=== PATIENT | female | born 1985 | race Caucasian/White ===

== ENCOUNTER 2023-06-15 09:55 | Outpatient (OUT) | payer OTHER, SELFPAY ==
[2023-06-15 10:20] LABS: Basophils Percent Auto 0.4 % (0.2-2.0); Eosinophils Absolute Auto 0.1 10^3/uL (0.0-0.7); Eosinophils Percent Auto 1.6 % (0.9-7.0); Hemoglobin 14.3 g/dL (12.0-16.0); Immature Granulocytes Abs Auto 0.01 10^3/uL (0.00-0.03); Immature Granulocytes Pct Auto 0.1 % (0.0-0.5); Lymphocytes Absolute Auto 1.9 10^3/uL (1.2-3.8); Lymphocytes Percent Auto 27.5 % (20.5-60.0); Mean Corpuscular HGB Conc 33.3 g/dL (29.9-35.2); Mean Corpuscular Hemoglobin 30.7 pg (26.7-34.0); Mean Corpuscular Volume 92.3 fL (81.0-99.0); Mean Platelet Volume 9.8 fL (9.5-13.5); Monocytes Absolute Auto 0.5 10^3/uL (0.3-0.8); Monocytes Percent Auto 7.1 % (1.7-12.0); Neutrophils Absolute Auto 4.2 10^3/uL (1.4-6.5); Neutrophils Percent Auto 63.3 % (43.0-75.0); Platelet Count 369 10^3/uL (150-450); Red Blood Count 4.66 10^6/uL (4.20-5.40); Red Cell Distribution Width 12.4 % (11.0-15.0); White Blood Count 6.7 10^3/uL (4.0-11.0)
[2023-06-15 10:32] LABS: Estimated Average Glucose 103 mg/dL; Glycohemoglobin A1C 5.2 % (4.5-6.2)
[2023-06-15 11:28] LABS: Alanine Aminotransferase 20 U/L (14-59); Albumin Level 3.7 g/dL (3.4-5.0); Alkaline Phosphatase 99 U/L (46-116); Anion Gap 14.5; Aspartate Amino Transferase 9 U/L (15-37); BUN Creatinine Ratio 9.4; Bilirubin Total 0.5 mg/dL (0.2-1.0); Calcium 9.1 mg/dL (8.5-10.1); Carbon Dioxide 26.6 mmol/L (21.0-32.0); Chloride 103 mmol/L (98-107); Chol HDL Ratio 3.1; Cholesterol 144 mg/dL (<=200); Estimated GFR (African America >60 (>=60); Estimated GFR (Non-African Ame >60 (>=60); Free T3 3.13 pg/mL (2.18-3.98); Globulin 3.6 g/dL; Glucose 102 mg/dL (74-106); HDL Cholesterol 47 mg/dL (40-60); LDL Cholesterol Calculated 80.6 mg/dL; Potassium 3.1 mmol/L (3.5-5.1); Sodium 141 mmol/L (136-145); Thyroid Stimulating Hormone 1.506 uIU/mL (0.358-3.740); Total Protein 7.3 g/dL (6.4-8.2); Triglycerides 82 mg/dL (<=150); VLDL CHOLESTEROL 16.4 mg/dL
[2023-06-17 12:07] LABS: Insulin 15.5 uIU/mL (2.6-24.9)
== END 2023-06-15 09:56 | disposition home or self-care (01) ==
PROVIDERS: PCP Family Medicine; Visit Provider Family Medicine
DX: Z00.00 Encounter for general adult medical examination without abnormal findings (principal); E78.5 Hyperlipidemia, unspecified; R73.09 Other abnormal glucose; D64.9 Anemia, unspecified
CPT/HCPCS: 36415; 80053; 80061; 83036; 83525; 83540; 84436; 84443; 84481; 85025

== ENCOUNTER 2023-09-03 12:31 | Outpatient (OUT) | payer OTHER, SELFPAY ==
--- OUTSIDE RECORDS SUMMARY | 2023-09-03 12:44 | XMS_ITS | CCD ---
Author Name Unknown Address [address] [facility] [address] [place] [id number] Organization [facility] Care Team Providers Care Goodwill Representative Name Role Phone MD Malu Fisher Primary Care Provider [phone] DO Alejandro Alvarez Attending Provider Kim, Alejandro Admitting Unavailable Visci, Alejandro Attending Unavailable Malu Fisher Primary Care Unavailable Viscelina, Alejandro Admitting Unavailable Viscelina, Alejandro Attending Unavailable Malu Fisher Primary Care Unavailable HOY ., DR TORIBIO Primary Care Unavailable HOY ., DR TORIBIO Admitting Unavailable HOY ., DR TORIBIO Attending Unavailable HOY ., DR TORIBIO Consulting Unavailable WEST, DR CHRISTINA Camara Consulting Unavailable HOY ., DR TORIBIO Primary Care Unavailable HOY ., DR TORIBIO Admitting Unavailable HOY ., DR TORIBIO Attending Unavailable HOY ., DR TORIBIO Consulting Unavailable HOY ., DR TORIBIO Primary Care Unavailable HOY ., DR TORIBIO Admitting Unavailable HOY ., DR TORIBIO Attending Unavailable HOY ., DR TORIBIO Consulting Unavailable HOY ., DR TORIBIO Primary Care Unavailable EMILY, DR LACEY Velazquez Attending Unavailteodoro DIAZ, DR LACEY Velazquez Consulting Unavailteodoro DIAZ, DR LACEY Velazquez Admitting Unavailteodoro e DISHA, DR CHRISTINA Camara Consulting Unavailable Malu Fisher Primary Care Physician [phone] Unavailable Unavailable Unavailable Allergies Allergy Classification Reported Allergen(s) Allergy Type Date of Onset Reaction(s) Facility (6 sources) Ciprofloxacin; Translations: [ciprofloxacin] Drug Allergy 12-03-2018 [facility] Repository (1 source) Ciprofloxacin Drug Allergy [facility] Repository Medications Current Medications Medication Drug Class(es) Dates Sig (Normalized) Sig (Original) acetaminophen 325 mg / HYDROcodone bitartrate 5 mg oral tablet (1 source) Opioid Agonist Start: 04-27-2022 take 1 tablet by mouth every six hours Hydrocodone-Aceta minophen Active 1 TAB PO Q6H 12 April 27, 2022 Bentyl (3 sources) Anticholinergic Start: 06-30-2017 Bentyl 20 mg, Refills(s) 0 Start Date: 06/30/17 Status: Ordered Start: 06-29-2017 End: 12-03-2018 take 20 mg by mouth four times daily Dicyclomine Discontinued 20 MG PO Four times daily June 29, 2017 1:59pm December 03, 2018 11:33am escitalopram 10 mg oral tablet (1 source) Serotonin Reuptake Inhibitor Start: 04-27-2022 take 1 tablet by mouth once daily Escitalopram Oxalate (Lexapro) 10 mg Tablet Active 10 MG PO Daily April 27, 2022 12:00am ibuprofen 600 mg oral tablet (4 sources) Nonsteroidal Anti-inflammatory Drug Start: 04-27-2022 Ibuprofen Active 600 MG PO Every 6 hours April 27, 2022 12:00am do not exceed 4 doses in a 24 hour period Start: 12-03-2018 End: 04-27-2022 Ibuprofen Discontinued 800 M G PO every 6 to 8 hours December 03, 2018 12:00am April 27, 2022 8:55am Zofran (3 sources) Serotonin-3 Receptor Antagonist Start: 06-30-2017 Zofran Refills(s) 0 Start Date: 06/30/17 Status: Ordered Start: 06-29-2017 End: 12-03-2018 take 1 tablet by mouth every eight hours Ondansetron (Zofran Odt) 4 mg tablet,disintegrating Discontinued 4 MG PO Q8H 9 3 June 29, 2017 1:00am December 03, 2018 11:33am pantoprazole 40 mg delayed release oral tablet (1 source) Proton Pump Inhibitor Start: 06-30-2017 take 1 tablet by mouth once daily Protonix 40 mg Tab-DR 40 mg = 1 tab(s), Oral, Daily, # 30 tab(s), Refills(s) 0 Start Date: 06/30/17 Status: Ordered Completed/Discontinued Medications Medication Drug Class(es) Dates Sig (Normalized) Sig (Original) acetaminophen 325 mg / oxyCODONE hydrochloride 5 mg oral tablet (5 sources) Opioid Agonist Start: 08-05-2019 End: 04-27-2022 take 1-2 tablets by mouth every six hours as needed for pain Oxycodone-Acetamino phen (Percocet) 5-325 mg tablet Discontinued 1 TAB PO Q6H 10 August 05, 2019 April 27, 2022 6:13am May take 1-2 tabs q 6 hours prn pain Start: 12-03-2018 End: 08-05-2019 take 1 tablet by mouth every eight hours Oxycodone-Acetaminophen (Percocet) 5-325 mg tablet Discontinued 1 TAB PO Q8H 7 3 December 03, 2018 August 05, 2019 7:17am loperamide hydrochloride 2 mg oral tablet (2 sources) Opioid Agonist Start: 06-29-2017 End: 12-03-2018 Loperamide (Imodium A-D) 2 mg capsule Discontinued 2 MG PO EVERY 1-2 HOURS June 29, 2017 1:00am December 03, 2018 11:33am after each loose stool until symptoms controlled; do not exceed 16 mg total dose in 24 hrs tamsulosin hydrochloride 0.4 mg oral capsule (3 sources) alpha-Adrenerg ic Thania Start: 12-03-2018 End: 08-05-2019 take 1 capsule by mouth once daily at bedtime Tamsulosin (Flomax) 0.4 mg capsule Discontinued 0.4 MG PO Daily at bedtime 7 7 December 03, 2018 12:00am August 05, 2019 7:17am Problems Active Problems Problem Classification Problem Date Documented Date Episodic/Chronic Abdominal pain (3 sources) Abdominal pain; Translations: [Unspecified abdominal pain] 06-29-2017 Episodic Calculus of urinary tract (3 sources) Kidney stone; Translations: [Calculus of kidney] 12-03-2018 Episodic Menstrual disorders (1 source) Excessive and frequent menstruation with regular cycle; Translations: [Excessive and frequent menstruation with regular cycle] Onset: 04-27-2022 Chronic Other nervous system disorders (1 source) Acute postoperative pain; Translations: [Other acute postprocedural pain] 04-27-2022 Episodic Other nervous system disorders (1 source) Other acute postprocedural pain; Translations: [Other acute postprocedural pain] Onset: 04-27-2022 Episodic Other screening for suspected conditions (not mental disorders or infectious disease) (4 sources) Encounter for screening mammogram for malignant neoplasm of breast; Translations: [ENC SCR MAMMO MALIG NEOPLASM BREAST] Onset: 08-04-2022 Episodic Residual codes; unclassified (1 source) Family history of malignant neoplasm of breast; Translations: [FAMILY HX MALIG NEOPLASM OF BREAST] Onset: 08-11-2022 Episodic Sprains and strains (2 sources) Unspecified sprain of right shoulder joint, initial encounter; Translations: [Sprain of ligament of right shoulder joint] Onset: 07-19-2023 Episodic Unclassified (1 source) Encounter for preprocedural laboratory examination; Translations: [Encounter for preprocedural laboratory examination] Onset: 04-25-2022 Unclassified (3 sources) COUGH, UNSPECIFIED; Translations: [COUGH, UNSPECIFIED] Onset: 07-17-2022 Unclassified (1 source) CONTACT W/AND (SUSP) EXPOS COVID-19; Translations: [CONTACT W/AND (SUSP) EXPOS COVID-19] Onset: 07-17-2022 Past or Other Problems Problem Classification Problem Date Documented Da te Episodic/Chronic Unclassified (1 source) COUGH, UNSPECIFIED; Translations: [COUGH, UNSPECIFIED] Onset: 07-13-2022 Results Test Name Value Interpretation Reference Range Facility CBC AUTO DIFFon 11-07-2022 BASO # 0.0 103/ul Normal 0.0-0.1 [facility] Comment on above: Performed By: #### C BC #### [facility] [address] [place] [address] Dr. Javy Jack Basophils/100 WBC (Bld) 0.4 % Normal 0.2-2.0 [facility] Comment on above: Performed By: #### C BC #### [facility] [address] [place] [address] Dr. Javy Jack EO # 0.2 103/ul Normal 0.0-0.[address] [facility] Comment on above: Performed By: #### C BC #### [facility] [address] [place] [address] Dr. Javy Jack Eosinophils/100 WBC (Bld) 2.0 % Normal 0.9-7.0 [facility] Comment on above: Performed By: #### C BC #### [facility] [address] [place] [address] Dr. Javy Jack Erythrocyte distribution width (RBC) [Ratio] 12.5 % Normal 11.0-15.0 [facility] Comment on above: Performed By: #### C BC #### [facility] [address] [place] [address] Dr. Javy Jack Hematocrit (Bld) [Volume fraction] 43.7 % Normal 36.0-48.0 [facility] Comment on above: Performed By: #### C BC #### [facility] [address] [place] [address] Dr. Javy Jack Hemoglobin (Bld) [Mass/Vol] 14.2 g/dL Normal 12.0-16.0 [facility] Comment on above: Performed By: #### C BC #### [facility] [address] [place] [address] Dr. Javy Jack IG # 0.01 10e3/ul Normal 0.00-0.03 [facility] Comment on above: Performed By: #### C BC #### [facility] [address] [place] [address] Dr. Javy Jack IG % 0.1 % Normal 0.0-0.5 [facility] Comment on above: Performed By: #### C BC #### [facility] [address] [place] [address] Dr. Javy Jack LYMPH # 2.5 103/ul Normal 1.2-3.8 [facility] Comment on above: Performed By: #### C BC #### [facility] [address] [place] [address] Dr. Javy Jack Lymphocytes/100 WBC (Bld) 33.8 % Normal 20.5-60.0 [facility] Comment on above: Performed By: #### C BC #### [facility] [address] [place] [address] Dr. Javy Jack MANUAL DIFF REQ NO Normal [facility] Comment on above: Performed By: #### C BC #### [facility] [address] [place] [address] Dr. Javy Jack MCH (RBC) [Entitic mass] 30.1 pg Normal 26.7-34.0 [facility] Comment on above: Performed By: #### C BC #### [facility] [address] [place] [address] Dr. Javy Jack MCHC (RBC) [Mass/Vol] 32.5 g/dL Normal 29.9-35.[address] [facility] Comment on above: Performed By: #### C BC #### [facility] [address] [place] [address] Dr. Javy Jack MCV (RBC) [Entitic vol] 92.8 fL Normal 81.0-99.0 [facility] Comment on above: Performed By: #### C BC #### [facility] [address] [place] [address] Dr. Javy Jack MONO # 0.7 103/ul Normal 0.3-0.8 [facility] Comment on above: Performed By: #### C BC #### [facility] [address] [place] [address] Dr. Javy Jack Monocytes/100 WBC (Bld) 9.3 % Normal 1.7-12.0 [facility] Comment on above: Performed By: #### C BC #### [facility] [address] [place] [address] Dr. Javy Jack NEUT # 4.1 103/ul Normal 1.4-6.[address] [facility] Comment on above: Performed By: #### C BC #### [facility] [address] [place] [address] Dr. Javy Jack Neutrophils/100 WBC (Bld) 54.4 % Normal 43.0-75.[address] [facility] Comment on above: Performed By: #### C BC #### [facility] [address] [place] [address] Dr. Javy Jack Platelet mean volume (Bld) [Entitic vol] 10.1 fL Normal 9.5-13.[address] [facility] Comment on above: Performed By: #### C BC #### [facility] [address] [place] [address] Dr. Javy Jack PLT 366 103/ul Normal 150-450 [facility] Comment on above: Performed By: #### C BC #### [facility] [address] [place], [place] [address] Dr. Javy Jack RBC 4.71 106/ul Normal 4.20-5.40 [facility] Comment on above: Performed By: #### C BC #### [facility] [address] [place], [place] [address] Dr. Javy Jack WBC 7.5 103/ul Normal 4.0-11.0 [facility] Comment on above: Performed By: #### C BC #### [facility] [address] [place], [place] [address] ABD/PELVIS WO CONon 11-07 CT ABD/PELVIS WO CON EXAMINATION: CT ABD/PELVIS WO CON, 11/07/2022 8:10 AM EDT HISTORY: CALCULUS OF KIDNEY COMPARISON: None. TECHNIQUE: CT scan of the abdomen and pelvis was performed without IV contrast. CT dose reduction technique was used, including Automated Exposure Control. FINDINGS: LUNG BASES: No visible pulmonary or pleural disease. LIVER: No enlargement, atrophy, abnormal density, or significant focal lesion. BILIARY: Surgical clips from cholecystectomy PANCREAS: No lesion, fluid collection, ductal dilatation, or atrophy. SPLEEN: No enlargement or focal lesion. ADRENALS: No mass or enlargement. KIDNEYS: Asymmetric enlargement of the right kidney. Mild right hydroureteronephrosi s extending to a 3 mm stone in the distal right ureter axial image 112, 1 cm proximal to the ureterovesical junction. Bilateral nonobstructing nephrolithiasis. No left obstructive uropathy. BOWEL/MESENTERY: No visible mass, obstruction, or bowel wall thickening. Normal appendix AORTA/VASCULAR: No aneurysm or dissection. RETROPERITONEUM: No mass or adenopathy. LYMPH NODES: No adenopathy. URINARY BLADDER: No visible focal wall thickening, lesion, or calculus. PELVIC ORGANS: Hysterectomy ABDOMINAL WALL: No mass or hernia. BONES: No bony lesion or fracture. Rotatory dextrocurvature centered at L2 OTHER: Negative. IMPRESSION: 3 mm distal right ureterolith with associated mild right obstructive uropathy Electronically authenticated by: CHRISTINA GAUTHIER Date: 2022-11-07 09:05 Normal [facility] ER URINE PROFILEon 3 Bilirubin Ql (U) Negative Normal NEGATIVE [facility] Comment on above: Performed By: #### Harika BUCK UMICRO #### [facility] [address] [place] [address] Dr. Javy Jack Clarity (U) CLEAR Normal CLEAR [facility] Comment on above: Performed By: #### E JOANR, UMICRO #### [facility] [address] [place] [address] Dr. Javy Jack Color (U) YELLOW Normal YELLOW [facility] Comment on above: Performed By: #### E HEBER UMICRO #### [facility] [address] [place] [address] Dr. Javy MENJIVAR A micrscopic examination will be performed if indicated. Normal [facility] Comment on above: Performed By: #### Harika BUCK UMICRO #### [facility] [address] [place] [address] Dr. Javy Jack Glucose Ql (U) Negative Normal NEGATIVE [facility] Comment on above: Performed By: #### Harika BUCK UMICRO #### [facility] [address] [place] [address] Dr. Javy Jack Hemoglobin Ql (U) MODERATE Abnormal NEGATIVE The [facility] Comment on above: Performed By: #### Harika BUCK UMICRO #### [facility] [address] [place] [address] Dr. Javy Jack Ketones Ql (U) TRACE Abnormal NEGATIVE [facility] [place] [facility] Comment on above: Performed By: #### Harika BUCK UMICRO #### [facility] [address] [place] [address] Dr. Javy Jack LEUKOCYTES Negative Normal NEGATIVE [facility] Comment on above: Performed By: #### Harika BUCK UMICRO #### [facility] [address] [place] [address] Dr. Javy Jack Nitrite Ql (U) Negative Normal NEGATIVE [facility] [place] [facility] Comment on above: Performed By: #### Harika BUCK UMICRO #### [facility] [address] [place] [address] Dr. Javy Jack pH (U) 5.5 [pH] Normal 5-[address] [facility] Comment on above: Performed By: #### SERA DARBY #### [facility] [address] [place] [address] Dr. Javy Jack SPEC GRAVITY >=1.030 Abnormal 1.005-<=1.025 [facility] Comment on above: Performed By: #### TERI DARBYRO #### [facility] [address] [place] [address] Dr. Javy Jack UA PROTEIN Negative Normal NEGATIVE/ TRACE [facility] Comment on above: Performed By: #### TERI DARBYRO #### [facility] [address] [place] [address] Dr. Javy Jack UR MICRO IND INDICATED Normal [facility] Comment on above: Performed By: #### SERA DARBY #### [facility] [address] [place] [address] Dr. Javy Jack Urobilinogen Qn (U) 0.2 {Felecia'U}/dL Normal 0.2 - 1. 0 [facility] Comment on above: Performed By: #### SERA DARBY #### [facility] [address] [place] [address] Dr. Javy Jack URINE MICROSCOPIC ONLYon BACTERIA TRACE Abnormal NONE SEEN [facility] Comment on above: Performed By: #### TERI DARBYRO #### [facility] [address] [place] [address] Dr. Javy Jack Bacteria identified Cx Nom (U) NOT INDICATED Normal [facility] Comment on above: Performed By: #### TERI DARBYRO #### [facility] [address] [place] [address] Dr. Javy Jack CAST NONE SEEN Normal NONE SEEN [facility] Comment on above: Performed By: #### SERA DARBY #### [facility] [address] [place] [address] Dr. Javy Jack Crystals LM Nom (Urine sed) NONE SEEN Normal NONE SEEN [facility] Comment on above: Performed By: #### E RUR, UMICRO #### [facility] [address] [place] [address] [address] Javy Jack Epithelial cells LM Ql (Urine sed) FEW Abnormal NONE SEEN /RARE [facility] Comment on above: Performed By: #### E RUR, UMICRO #### [facility] [address] [place] [address] [address] Javy Jack MUCOUS TRACE Abnormal NONE SEEN [facility] Comment on above: Performed By: #### E RUR, UMICRO #### [facility] [address] [place] [address] [address] Javy Jack RBC 5-10 Abnormal 0-[address] [facility] Comment on above: Performed By: #### E RUR, UMICRO #### [facility] [address] [place] [address] [address] Javy Jack WBC NONE SEEN Normal NONE SEEN [facility] Comment on above: Performed By: #### E RUR, UMICRO #### [facility] [address] [place] [address] Dr. Javy Jack MG MAMM SCREEN 3D YEISON CADon 08-04-2022 MG MAMM SCREEN 3D YEISON CAD Patient: MEERA ARENAS Exam Date: 08/04/2022 : 1985 Gender:F Ordering : DR MALU FISHER . Admission #: [id number] Family : Order #: [id number] CLICK HERE TO VIEW EXAM RADIOLOGY REPORT PROCEDURE: MAMMOGRAM SCREENING 3D BILATERAL CAD COMPARISON: None. INDICATIONS: Screening mammography Calculator Name NCI Breast Cancer Risk Assessment Tool 5 Year Breast Cancer Risk Not Reported. Lifetime Breast Cancer Risk Not Reported. Personal Breast Cancer No Personal Ovarian Cancer No Treatments None Family Cancers None LOCATION: [facility] BREAST COMPOSITION: Heterogeneously dense,which may obscure small masses. FINDINGS: DIAGNOSTIC CATEGORY 2--BENIGN FINDING: Scattered benign-appearing calcifications are present. Scattered benign-appearing lymph nodes are present. RIGHT BREAST: No significant suspicious finding. Reniform nodule upper outer quadrant, posterior breast likely intramammary lymph node LEFT BREAST: No significant suspicious finding. RECOMMENDATIONS: CLINICAL EVALUATION. PLEASE NOTE: A NORMAL MAMMOGRAM DOES NOT EXCLUDE THE POSSIBILITY OF BREAST CANCER. A CLINICALLY SUSPICIOUS PALPABLE LUMP SHOULD BE BIOPSIED. Dictated by: Christina Gauthier MD on 08/04/2022 at 13:42 Approved by: Christina Gauthier MD on 08/04/2022 at 13:44 Normal [address] [facility] INSULINon 07-19-2022 Insulin 23.9 uIU/mL Normal 2.6-24.[address] [facility] Comment on above: Performed By: #### I NSULIN ####[facility] [id number] [place] [address]Dr. Javy Jack CBC AUTO DIFFon 07-18-2022 BASO # 0.0 103/ul Normal 0.0-0.1 [facility] Comment on above: Performed By: #### C BC #### [facility] [address] [place] [address] [address] Javy Jack Basophils/100 WBC (Bld) 0.4 % Normal 0.2-2.0 [facility] Comment on above: Performed By: #### C BC #### [facility] [address] [place] [address] [address] Javy Jack EO # 0.1 103/ul Normal 0.0-0.7 [facility] Comment on above: Performed By: #### C BC #### [facility] [address] [place] [address] [address] Javy Jack Eosinophils/100 WBC (Bld) 1.9 % Normal 0.9-7.0 [facility] Comment on above: Performed By: #### C BC #### [facility] [address] [place] [address] [address] Javy Jack Erythrocyte distribution width (RBC) [Ratio] 12.4 % Normal 11.0-15.0 [facility] Comment on above: Performed By: #### C BC #### [facility] [address] [place] [address] [address] Javy Jack Hematocrit (Bld) [Volume fraction] 42.5 % Normal 36.0-48.0 [facility] Comment on above: Performed By: #### C BC #### [facility] [address] [place] [address] Dr. Javy Jack Hemoglobin (Bld) [Mass/Vol] 14.1 g/dL Normal 12.0-16.0 [facility] Comment on above: Performed By: #### C BC #### [facility] [address] [place] [address] Dr. Javy Jack IG # 0.02 10e3/ul Normal 0.00-0.03 [facility] Comment on above: Performed By: #### C BC #### [facility] [address] [place] [address] Dr. Javy Jack IG % 0.3 % Normal 0.0-0.5 [facility] Comment on above: Performed By: #### C BC #### [facility] [address] [place] [address] Dr. Javy Jack LYMPH # 1.9 103/ul Normal 1.2-3.[address] [facility] Comment on above: Performed By: #### C BC #### [facility] [address] [place] [address] Dr. Javy Jack Lymphocytes/100 WBC (Bld) 28.0 % Normal 20.5-60.0 [facility] Comment on above: Performed By: #### C BC #### [facility] [address] [place] [address] Dr. Javy Jack MANUAL DIFF REQ NO Normal [facility] Comment on above: Performed By: #### C BC #### [facility] [address] [place] [address] Dr. Javy Jack MCH (RBC) [Entitic mass] 29.6 pg Normal 26.7-34.0 [facility] Comment on above: Performed By: #### C BC #### [facility] [address] [place] [address] Dr. Javy Jack MCHC (RBC) [Mass/Vol] 33.2 g/dL Normal 29.9-35.2 [facility] Comment on above: Performed By: #### C BC #### [facility] [address] [address] [address] Javy Jack MCV (RBC) [Entitic vol] 89.1 fL Normal 81.0-99.[address] [facility] Comment on above: Performed By: #### C BC #### [facility] [address] [place] [address] Dr. Javy Jack MONO # 0.6 103/ul Normal 0.3-0.[address] [facility] Comment on above: Performed By: #### C BC #### [facility] [address] [place] [address] Dr. Javy Jack Monocytes/100 WBC (Bld) 8.6 % Normal 1.7-12.[address] [facility] Comment on above: Performed By: #### C BC #### [facility] [address] [place] [address] Dr. Javy Jack NEUT # 4.1 103/ul Normal 1.4-6.[address] [facility] Comment on above: Performed By: #### C BC #### [facility] [address] [place] [address] Dr. Javy Jack Neutrophils/100 WBC (Bld) 60.8 % Normal 43.0-75.[address] [facility] Comment on above: Performed By: #### C BC #### [facility] [address] [place] [address] Dr. Javy Jack Platelet mean volume (Bld) [Entitic vol] 9.6 fL Normal 9.5-13.[address] [facility] Comment on above: Performed By: #### C BC #### [facility] [address] [place] [address] Dr. Javy Jack PLT 359 103/ul Normal 150-[address] [facility] Comment on above: Performed By: #### C BC #### [facility] [address] [place] [address] Dr. Javy Jack RBC 4.77 106/ul Normal 4.20-5.[address] [facility] Comment on above: Performed By: #### C BC #### [facility] [address] [place] [address] Dr. Javy Jack WBC 6.8 103/ul Normal 4.0-11.0 [facility] Comment on above: Performed By: #### C BC #### [facility] [address] [place] [address] Dr. Javy Jack FREE THYROXINE INDEX T7on FTI 3.07 Normal 1.30-4.50 [facility] Comment on above: Performed By: #### T SH, T7, LIPID, CMP #### [facility] [address] [address] [address] Javy Jack T3U 33.0 % Normal 30.0-39.0 [facility] Comment on above: Performed By: #### T SH, T7, LIPID, CMP #### [facility] [address] [place] [address] Dr. Javy Jack T4 [Mass/Vol] 9.30 ug/dL Normal 4.80-13.90 [facility] Comment on above: Performed By: #### T SH, T7, LIPID, CMP #### [facility] [address] [place] [address] Dr. Javy Jack GLYCOHEMOGLOBIN A1Con 2022 ADA RECOMMENDATION SEE BELOW Normal [facility] Comment on above: Result Comment: ADA RECOMMENDED LIMIT 4.0 - 6.0 ADA THERAPEUTIC TARGET < 7.0 ACTION SUGGESTED > 7.0 Performed By: #### A 1C #### [facility] [address] [place] [address] Dr. Javy Jack Glucose [Mass/Vol] 108 mg/dL Normal [facility] Comment on above: Performed By: #### A 1C #### [facility] [address] [place] [address] Dr. Javy Jack HbA1c (Bld) [Mass fraction] 5.4 % Normal 4.5-6.2 [facility] Comment on above: Performed By: #### A 1C #### [facility] [address] [place] [address] Dr. Javy Jack IRONon 07-18-2022 Iron [Mass/Vol] 92.0 ug/dL Normal 50.0-170.0 [facility] Comment on above: Performed By: #### I MILAGROS #### [facility] [address] [address] [address] Javy Jack LIPID PROFILEon 07-18-2022 CHOL-HDL RATIO NORM SEE BELOW Normal [facility] Comment on above: Result Comment: 3.3 - 4.4 LOW RISK 4.4 - 7.1 AVERAGE RISK 7.1 - 11.0 MODERATE RISK >11.0 HIGH RISK Performed By: #### T SH, T7, LIPID, CMP #### [facility] [address] [address] [address] Javy Jack Cholesterol [Mass/Vol] 162 mg/dL Normal <=200 [facility] Comment on above: Performed By: #### T SH, T7, LIPID, CMP #### [facility] [address] [address] [address] Javy Jack Cholesterol in HDL [Mass/Vol] 51 mg/dL Normal 40-60 [facility] Comment on above: Performed By: #### T SH, T7, LIPID, CMP #### [facility] [address] [address] [address] Javy Jack Cholesterol in LDL [Mass/Vol] 89.6 mg/dL Normal [facility] Comment on above: Performed By: #### T SH, T7, LIPID, CMP #### [facility] [address] [address] [address] Javy Jack Cholesterol.total/Ch olesterol in HDL [Mass ratio] 3.2 {ratio} Normal [facility] Comment on above: Performed By: #### T SH, T7, LIPID, CMP #### [facility] [address] [address] [address] Javy Jack HDL NORMAL > or = 60 mg/dl - LOW CARDIOVASCULAR RISK <40 mg/dl - HIGH CARDIOVASCULAR RISK Normal [facility] Comment on above: Performed By: #### T SH, T7, LIPID, CMP #### [facility] [address] [address] [address] Javy Jack LDL CALC NORMAL SEE BELOW Normal [facility] Comment on above: Result Comment: <100 mg/dl OPTIMAL 100 - 129 mg/dl NEAR OR ABOVE OPTIMAL 130 - 159 mg/dl BORDERLINE HIGH 160 - 189 mg/dl HIGH >190 mg/dl VERY HIGH Performed By: #### T SH, T7, LIPID, CMP #### [facility] [address] [address] [address] Javy Jack Triglyceride [Mass/Vol] 107 mg/dL Normal <=150 [facility] Comment on above: Performed By: #### T SH, T7, LIPID, CMP #### [facility] [address] [address] [address] Javy Jack VLDL CALC 21.4 mg/dL Normal [facility] Comment on above: Performed By: #### T AIDE, T7, LIPID, CMP #### [facility] [address] [address] [address] Javy Jack PROF 14(COMP METB)on 023 Albumin [Mass/Vol] 3.7 g/dL Normal 3.4-5.0 [facility] Comment on above: Performed By: #### T SH, T7, LIPID, CMP ####[facility] [address] [address]DrDane Jack Albumin/Globulin [Mass ratio] 1.1 {ratio} Normal [facility] Comment on above: Performed By: #### T SH, T7, LIPID, CMP ####[facility] [address] [id number] Jack ALP [Catalytic activity/Vol] 109 U/L Normal 46-116 [facility] Comment on above: Performed By: #### T SH, T7, LIPID, CMP ####[facility] [address] [id number] Jack ALT [Catalytic activity/Vol] 33 U/L Normal 14-59 [facility] Comment on above: Performed By: #### T SH, T7, LIPID, CMP ####[facility] [address] [id number] Jack Anion gap [Moles/Vol] 12.6 mmol/L Normal [facility] Comment on above: Performed By: #### T SH, T7, LIPID, CMP ####[facility] [address] [address]Dr. Javy Jack AST [Catalytic activity/Vol] 15 U/L Normal 15-[address] [facility] Comment on above: Performed By: #### T SH, T7, LIPID, CMP ####[facility] [address] [place], [place] [address]Dr. Javy Jack Bilirubin [Mass/Vol] 0.3 mg/dL Normal 0.2-1.0 [facility] Comment on above: Performed By: #### T SH, T7, LIPID, CMP ####[facility] [address] [place], [place] [address]Dr. Javy Jack Calcium [Mass/Vol] 9.0 mg/dL Normal 8.5-10.1 [facility] Comment on above: Performed By: #### T SH, T7, LIPID, CMP ####[facility] [address] [place], [place] [address]Dr. Javy Jack Chloride [Moles/Vol] 102 mmol/L Normal 98-[address] [facility] Comment on above: Performed By: #### T SH, T7, LIPID, CMP ####[facility] [address] [place], [place] [address]Dr. Javy Jack CO2 [Moles/Vol] 27.1 mmol/L Normal 21.0-32.0 [facility] Comment on above: Performed By: #### T SH, T7, LIPID, CMP ####[facility] [address] [place], [place] [address]Dr. Javy Jack Creatinine [Mass/Vol] 0.61 mg/dL Normal 0.55-1.02 [facility] Comment on above: Performed By: #### T SH, T7, LIPID, CMP ####[facility] [address] [place], [place] [address]Dr. Javy Jack EGFR-AF TONGAN >60 Normal >=60 [facility] Comment on above: Performed By: #### T SH, T7, LIPID, CMP ####[facility] [address] [place], [place] [id number]. Javy Jack EGFR-NON AF TONGAN >60 Normal >=[address] [facility] Comment on above: Performed By: #### T SH, T7, LIPID, CMP ####[facility] [address] [address]Dr. Javy Jack Globulin (S) [Mass/Vol] 3.3 g/dL Normal [facility] Comment on above: Performed By: #### T SH, T7, LIPID, CMP ####[facility] [address] [address]Dr. Javy Jack Glucose [Mass/Vol] 122 mg/dL Critically high 74-106 [facility] Comment on above: Performed By: #### T SH, T7, LIPID, CMP ####[facility] [address] [address]Dr. Javy Jack Potassium [Moles/Vol] 3.7 mmol/L Normal 3.5-5.[address] [facility] Comment on above: Performed By: #### T SH, T7, LIPID, CMP ####[facility] [address] [address]Dr. Javy Jack Protein [Mass/Vol] 7.0 g/dL Normal 6.4-8.2 [facility] Comment on above: Performed By: #### T SH, T7, LIPID, CMP ####[facility] [address] [address]Dr. Javy Jack Sodium [Moles/Vol] 138 mmol/L Normal 136-145 [facility] Comment on above: Performed By: #### T SH, T7, LIPID, CMP ####[facility] [address] [address]Dr. Javy Jack Urea nitrogen [Mass/Vol] 9.0 mg/dL Normal 7.0-18.[address] [facility] Comment on above: Performed By: #### T SH, T7, LIPID, CMP ####[facility] [address] [address]Dr. Javy Jack Urea nitrogen/Creatinine [Mass ratio] 14.8 mg/mg Normal [facility] Comment on above: Performed By: #### T SH, T7, LIPID, CMP ####[facility] [address] [phone]. Javy Jack TSHon 07-18-2022 TSH 1.115 uIU/mL Normal 0.358-3.740 [facility] Comment on above: Performed By: #### T SH, T7, LIPID, CMP ####[facility] [address] [phone]. Javy Jack [facility]25 SARS-CoV-2 (COVID-19) RNA JESSICA+probe Ql (Unsp spec) Not detected Normal NOT DETECTED [facility] Comment on above: Result Comment: When diagnostic testing is negative, the possibility of a false negative should be considered in the context of a patient's recent exposures and the presence of clinical signs and symptoms consistent with SARS-CoV-2. This test is not yet approved or cleared by the [place] FDA. When there are no FDA-approved or cleared tests available, and other criteria are met, FDA can make tests available under an emergency access mechanism called an Emergency Use Authorization (EUA). The EUA for this test is supported by the [employer] of Health and Human Service's declaration that circumstances exist to justify the emergency use of in vitro diagnostics for the detection and/or diagnosis of the virus that causes COVID-19. This EUA will remain in effect for the duration of the COVID-19 declaration justifying emergency of IVDs, unless it is terminated or revoked by the FDA (after which the test may no longer be used). Performed By: #### C VDTBH ####[facility] [address] [address]Dr. Javy Jack INFLUENZA A AND B AGon 07-13 INFLUANEGH SEE BELOW Normal [facility] Comment on above: Result Comment: Nega tive for Flu A protein angiten. Infection due to Flu A cannot be ruled out. Flu A angiten in the sample may be below the detection limit of the test. Performed By: #### I NFLUAB ####[facility] [address] [place], [place] [address]Dr. Javy Jack INFLUBNEGH SEE BELOW Normal [facility] Comment on above: Result Comment: Nega tive for Flu B protein antigen. Infection due to Flu B cannot be ruled out. Flu B antigen in the sample may be below the detection limit of the test. Performed By: #### I NFLUAB ####[facility] [address] [phone]. Javy Jack INFLUENZA A AG Negative Normal NEGATIVE SEE COMMENT [facility] Comment on above: Performed By: #### I NFLUAB ####[facility] [address] [place], [place] [address]Zg. Javy Jack INFLUENZA B AG Negative Normal NEGATIVE SEE COMMENT The [facility] Comment on above: Performed By: #### I NFLUAB ####[facility] [address] [phone]. Javy Jack HCG ( test) IA.nagi d Ql (U)Ordered By: Christina Anderson on 04-27-2022 HCG ( test) Ql (U) Negative [facility] HCG,Urineon 04-27-2022 Beta HCG ( test) Ql (U) Negative Normal [facility] Comment on above: Result Comment: PERF ORMED BY: [place] [address] PATHOLOGIST HARDWARE TECHNICIAN TAYLOR AMARAL M.D. Performed By: #### U HCG #### [address] 04-27-2022 L Specimen: [id number] Received: 04/27/22 Status: SRIDEVI Grimm Num: [id number] Spec Type: Surgical Subm Dr: Alejandro Alvarez DO Tissues: A Uterus w/ or w/o tubes ovaries except neoplastic or prolap (UTERUS, CERVIX A Uterus w/ or w/o tubes ovaries-neoplastic Procedures: , Gross/Micro L5, Gross/Micro L2 Age/ Patient Sex Location Account Attending Physician Meera Rivera 36/F [place] [id number] Alejandro Alvarez DO SPEC NUM: [id number] RECD: 04/27/22 STATUS: SRIDEVI GRIMM NUM: [id number] DICK: 04/27/22 [facility] DR: Alejandro Alvarez DO ENTERED: 04/27/[address] [facility] [address]: JOHNNIE TYPE: Surgical DEPT: S ORDERED: , Gross/Micro L5, Gross/Micro L2 ORDERED: , Gross/Micro L5, Gross/Micro L2 Pathological Diagnosis Uterus with cervix and bilateral fallopian tubes, total hysterectomy and bilateral salpingectomy: - Cervix with dilated vessels. - Late secretory phase endometrium. - Myometrium and serosa with no significant histopathology. - Bilateral fallopian tubes with hydrosalpinx and inclusion cyst. - No evidence of dysplasia, hyperplasia or malignancy identified. Clinical Information Menorrhagia, pelvic pain, hydrosalpinx, gram [id number] Gross Description Received in formalin labeled with the patient's name, number and uterus, cervix, bilateral tubes is a 112 g, 8.7 x 6.2 x 4.5 cm uterus with attached bilateral fallopian tubes. The uterine serosa is thompson-pink. The exocervix is purple pink with a central 0.7 cm patent os. The endocervix is thompson, unremarkable. The lush, thompson-red endometrium averages 0.4 cm in thickness. The pink-thompson, trabecular myometrium measures up to 1.4 cm in thickness. No myometrial lesions are identified the right purple pink fallopian tube measures 7.0 x 1.0 cm and has been previously opened at the distal end of the tube. No discrete fallopian scratch that no discrete fimbriae are identified. The lumen is dilated to 0.8 cm. The left purple pittman fallopian tube measures 5.5 x 1.3 x 0.7 cm. The fallopian tube has a blunt distal and. No fimbriae are identified. The lumen is dilated to 0.4 cm. Counter Professional sections are Specimen: [id number] Received: 04/27/22 Status: SRIDEVI Francisclaude Num: [id number] Spec Type: Surgical Subm Dr: Alejandro Alvarez, Tissues: A Uterus w/ or w/o tubes ovaries except neoplastic or prolap (UTERUS, CERVIX A Uterus w/ or w/o tubes ovaries-neoplastic Procedures: HE/7, Gross/Micro L5, Gross/Micro L2 Patient: Meera Rivera [id number] (Continued) Specimen: [id number] Received: 04/27/22 (Continued) Gross Description (Continued) Signed (signature on file) Rajat Taylor MD 04/28/22 1102 Specimen: [id number] Received: 04/27/22 Status: SRIDEVI Grimm Num: [id number] Spec Type: Surgical Subm Dr: Alejandro Alvarez DO Tissues: A Uterus w/ or w/o tubes ovaries except neoplastic or prolap (UTERUS, CERVIX A Uterus w/ or w/o tubes ovaries-neoplastic Procedures: HE/7, Gross/Micro L5, Gross/Micro L2 Patient: Meera Rivera [id number] (Continued) Specimen: [id number] Received: 04/27/22 (Continued) Gross Description (Continued) submitted in 7 cassettes as follows: A1 - Anterior cervix A2 - Posterior cervix A3 - Anterior endomyometrium A4 - Posterior endomyometrium A5 - Serosa A6 - Right fallopian tube A7 - Left fallopian tube Microscopic Description Seven glass slides with H E stained material have been examined. The microscopic findings support the above pathologic diagnosis. CPT Codes 88137 Specimen: [id number] Received: 04/27/22 Status: SRIDEVI Grimm Num: [id number] Spec Type: Surgical Subm Dr: Alejandro Alvarez, Tissues: A Uterus w/ or w/o tubes ovaries except neoplastic or prolap (UTER (more content not included)... Normal [facility] COVID-19 FRon 04-25-2022 SARS-CoV-2 (COVID-19) RNA JESSICA+probe Ql (Unsp spec) Negative Normal Negative [facility] Comment on above: Order Comment: Healt hcare Worker?: N Result Comment: Testing for SARS-CoV-2 by RT-PCR This test was developed and its performance characteristics determined by [employer] and validated at the [facility]. This test has not been FDA cleared or approved. This test has been authorized by FDA under an Emergency Use Authorization (EUA). This test has been validated in accordance with the FDA's Guidance Document (Policy for Diagnostics Testing in Laboratories Certified to Perform High Complexity Testing under CLIA prior to Emergency Use Authorization for Coronavirus Disease-2019 during the Public Health Emergency) issued on September 25, 2019. This test is only authorized for the duration of time the declaration that circumstances exist justifying the authorization of the emergency use of in vitro diagnostic tests for detection of SARS-CoV-2 virus and/or diagnosis of COVID-19 infection under section 564(b)(1) of the Act, 21 U.S.C. 360bbb-3(b)(1), unless the authorization is terminated or revoked sooner. PERFORMED BY: [place] [address] PATHOLOGIST HARDWARE TECHNICIAN TAYLOR AMARAL M.D. Performed By: #### C OVID 19 [facility] #### [address] COVID-19 Positive/NegativeOr dered By: Alejandro Alvarez on 04-25-2022 SARS-CoV-2 (COVID-19) N gene JESSICA+probe Ql (Resp) Negative Negative [facility] Comment on above: Testing for SARS-CoV -2 by RT-PCRThis test was developed and its performance characteristics determined by [employer] and validated at the [facility]. This test has not been FDA cleared or approved. This test has been authorized by FDA under an Emergency Use Authorization (EUA). This test has been validated in accordance with the FDA's Guidance Document (Policy for Diagnostics Testing in Laboratories Certified to Perform High Complexity Testing under CLIA prior to Emergency Use Authorization for Coronavirus Disease-2019 during the Public Health Emergency) issued on September 25, 2019. This test is only authorized for the duration of time the declaration that circumstances exist justifying the authorization of the emergency use of in vitro diagnostic tests for detection of SARS-CoV-2 virus and/or diagnosis of COVID-19 infection under section 564(b)(1) of the Act, 21 U.S.C. 360bbb-3(b)(1), unless the authorization is terminated or revoked sooner. Provider Letteron 03-13-2022 Provider Letter March 13, 2022 MEERA ARENAS [address] [place] [address] MEERA ARENAS 1985 Dear Meera Arenas, We have been trying to reach you with no success. It is important that you return our call regarding your referral from Dr. Blayne Valencia upon receiving this letter. Thank you for your prompt attention to this matter. Sincerely, [facility] Normal [facility] CT Abdomen/Pelvis w/ Contras ton 03-10-2022 CT Abdomen/Pelvis w/ Contrast HISTORY: Bloating. Dysmenorrhea. COMPARISON: Pelvic ultrasound 02/17/2022 TECHNIQUE: Multiple axial images were obtained of the abdomen and pelvis with contrast. Multiplanar reformats were acquired at the CT console. Oral contrast was also given. Delayed images were obtained. All CT scans at this facility use dose modulation, iterative reconstruction, and/or weight based dosing when appropriate to reduce radiation dose to as low as reasonably achievable. FINDINGS: Lung bases are clear. Postsurgical changes of cholecystectomy. The liver, stomach, pancreas, spleen, and adrenal glands are within normal limits. The kidneys enhance uniformly. There are 3 nonobstructing right renal calculi measuring up to 3 mm. No right-sided hydronephrosis. No left-sided urinary tract calculi or hydronephrosis.No evidence of renal mass. Urinary bladder is well-distended. The uterus is present. There is a tubular structure filled with simple density fluid within the left adnexa. No adjacent inflammation. Multiple right ovarian cysts are identified, the largest measuring approximately 3.7 cm. No retroperitoneal or mesenteric lymphadenopathy. Abdominal aorta is non-aneurysmal. No small bowel obstruction. No overt colonic mass or pericolonic inflammation. The appendix is within normal limits. No free air or free fluid. The bones of the abdomen and pelvis are unremarkable. IMPRESSION: Nonspecific left-sided hydrosalpinx. Nonobstructing right renal calculi. Report reported and signed by Gregg Porter on 03/10/2022 1536 Normal [facility] Web [employer] Intern Physician Referralon 022 Physician Referral [phone] [id number] #[id number] Normal [facility] US RUQon 02-22-2022 US RUQ HISTORY: Abdominal bloating. Left-sided abdominal pain. Recent pelvic ultrasound with left hydrosalpinx. History of cholecystectomy and . TECHNIQUE: Sonography of the right upper quadrant and right lower quadrant was performed. Images were obtained and stored in a permanent archive. COMPARISON: None. RESULT: Pancreas: Normal sonographic appearance of the visualized portions. Liver: Normal echotexture, echogenicity, surface contour. No focal lesion. Gallbladder: Cholecystectomy. Gallbladder fossa unremarkable. Biliary Ducts: No intrahepatic or extrahepatic bile duct dilation. CBD measures 0.6 cm. Right Kidney: Imaged portions unremarkable. Ascites: None. Other: Limited evaluation of the right lower quadrant is unremarkable. The appendix is not visualized. No secondary findings of appendicitis. IMPRESSION: Unremarkable ultrasound of the right upper quadrant. Cholecystectomy. Appendix not visualized. Report reported and signed by Ole Benjamin on 02/22/2022 0935 Normal [facility] Vital Signs Date Time Vital Sign Value Performing Clinician Facility 07-19-2023 12:23-0500 Body temperature 98.24 [degF] [facility] 07-19-2023 12:23-0500 Diastolic blood pressure 83 mm[Hg] [facility] 07-19-2023 12:23-0500 Heart rate 90 /min [facility] 07-19-2023 12:23-0500 Respiratory rate 18 /min [facility] 07-19-2023 12:23-0500 SaO2% (BldA) [Mass fraction] 98 % [facility] 07-19-2023 12:23-0500 Systolic blood pressure 135 mm[Hg] [facility] 04-27-2022 14:07-0400 Diastolic blood pressure 68 mm[Hg] MD Malu Fisher Work Phone: [facility] 04-27-2022 14:07-0400 Heart rate 90 /min MD Malu Fisher Work Phone: [facility] 04-27-2022 14:07-0400 SaO2% (BldA) [Mass fraction] 96 % MD Malu Fisher Work Phone: [facility] 04-27-2022 14:07-0400 Systolic blood pressure 107 mm[Hg] MD Malu Fisher Work Phone: [facility] 04-27-2022 13:07-0400 Inhaled oxygen flow rate 2 L/min MD Malu Fisher Work Phone: [facility] 04-27-2022 12:49-0400 Body temperature 98.1 [degF] MD Malu Fisher Work Phone: [facility] 04-27-2022 10:35-0400 Respiratory rate 16 /min MD Malu Fisher Work Phone: [facility] 04-27-2022 07:08-0400 Body height 160.02 cm MD Malu Fisher Work Phone: [facility] 04-27-2022 07:08-0400 Body mass index (BMI) [Ratio] 26.5 kg/m2 MD Malu Fisher Work Phone: [facility] 04-27-2022 07:08-0400 Body weight 68.03 kg MD Malu Fisher Work Phone: [facility] Encounters Encounter Date Encounter Type Care Provider Facility Start: 07-19-2023 End: 07-19-2023 [facility] Start: 11-07-2022 End: 11-07-[address] MALU FISHER . Facility:[facility] Start: 08-04-2022 End: 08-05-[address] MALU FISHER . Facility:[facility] Start: 07-20-2022 Encounter for genera l adult medical examination without abnormal findings DR MALU FISHER . [facility] Start: 07-18-2022 End: 07-19-[address] MALU FISHER . Facility:[facility] Start: 07-18-2022 End: 07-19-2022 Encounter for general adult medical examination without abnormal findings DR MALU FISHER . Facility:[facility] Start: 07-13-2022 End: 07-13-[address] MALU FISHER . Facility:[facility] Start: 04-27-2022 End: 04-27-2022 ambulatory Alejandro Alvarez Facility:[facility] Start: 04-27-2022 End: 04-27-2022 Admission to same day surgery center MD Malu Fisher Work Phone: [facility] [place] Start: 04-27-2022 End: 04-27-2022 ambulatory MD Malu Fisher Work Phone: [facility] Work Phone: Start: 04-25-2022 End: 04-25-2022 ambulatory Alejandro Alvarez Facility:[facility] Start: 04-25-2022 End: 04-25-2022 ambulatory MD Malu Fisher Work Phone: [facility] Work Phone: Start: 04-25-2022 End: 04-25-2022 Patient encounter procedure MD Malu Fisher Work Phone: [facility] Start: 02-27-2022 ambulatory Facility: [email or web address] Procedures Date Procedure Procedure Detail Performing Clinician Start: 04-27-2022 Total hysterectomy v ia vaginal approach MD Malu Fisher Work Phone: [facility] Plan of Treatment Date Care Activity Detail Author Start: 04-27-2022 [facility] Start: 04-27-2022 Hospital admission [facility] Start: 04-25-2022 [facility] Patient referral [facility] Work Phone: SARS-CoV-2 (COVID-19 ) N gene [Presence] in Respiratory specimen by JESSICA with probe detection [facility] Work Phone: Payers Date Payer Category Payer Self-pay [id number] 1985 Unknown [id number] 1985 Unknown [id number] 2.16.84 [id number] 1986 Unknown [id number] 2.16.84 [id number] 1986 Unknown [id number] 2.16.84 [id number] 1986 Unknown [id number] 2.16.84 [id number] 1959 Unknown [id number] 1958 Unknown [id number] 1959 Unknown [id number] Unknown [facility] [id number] Unknown [id number] 2.16.8 [id number] Unknown [id number] 2.16.8 [id number] Social History Date Type Detail Facility Tobacco smoking stat [facility] Unknown if ever smoked [facility] Start: 1985 Sex Assigned At Female F [facility] Start: 08-05-2019 End: 04-27-2022 Tobacco smoking status NMIS Smoker (finding) [facility] Tobacco smoking status No Smokin g Status Entered [facility] Sex Assigned At Female [facility] Goals Date Patient Goal Desired Activity /State Functional Status Date Assessment Result Facility 07-19-2023 Functional Status N/A [facility] Discharge instructions 07-19-2023 Note Date & Type Note Facility 07-19-2023 Hospital Discharg e instructions Patient Education 07/19/2023 13:43:08 Wrist Splint or Brace, Adult Wrist Splint or Brace, Adult A wrist splint or brace is a device that prevents your wrist from moving. A splint supports your wrist like a cast, but is more flexible and can be adjusted more easily than a cast. A wrist brace provides support as well but is generally less rigid. A brace is given for edger hand use while a splint is given for short term use. Wrist splints and braces can be removed or loosened. A splint or brace is held in place with an elastic band or straps. The supporting part of a splint or brace does not always completely surround your wrist. You may need a wrist splint or brace if you have hurt your wrist or if you have a condition that causes swelling. The wrist splint or brace may be worn: To support your wrist. To protect your injury. To prevent further injury. To prevent movement. To reduce pain. To help with healing. It is important to follow instructions from your health care provider about when to wear the splint or brace to make sure your wrist heals correctly. What are the risks? The most dangerous risk of wearing a splint or brace is reduced blood flow to your wrist or hand. This can happen if there is a lot of swelling or if the splint or brace is too tight. Reduced blood supply results in a condition called compartment syndrome and can cause permanent damage. Symptoms include: Pain that is getting worse. Tingling and numbness. Changes in skin color, including paleness or a bluish color. Cold fingers. Other problems can include: Skin irritation that can cause itching, rash, skin sores, or skin infection. Wrist stiffness. This can occur if you have worn a splint for a long time. Wrist weakness. How to wear your wrist splint or brace Your wrist splint or brace should be tight enough to support your wrist without blocking your blood supply. How long you need to wear the splint or brace depends on the type of wrist problem you have. Your health care provider will instruct you about how to wear your wrist splint or brace and how long to wear it. Wear the splint or brace as told by your health care provider. Remove it only as told by your health care provider. Loosen the splint or brace if your fingers tingle, become numb, or turn cold and blue. Do not stick anything inside the splint or brace to scratch your skin. Doing that increases your risk of infection. Check the skin under the splint or brace for any redness or blisters every time you take off the splint. Tell your health care provider about any concerns. Keep the splint clean. If the splint or brace is not waterproof: ?Do not let it get wet. ?Cover it with a watertight covering when you take a bath or a shower. General recommendations Do not put pressure on any part of the splint until it is fully hardened. This may take several hours. Follow directions from your health care provider or the splint fire operations forester for cleaning and caring for your splint or brace. It is important to clean it regularly. Make sure it is completely dry before putting in on. Follow these instructions at home: Managing pain, stiffness, and swelling If directed, put ice on the injured area. ?If you a have a removable splint or brace, remove it as told by your health care provider. ?Put ice in a plastic bag. ?Place a towel between your skin and the bag. ?Leave the ice on for 20 minutes, 2 3 times a day. ?Remove the ice if your skin turns bright red. This is very important. If you cannot feel pain, heat, or cold, you have a greater risk of damage to the area. Move your fingers often to avoid stiffness and to lessen swelling. Raise the injured area above the level of your heart while you are sitting or lying down. Activity Do exercises as told by your health care provider. Ask your health care provider when it is safe to drive with a splint or brace on your wrist. Return to your normal activities as told by your health care provider. Ask your health care provider what activities are safe for you. General instructions Do not use the injured hand to do heavy work, such as lifting, pulling, or pushing. Do not use any products that contain nicotine or tobacco, such as cigarettes, e-cigarettes, and chewing tobacco. These can delay bone healing. If you need help quitting, ask your health care provider. Take ggxp-gli-zxzbfom and prescription medicines only as told by your health care provider. Keep all follow-up visits. This is important. Contact a health care provider if: You have wrist pain or swelling that does not go away. The skin around or under your splint becomes red, itchy, or moist. You have chills or a fever. Your splint or brace feels too tight or too loose. Your splint or brace gets damaged. Get help right away if: You have pain that is getting worse. You have tingling and numbness. You have changes in skin color, including paleness or a bluish color. Your fingers are cold. Summary A wrist splint or brace is a flexible device that supports your wrist and prevents it from moving. Follow instructions from your health care provider about when to wear the splint or brace to make sure your wrist heals correctly. Manage pain, stiffness, and swelling by using ice, moving your fingers often, and raising your wrist above the level of your heart. The main risk of wearing a splint or brace is reduced blood supply to your wrist or hand. If your fingers tingle, become numb, or turn cold and blue, loosen the splint or brace and get help right away. This information is not intended to replace advice given to you by your health care provider. Make sure you discuss any questions you have with your health care provider. Document Revised: 10/14/2020 Document Reviewed: 10/14/2020 [employer] Patient Education 2022 [employer]. 07/19/2023 13:43:08 Wrist Sprain, Adult Wrist Sprain, Adult A wrist sprain is a stretch or tear in the strong tissues that connect the wrist bones to each other. These strong tissues are called ligaments. There are three types of wrist sprains: Grade 1. The ligament is stretched more than normal. There may be a minor amount of wrist pain. Grade 2. The ligament is partially torn. You may be able to move your wrist, but not very much. There may be a moderate amount of wrist pain. Grade 3. The ligament or ligaments are completely torn. You may find it difficult to move your wrist even a little. There may be a significant amount of wrist pain. What are the causes? This condition may be caused by using the wrist too much during sports, exercise, or work. It can also happen due to a fall or during an accident. What increases the risk? You are more likely to develop this condition if: You had a previous wrist or arm injury. You have poor wrist strength and flexibility. You play contact sports, such as football or soccer. You participate in sports that may result in a fall, such as skateboarding, biking, skiing, or snowboarding. You do not exercise regularly. You use exercise equipment that does not fit well. What are the signs or symptoms? Symptoms of this condition include: Pain in the wrist, arm, or hand. Swelling or bruised skin near the wrist, hand, or arm. The skin may look yellow or blue. Stiffness or trouble moving the hand. Hearing a noise, like a pop or a snap, at the time of injury, or feeling a tear at the time of the injury. A warm feeling in the skin around the wrist. How is this diagnosed? This condition is diagnosed with a physical exam. Sometimes an X-ray is taken to make sure a bone did not break. You may also have an MRI of your wrist to check for torn ligaments. How is this treated? This condition is treated by resting and applying ice to your wrist. Additional treatment may include: Taking medicine for pain and inflammation. Wearing a splint, brace, or cast for a short period of time to keep your wrist from moving (immobilized). Doing exercises to strengthen and stretch your wrist. Having surgery. This may be done if the ligament is completely torn. Follow these instructions at home: If you have a splint or brace: Wear the splint or brace as told by your health care provider. Remove it only as told by your health care provider. Loosen it if your fingers tingle, become numb, or turn cold and blue. Keep it clean. If the splint or brace is not waterproof: ?Do not let it get wet. ?Cover it with a watertight covering when you take a bath or a shower. If you have a cast: Do not put pressure on any part of the cast until it is fully hardened. This may take several hours. Do not stick anything inside the cast to scratch your skin. Doing that increases your risk of infection. Check the skin around the cast every day. Tell your health care provider about any concerns. You may put lotion on dry skin around the edges of the cast. Do not put lotion on the skin underneath the cast. Keep it clean. If the cast is not waterproof: ?Do not let it get wet. ?Cover it with a watertight covering when you take a bath or shower. Managing pain, stiffness, and swelling If directed, put ice on the injured area. To do this: ?If you have a removable splint or brace, remove it as told by your health care provider. ?Put ice in a plastic bag. ?Place a towel between your skin and the bag or between the splint or cast and the bag. ?Leave the ice on for 20 minutes, 2 3 times a day. ?Remove the ice if your skin turns bright red. This is very important. If you cannot feel pain, heat, or cold, you have a greater risk of damage to the area. Move your fingers often to reduce stiffness and swelling. Raise (elevate) the injured area above the level of your heart while you are sitting or lying down. Activity Rest your wrist as told by your health care provider. Do not do things that cause pain. Ask your health care provider when it is safe to drive if you have a splint, brace, or cast on your wrist. Do exercises as told by your health care provider. Return to your normal activities as told by your health care provider. Ask your health care provider what activities are safe for you. General instructions Take ermd-afd-qbuyrvy and prescription medicines only as told by your health care provider. Do not use any products that contain nicotine or tobacco, such as cigarettes, e-cigarettes, and chewing tobacco. These can delay healing. If you need help quitting, ask your health care provider. Keep all follow-up visits. This is important. Contact a health care provider if: Your pain, bruising, or swelling gets worse. Your skin becomes red, gets a rash, or has open sores. Your pain does not get better or it gets worse. Get help right away if: You have a new or sudden sharp pain in the hand, arm, or wrist. You have tingling or numbness in your hand. Your fingers turn white, very red, or cold and blue. You cannot move your fingers. Summary A wrist sprain is damage to ligaments in your wrist. Wrist sprains can range from mild to severe. Return to your normal activities as told by your health care provider. Ask your health care provider what activities are safe for you. You may need to wear a splint, brace, or cast for a short period of time. This information is not intended to replace advice given to you by your health care provider. Make sure you discuss any questions you have with your health care provider. Document Revised: 10/18/2020 Document Reviewed: 10/18/2020 [employer] Patient Education 2022 [employer]. 07/19/2023 13:43:08 Shoulder Sprain Shoulder Sprain A shoulder sprain is a partial or complete tear in one of the tough, fiber-like tissues (ligaments) in the shoulder. The ligaments in the shoulder help to hold the shoulder in place. What are the causes? This condition may be caused by: A fall. A hit to the shoulder. A twist of the arm. What increases the risk? You are more likely to develop this condition if you: Play sports. Have problems with balance or coordination. What are the signs or symptoms? Symptoms of this condition include: Pain when moving the shoulder. Limited ability to move the shoulder. Swelling and tenderness on top of the shoulder. Warmth in the shoulder. A change in the shape of the shoulder. Redness or bruising on the shoulder. How is this diagnosed? This condition is diagnosed with: A physical exam. During the exam, you may be asked to do simple exercises with your shoulder. Imaging tests such as X-rays, MRI, or a CT scan. These tests can show how severe the sprain is. How is this treated? This condition may be treated with: Rest. Pain medicine. Ice. A sling or brace. This is used to keep the arm still while the shoulder is healing. Physical therapy or rehabilitation exercises. These help to improve the range of motion and strength of the shoulder. Surgery (rare). Surgery may be needed if the sprain caused a joint to become unstable. Surgery may also be needed to reduce pain. Some people may develop ongoing shoulder pain or lose some range of motion in the shoulder. However, most people do not develop long-term problems. Follow these instructions at home: If you have a sling or brace: Wear the sling or brace as told by your health care provider. Remove it only as told by your health care provider. Loosen the sling or brace if your fingers tingle, become numb, or turn cold and blue. Keep the sling or brace clean. If the sling or brace is not waterproof: ?Do not let it get wet. ?Cover it with a watertight covering when you take a bath or shower. Activity Rest your shoulder. Move your arm only as much as told by your health care provider, but move your hand and fingers often to prevent stiffness and swelling. Return to your normal activities as told by your health care provider. Ask your health care provider what activities are safe for you. Ask your health care provider when it is safe for you to drive if you have a sling or brace on your shoulder. If you were shown how to do any exercises, do them as told by your health care provider. General instructions If directed, put ice on the affected area. ?Put ice in a plastic bag. ?Place a towel between your skin and the bag. ?Leave the ice on for 20 minutes, 2 3 times a day. Take wrac-vov-gxrkufc and prescription medicines only as told by your health care provider. Do not use any products that contain nicotine or tobacco, such as cigarettes, e-cigarettes, and chewing tobacco. These can delay healing. If you need help quitting, ask your health care provider. Keep all follow-up visits as told by your health care provider. This is important. Contact a health care provider if: Your pain gets worse. Your pain is not relieved with medicines. You have increased redness or swelling. Get help right away if: You have a fever. You cannot move your arm or shoulder. You develop severe numbness or tingling in your arm, hand, or fingers. Your arm, hand, or fingers feel cold and turn blue, white, or pittman. Summary A shoulder sprain is a partial or complete tear in one of the tough, fiber-like tissues (ligaments) in the shoulder. This condition may be caused by a fall, a hit to the shoulder, or a twist of the arm. Treatment usually includes rest, ice, and pain medicine as needed. If you have a sling or brace, wear it as told by your health care provider. Remove it only as told by your health care provider. This information is not intended to replace advice given to you by your health care provider. Make sure you discuss any questions you have with your health care provider. Document Revised: 02/27/2022 Document Reviewed: 03/01/2022 [employer] Patient Education 2022 [employer]. Follow Up Care 07/19/2023 12:15:24 With:Hari Martell Address: [address] [place] [address]- Business (1) When:07/22/2023 13:36:53 Comments:If the pain does not get better in the next few days follow-up with Dr. Martell. If the pain gets worse or return to the emergency room. With:Malu Fisher Address: [address] [place] [id number] Business (1) When:Within 3 Day(s) [facility] Evaluation + Plan note 07-19-2023 Note Date & Type Note Facility 07-19-2023 Evaluation + Plan note Extrac shira from: Title:ED Note Author:Gaudencio Banuelos, Halley Gonzalez te:07/19/23 1. Right wrist sprain (S63.5 01A: Unspecified sprain of right wrist, initial encounter) 2. Sprain of right shoulder (S43.401A: Unspecified sprain of right shoulder joint, initial encounter) Orders: ibuprofen, 600 mg = 1 tab(s), Tab, Oral, Once, Stop date 07/19/23 13:27:00 EST, STAT, Start date 07/19/23 13:27:00 EST, 07/19/23 13:27:00 EST Splint Application Wrist XR Shoulder Complete Right XR Wrist 3+ Views Right [facility] Evaluation note Note Date & Type Note Facility Evaluation note No assessment information availa [facility] Work Phone: Hospital course Narrative Note Date & Type Note Facility Hospital course Narrative No data available for this section [facility] Hospital Discharge instructions Note Date & Type Note Facility Hospital Discharge instructions Additional Instructions DISCHARGE INSTRUCTIONS FOR HYSTERECTOMY (TV[facility], LAVH, TLH) -During your time at home until your first office appointment we recommend that you assume the same type of activities that you have been doing while in the hospital. You may ride in the car unless otherwise specifically told not to. Unless specifically otherwise stated, generally you may drive the car when you feel strong enough to make emergency manuevers as needed. -You may walk up and down stairs. At first take one step at a time -- one step - stop, one step - stop, one step - stop. -You may do light housework, such as dusting, dishes, and cooking. -From your first office visit until the six week postoperative examination we recommend that you do not do any heavy lifting or straining, that you do not do any vacuuming, mopping, or sweeping. -We advise that you do not lift any heavy grocery bags from the cart to the car or from the car home. -We recommend that you do not do any yard work such as shoveling of snow, raking of leaves, cutting grass or gardening. -We recommend that you do not make beds or lift mattresses to change fitted sheets. -Light bleeding is normal for the first 4 weeks (i.e. changing panty liner 3 - 4 times a day.) Call me or go to the Emergency Room for heavy bleeding (soaking a maxipad every hour for 4 hours.) -Call the office or go to the Emergency Room if unable to reach me for fever, chills, worsening pain, persistent nausea/vomiting. -Call the office or go to the Emergency Room for shortness of breath, pain in your calfs or unusual swelling in your legs. -Showers are allowed until the vaginal drainage stops, then tub baths are generally acceptable unless otherwise specifically denied. -You will be advised at your first office visit when you may resume intercourse. This will be dependent upon the type of surgery performed. -We recommend that you use home remedies such as aspirin, Tylenol, Motrin for pain, Milk of Magnesia for laxative. If these preparations do not take care of your problem we want to be called and notified of your distress. -Please get prescriptions filled upon leaving the hospital and follow directions as outlined. Please note the refill limitations on the prescription. -If you have any specific questions not covered by these instructions please feel free to contact myself or one of the nurses who will answer your questions with my recommendations. -These instructions are intended to be a guideline for your postoperative care and recovery and are by no means intended to be totally complete. FOLLOW UP -[Please call the office at ([phone]) to make follow appointment before leaving the hospital]. -[4 Weeks] [ ] [facility] Work Phone: Progress note Note Date & Type Note Facility Progress note No data available for this section [facility] Assessments No Assessments Information Available Summary Purpose Family History Relationship Condition Age at Onset Recorded Date/T zeeshan grandparent Myocardial infarction Unknown Relationship Condition Age at Onset Recorded Date/T zeeshan grandparent Myocardial infarction Unknown Not Specified Diabetes mellitus Unknown grandparent Chronic obstructive pulmonary disease Unk nown Malignant neoplasm of lung Unknown Pulmonary emphysema Unknown Advance Directives Advance Directive Response Recorded Date/ Time Advance Directives No June 29, 2017 10:48am Chief Complaint and Reason for Visit Chief Complaint Menorrhagia, Pelvic Pain, Hydrosalpinx Chief Complaint Menorrhagia, Pelvic Pain, Hydrosalpinx Menorrhagia, Pelvic Pain, Hydrosalpinx Additional Source Comments INFORMATION SOURCE (unrecogn ized section and content) DATE CREATED AUTHOR 03/25/2022 [facility] dical Specialist DATE CREATED AUTHOR AUTHOR'S ORGANIZ ATION 03/25/2022 [facility] DATE CREATED AUTHOR AUTHOR'S ORGANIZ ATION 05/02/2022 [facility] DATE CREATED AUTHOR AUTHOR'S ORGANIZ ATION 11/08/2022 [facility] Care Teams (unrecognized sec tion and content) Personnel Name: Malu Fisher MD Address: Address: [address] [place] [address] Team Status: Inactive Member Role Status Dates Malu Fisher MD Primary Care Provider Active Alejandro Alvarez DO Attending Provider Active Team Status: Active Member Role Status Dates Malu Fisher MD Primary Care Provider Active Goals (unrecognized section and content) Goals may be documented in a n alternate section No data available for this section FOR RECORDS PERTAINING TO PATIENTS WHO ARE OR HAVE BEEN ENROLLED IN A CHEMICAL DEPENDENCY/SUBSTANCEABUSE PROGRAM, SOME INFORMATION MAY BE OMITTED. This clinical summary was aggregated from multiple sources. Caution should be exercised in using it in the provision of clinical care. This summary normalizes information from multiple sources, and as a consequence, information in this document may materially change the coding, format and clinical context of patient data. In addition, data may be omitted in some cases. CLINICAL DECISIONS SHOULD BE BASED ON THE PRIMARY CLINICAL RECORDS. [employer] provides no warranty or guarantee of the accuracy or completeness of information in this document.
[2023-09-03 13:09] LABS: Basophils Percent Auto 0.5 % (0.2-2.0); Eosinophils Absolute Auto 0.1 10^3/uL (0.0-0.7); Eosinophils Percent Auto 1.1 % (0.9-7.0); Hematocrit 42.4 % (36.0-48.0); Hemoglobin 13.7 g/dL (12.0-16.0); Immature Granulocytes Abs Auto 0.01 10^3/uL (0.00-0.03); Immature Granulocytes Pct Auto 0.2 % (0.0-0.5); Lymphocytes Absolute Auto 1.5 10^3/uL (1.2-3.8); Lymphocytes Percent Auto 23.3 % (20.5-60.0); Mean Corpuscular HGB Conc 32.3 g/dL (29.9-35.2); Mean Corpuscular Hemoglobin 29.7 pg (26.7-34.0); Mean Platelet Volume 10.4 fL (9.5-13.5); Monocytes Absolute Auto 0.5 10^3/uL (0.3-0.8); Monocytes Percent Auto 7.5 % (1.7-12.0); Neutrophils Absolute Auto 4.4 10^3/uL (1.4-6.5); Neutrophils Percent Auto 67.4 % (43.0-75.0); Platelet Count 307 10^3/uL (150-450); Red Blood Count 4.61 10^6/uL (4.20-5.40); Red Cell Distribution Width 12.3 % (11.0-15.0); White Blood Count 6.4 10^3/uL (4.0-11.0)
[2023-09-03 13:17] LABS: Erythrocyte Sedimentation Rate 17 mm/hr (<=20)
[2023-09-03 13:31] LABS: Alanine Aminotransferase 21 U/L (14-59); Albumin Level 3.5 g/dL (3.4-5.0); Alkaline Phosphatase 94 U/L (46-116); Amylase 38 U/L (25-115); Anion Gap 12.4; Aspartate Amino Transferase 14 U/L (15-37); BUN Creatinine Ratio 8.5; Bilirubin Total 0.3 mg/dL (0.2-1.0); C Reactive Protein <0.50 mg/dL (<=0.50); Calcium 8.7 mg/dL (8.5-10.1); Carbon Dioxide 29.2 mmol/L (21.0-32.0); Chloride 102 mmol/L (98-107); Estimated GFR (African America >60 (>=60); Estimated GFR (Non-African Ame >60 (>=60); Globulin 3.5 g/dL; Glucose 110 mg/dL (74-106); Potassium 3.6 mmol/L (3.5-5.1); Sodium 140 mmol/L (136-145); Thyroid Stimulating Hormone 1.895 uIU/mL (0.358-3.740); Uric Acid 3.9 mg/dL (2.6-6.0)
[2023-09-04 04:07] LABS: Cancer Antigen (CA) 125 6.9 U/mL (0.0-38.1)
[2023-09-04 06:11] LABS: Antistreptolysin O Ab 28.1 IU/mL (0.0-200.0); Rheumatoid Factor (RF) <10.0 IU/mL (<14.0)
[2023-09-04 08:11] LABS: CEA 1.2 ng/mL (0.0-4.7)
[2023-09-04 13:08] LABS: Antinuclear Antibodies, IFA Negative (.)
[2023-09-09 09:09] LABS: Immunoglobulin A, Qn, Serum 155 mg/dL (87-352); Immunoglobulin E, Total 78 IU/mL (6-495); Immunoglobulin G, Qn, Serum 783 mg/dL (586-1602); Immunoglobulin M, Qn, Serum 104 mg/dL (26-217)
== END 2023-09-03 12:32 | disposition home or self-care (01) ==
LOC: LAB 12:32
PROVIDERS: PCP Family Medicine; Visit Provider Family Medicine
DX: R19.00 Intra-abdominal and pelvic swelling, mass and lump, unspecified site (principal)
CPT/HCPCS: 36415; 80053; 82150; 82378; 82784; 82785; 83690; 84436; 84443; 84481; 84550; 85025; 85652; 86038; 86060; 86140; 86304; 86431

== ENCOUNTER 2024-12-19 11:39 | Outpatient (OUT) | payer OTHER, SELFPAY ==
--- OUTSIDE RECORDS SUMMARY | 2024-02-05 11:01 | XMS_ITS ---
Author Organization [facility] in [place] Address [address] [place] [address] Care Team Providers Care User Experience Analyst Name Role Phone Luke Fisher Primary Care Provider [phone] pelvis Encounters Encounter Location Date Provider Diagnosis [facility] [address] [facility] [place] [address] 02/05/2024 Luke Fisher Abdominal mass R19. 00 Assessments Encounter Date Diagnosis (ICD Code) Assessment Notes Treatment Notes Treatment Clinical Notes Section Notes 02/05/2024 Abdominal mass (ICD-10 - R19.00) Plan Of Treatment Pending Test Test Name Order Date CT PELVIS W CON 02/05/2024 Progress Notes * BOO Talia ADOB: [birth year] (38 yo F)Acc No.[id number]:02/05/2024 Patient: Talia ECKERT :1985 A ge:38 Y S ex:Female Address:[address] [place] [address], [id number] Subjective: * Chief Complaints: * C t pelvis * Medical History: * Surgical History: * Hospitalization/Major Diagno stic Procedure: * Medications: Objective: * Vitals: * Physical Examination: Assessment: * Assessment: 1. A bdominal mass - R19.00 (Primary) Plan: * Treatment: * Procedure Codes: * true * Date: Generated for Printi ng/Faxing/eTransmitting on: 0 12/19/2024 11:47 AM EDT
--- OUTSIDE RECORDS SUMMARY | 2024-03-26 11:45 | XMS_ITS ---
Author Organization [facility] in [place] Address [address] [place] [address] Care Team Providers Care Belt Knife Feeder Name Role Phone Luke Fisher Primary Care Provider Allergies Allergen (clinical drug ingredient) Drug/Non Drug Allergy documented on EMR Reaction Allergy Type Onset Date Status Substance with sulfonamide structure and antibacterial mechanism of action (substance) Sulfa Antibiotics hives Drug Allergy Active ciprofloxacin Ciprofloxacin hives Drug Allergy Active REASON FOR VISIT Ear Pain, Stuffy Nose, Runny Nose, Congestion, Sore Throat, Coughing, Symptoms started Sunday night, Home Covid Test (-) Medications Medication SIG (Take, Route, Frequency, Duration) Notes Start Date End Date Status Diflucan 100 MG 1 tablet Orally arturo y for 10 days 03/26/2024 Active Escitalopram Oxalate 20 MG 1/2 tab daily for 90 days Active Protonix 40 MG 1 tablet Orally Ever y Evening for 30 day(s) 09/03/2023 Active Valtrex 500 MG 1 tablet Orally Once a day Active Amoxicillin-Pot Clavulanate 875-125 MG 1 tablet Orally every 12 hrs for 10 days 03/26/2024 Active Social History Tobacco Use: Social History Observation Description Date Details (start date - stop date) Never Smoker NA - NA Tobacco Use/Smoking Question Answer Notes Patient is a nonsmoker AUDIT-C (Standard) Question Answer Notes Did you have a drink containing alcohol in the p ast year? No Points 0 Interpretation Negative Vital Signs Weight 160 lbs 03/26/2024 Height 63 in 03/26/2024 Blood pressure systolic 120 mm Hg 10/02/20 24 Blood pressure diastolic 80 mm Hg 024 BMI 28.34 kg/m2 03/26/2024 Encounters Encounter Location Date Provider Diagnosis [facility] [address] [place] [address] 03/26/2024 Luke Fisher Acute non-recurrent sinusitis, unspecified location J01.90 and Nasal congestion R09.81 Assessments Encounter Date Diagnosis (ICD Code) Assessment Notes Treatment Notes Treatment Clinical Notes Section Notes 03/26/2024 Acute non-recurrent sinusitis, unspecified location (ICD-10 - J01.90) Rest and drink more liquids, especially water. You may use a humidifier or vaporizer to help keep the drainage moist. Ejgt-btq-mknhljg Nasal Saline may help the stuffy and runny nose. Use Ibuprofen and or Tylenol as needed for fever, chills, body aches or pain. Children 5 years old should not be given morc-bvh-iogbarw cough and cold medications such as guaifenesin and dextromethorphan. If you're over age 5, you may try abrb-srh-fsaatak cold medications such as guaifenesin and dextromethorphan, or multi-symptom cold reliever such as Dayquil to help reduce the symptoms. Antibiotics have been prescribed. You should take these until completed and follow the directions. Antibiotics can sometimes cause upset stomach, and in rare cases, serious allergic reactions or serious gastrointestinal problems. If you start having severe abdominal pain, severe vomiting, or bloody diarrhea, you should be reevaluated by your physician or urgent care immediately. Follow up with your Primary Care Provider or return to clinic if symptoms do not improve within 3-5 days 03/26/2024 Nasal congestion (ICD-10 - R09.81) Plan Of Treatment Medication Medication Name Sig Start Date Stop Date Notes Diflucan 100 MG 1 tablet Orally arturo y for 10 days 03/26/2024 Valtrex 500 MG 1 tablet Orally Once a day Amoxicillin-Pot Clavulanate 875-125 MG 1 tablet Orally every 12 hrs for 10 days 03/26/2024 Treatment Notes Assessment Notes Acute non-recurrent sinusiti s, unspecified location Rest and drink more liquids, especially water. You may use a humidifier or vaporizer to help keep the drainage moist. Ygbo-oxn-jpczqhv Nasal Saline may help the stuffy and runny nose. Use Ibuprofen and or Tylenol as needed for fever, chills, body aches or pain. Children 5 years old should not be given bawm-ccy-zuknulz cough and cold medications such as guaifenesin and dextromethorphan. If you're over age 5, you may try sjwr-ncv-betpwco cold medications such as guaifenesin and dextromethorphan, or multi-symptom cold reliever such as Dayquil to help reduce the symptoms. Antibiotics have been prescribed. You should take these until completed and follow the directions. Antibiotics can sometimes cause upset stomach, and in rare cases, serious allergic reactions or serious gastrointestinal problems. If you start having severe abdominal pain, severe vomiting, or bloody diarrhea, you should be reevaluated by your physician or urgent care immediately. Follow up with your Primary Care Provider or return to clinic if symptoms do not improve within 3-5 days Next Appt Details Follow Up: 3-5 days if not i mproving, Reason: Progress Notes * Jay RIVERAley ADOB: [birth year] (38 yo F)Acc No.[id number]:03/26/2024 Progress Note Patient: Talia ECKERT A Provider: Jose Fisher ([facility])MD :1985 A ge:38 Y S ex:Female Date:03/26/2024 Address:[address] [place], [place] [id number] Check In:03:40 PM ESTCheck O ut:04:47 PM EST Subjective: * Chief Complaints: * 1 . Ear Pain, Stuffy Nose, Runny Nose, Congestion, Sore Throat, Coughing. 2. Symptoms started Sunday night. 3. Home Covid Test (-). * HPI: S inusitis: The patient complains of symptoms of sinus infection. The symptoms have been present for 1-2 days. The symptoms are moderate. Symptomatic treatment has included OTC medication. Associated symptoms include headache, facial pain, runny nose, nasal congestion. * ROS: S kin: Rash d enies. E NT: Comments S HPI for details. C ardiovascular: Edema d enies. P alpitations d enies. ? R espiratory: Chest pain d enies. C ough d enies. W heezing?denies. G astrointestinal: Abdominal pain d enies. N ausea d enies. V omiting d enies. * Active Problem List Z00.00 Well adult Modified On:06/14/2023W/U Status:confirmed R19.00 Abdominal mass Modified On:09/03/2023W/U Status:confirmed * Medical History: O kirstie weight, Acute COVID-19, Chronic sinusitis. * Surgical History: h ysterectomy 04/2022, Gall Bladder , . * Hospitalization/Major Diagno stic Procedure: p aresthesias 2019, dehydration 2019, hypolexmia 2018. * Family History: F ather: unknown. M other: alive, diagnosed with Diabetes mellitus without mention of complication, type II or unspecified type, not stated as uncontrolled. B rother(s): unknown. S ister(s): unknown. * Social History: T obacco Use: T obacco Use/Smoking P atient is a n onsmoker D rug/Alcohol: A DIANA-C (Standard) D id you have a drink containing alcohol in the past year? N o P oints 0 I nterpretation N egative * Medications: T aking Escitalopram Oxalate 20 MG Tablet 1/2 tab daily , Taking Protonix(Pantoprazole Sodium) 40 MG Tablet Delayed Release 1 tablet Orally Every Evening , Taking Valtrex(valACYclovir HCl) 500 MG Tablet 1 tablet Orally Once a day , Medication List reviewed and reconciled with the patient * Allergies: S ulfa Antibiotics: hives - Allergy - Criticality High, Ciprofloxacin: hives - Allergy - Criticality High. Objective: * Vitals: W t:160lbs, Ht: 63 in, BP:120/80mm Hg, BMI:28.34Index, Ht-cm: 160.02 cm, Wt-k.57 kg. * Examination: G eneral Examination: GENERAL APPEARANCE: in no acute distress, well developed, well nourished. ENT: ear and nose external appearance normal, tympanic membranes clear bilaterally, facial tenderness to palpation over sinuses. EYES: pupils equal, round, reactive to light and accomodations. ORAL CAVITY: mucosa moist. NECK: n boo supple, full range of motion, no cervical lymphadenopathy. LUNGS: c lear to auscultation bilaterally. CARDIO: no murmurs, regular rate and rhythm, S1, S2 normal. ABDOMEN: soft, nontender , not distended, bowel sounds are active. SKIN: no suspicious lesions, warm and dry. EXTREMITIES: no clubbing, cyanosis, or edema. NEUROLOGIC: nonfocal, motor strength of upper/lower extremities intact , sensory exam intact. Assessment: * Assessment: 1. A cute non-recurrent sinusitis, unspecified location - J01.90 (Primary) 2 . N aleks congestion - R09.81 Plan: * Treatment: * Follow Up: 3 -5 days if not improving * * Sign off status: Completed Visit Status: C HK (Check Out) true * Provider: Jose Fisher ([facility])MD Date: Generated for Printi ng/Falaureng/eTransmitting on: 0 12/19/2024 11:46 AM EDT History and Physical Notes * Examination Category Sub-Category Detail Notes Category Not es General Examination GENERAL APPEARANCE: in no ac yanira distress, well developed, well nourished ENT: ear and nose externa l appearance normal, tympanic membranes clear bilaterally, facial tenderness to palpation over sinuses EYES: pupils equal, round, reactive to light and accomodations NECK: neck supple, full ra nge of motion, no cervical lymphadenopathy CARDIO: no murmurs, regular rate and rhythm, S1, S2 normal LUNGS: clear to auscultatio n bilaterally ABDOMEN: soft, nontender , no t distended, bowel sounds are active NEUROLOGIC: nonfocal, motor stre ngth of upper/lower extremities intact , sensory exam intact SKIN: no suspicious lesion s, warm and dry EXTREMITIES: no clubbing, cyanosi s, or edema ORAL CAVITY: mucosa moist
--- OUTSIDE RECORDS SUMMARY | 2024-12-19 06:45 | XMS_ITS ---
Author Organization [facility] in [place] Address [address] [place] [address] Care Team Providers Care Neuroscience Director Na Name Role Phone Luke Fisher Primary Care Provider [phone] Allergies Allergen (clinical drug ingredient) Drug/Non Drug Allergy documented on EMR Reaction Allergy Type Onset Date Status Substance with sulfonamide structure and antibacterial mechanism of action (substance) Sulfa Antibiotics hives Drug Allergy Active ciprofloxacin Ciprofloxacin hives Drug Allergy Active Results Component Value Reference Range Notes GLUCOSE - IN OFFICE (Not yet reviewed by provider) Interpretation: Performing Lab: Notes/Report: Glucose 88 74 - 106 MG/DL REASON FOR VISIT Presents to office alone for c/o unable to lose weight, hungry all the time, thirsty all the time, excessive urination, tired all the time., Having trouble focusing, Also itching and does have fine red bumps. Mostly on legs but does have on arms, tingling to hands and feet, Excessive body odor and nothing helps Medications Medication SIG (Take, Route, Frequency, Duration) Notes Start Date End Date Status Valtrex 500 MG 1 tablet Orally Once a day Active Escitalopram Oxalate 20 MG 1/2 tab daily for 90 days Active Social History Tobacco Use: Social History Observation Description Date Details (start date - stop date) Never Smoker NA - NA Tobacco Use/Smoking Question Answer Notes Patient is a nonsmoker AUDIT-C (Standard) Question Answer Notes Did you have a drink containing alcohol in the p ast year? No Points 0 Interpretation Negative Problems Problem Type SNOMED Code ICD Code Onset Dates Problem Status W/U Status Risk Notes Problem Excessive thirst (R63.1) Active confirmed Vital Signs Weight 158 lbs 12/19/2024 Height 63 in 12/19/2024 Blood pressure systolic 134 mm Hg 12/20/19 25 Blood pressure diastolic 82 mm Hg 025 BMI 27.99 kg/m2 12/19/2024 Encounters Encounter Location Date Provider Diagnosis [facility] [address] [place] [address] 12/19/2024 Luke Hoy Excessive thirst R63 .1 ; Well adult Z00.00 and Abdominal mass R19.00 Assessments Encounter Date Diagnosis (ICD Code) Assessment Notes Treatment Notes Treatment Clinical Notes Section Notes 12/19/2024 Excessive thirst (ICD-10 - R63.1) 12/19/2024 Well adult (ICD-10 - Z00.00) 12/19/2024 Abdominal mass (ICD-10 - R19.00) Plan Of Treatment Pending Test Test Name Order Date GLUCOSE - IN OFFICE 12/19/2024 HEMOGLOBIN A1C (GLYCO) 12/19/2024 IRON, TOTAL 12/19/2024 LIPID PANEL (CHOL/TRIG/HDL/LDL) 12/20/19 Insulin Level 12/19/2024 AMYLASE 12/19/2024 LIPASE 12/19/2024 CT ABD and PELV W CON 12/19/2024 XR ABD FLAT UP_PA CH 12/19/2024 THYROID PANEL (T4/TSH/FREE T3) CMP (COMP MET BARNES) w/eGFR CKD-EPI 2024 CBC WITH DIFF 12/19/2024 Progress Notes * Talia RIVERA ADOB: [birth year] (39 yo F)Acc No.[id number]:12/19/2024 UNLOCKED PROGRESS NOTE Progress Note Patient: Talia ECKERT Provider: Jose Fisher ([facility])MD :1985 A ge:39 Y S ex:Female Date:12/19/2024 Address:[address] [place], [place] [id number] Check In:10:38 AM ESTCheck O ut:11:34 AM EST Subjective: * Chief Complaints: * 1 . Presents to office alone for c/o unable to lose weight, hungry all the time, thirsty all the time, excessive urination, tired all the time.. 2. Having trouble focusing. 3. Also itching and does have fine red bumps. Mostly on legs but does have on arms. 4. Tingling to hands and feet. 5. Excessive body odor and nothing helps. * HPI: G eneral: Not sure abotu FH - thyroid or DM _but trobule focusing and fatigue unable to maintain a good weight - some gibbs - but assoc with eating - saw GI - had EGD a-- all good. * ROS: E ENT: hearing changes d enies. v isual changes d enies.?non-healing mouth sores d enies. s wollen glands or neck lumps d enies. h oarseness d enies. s ore throat d enies. d ifficulty swallowing d enies. n ose bleeds d enies. n aleks congestion d enies. e ar ache d enies. e ar discharge?denies. r inging in ears d enies. l ight sensitivity d enies. e ye pain d enies. b lurring d enies. e ye irritation d enies. d ouble vision d enies.?vision loss d enies. G eneral/Constitutional: Sweats: D enies. F atigue d enies. S leep problems d enies. A norexia d enies. M alaise d enies. W eight loss d enies.?Fatigue or Weakness d enies. F ever or Chills d enies. C ardiovascular: Shortness of Breath w/lying flat d enies. L ightheadedness/dizziness d enies. C hest tightness/ heavy pressure d enies. S welling of legs, ankles, or feet d enies. W aking up with shortness of breath d enies. C hest pain denies. P alpitations d enies. W eight gain d enies. R espiratory: Chronic or frequent cough d enies. C oughing up blood?denies. D ifficulty breathing d enies. P roductive cough d enies. S noring?denies. S hortness of breath that awakens from sleep (PND) d enies. C hest pain d enies. S putum production d enies. W heezing d enies. M usculoskeletal: Joint pain d enies. J oint Fluid d enies. B ack pain d enies. K nee pain d enies. N boo pain d enies. J oint Stiffness d enies. M uscle cramps d enies. W eakness of muscles d enies. A rthritis d enies. M uscle aches d enies. P ain in shoulder(s) d enies. S wollen joints d enies. * Medical History: O kirstie weight, Acute [...] MG Tablet 1/2 tab daily , Taking Valtrex(valACYclovir HCl) 500 MG Tablet 1 tablet Orally Once a day , Discontinued Amoxicillin-Pot Clavulanate 875-125 MG Tablet 1 tablet Orally every 12 hrs , Discontinued Diflucan(Fluconazole) 100 MG Tablet 1 tablet Orally daily , Discontinued Protonix(Pantoprazole Sodium) 40 MG Tablet Delayed Release 1 tablet Orally Every Evening , Medication List reviewed and reconciled with the patient * Allergies: S ulfa Antibiotics: hives - Allergy - Criticality High, Ciprofloxacin: hives - Allergy - Criticality High. Objective: * Vitals: W t:158lbs, Ht: 63 in, BP:134/82mm Hg, BMI:27.99Index, Ht-cm: 160.02 cm, Wt-k.67 kg. * Examination: P hysical Exam: GENERAL: w ell developed, well nourished, in no acute distress. HEAD: n ormocephalic/atraumatic. EYES: p upils equal, round and reactive to light, conjunctivae and sclerae normal. EARS: n o deformity or lesion of external ear, canals and TM appear normal bilaterally, TM's intact, not inflamed with normal light reflex, hearing grossly normal to conversational speech. NOSE: n o deformity, discharge, inflammation, or lesions.? MOUTH: m ucous membranes moist, normal oropharynx and posterior pharynx without lesions or exudates, tongue normal, dentition normal. NECK: n boo supple, no masses or palpable cervical nodes, trachea midline, thyroid without nodules, masses, tenderness, or enlargement. CHEST: n o chest wall deformity, no chest wall tenderness.? LUNGS: n ormal respiratory effort and clear to auscultation, no wheezes, rales, or rhonchi, good air exchange. CARDIO: r egular rate and rhythm, normal S1 and S2, nor murmur, rub, or gallop. PULSES: n ormal capillary refill. ABDOMEN: s ome abd disention - no masses neded - . ? MUSCULOSKELETAL: n o deformity or scoliosis noted, normal range of motion, joints normal, no erythema, edema, effusion, or ecchymosis. EXTREMITY: n o clubbing, cyanosis, edema, or deformity with normal ROM in both upper and lower bilateral extremities. NEUROLOGIC: g rossly normal. SKIN: n o rashes, ulcerations, or suspicious lesions. LYMPH NODES: n o cervical adenopathy, nodes normal. MENTAL STATUS: a lert and oriented x3, normal mood and affect. Assessment: * Assessment: 1. E xcessive thirst - R63.1 (Primary) 2 . W ell adult - Z00.00 ?3. A bdominal mass - R19.00 Plan: * Treatment: 2. W ell adult L AB: HEMOGLOBIN A1C (GLYCO) L AB: IRON, TOTAL L AB: LIPID PANEL (CHOL/TRIG/HDL/LDL) L AB: Insulin Level L AB: THYROID PANEL (T4/TSH/FREE T3) L AB: CMP (COMP MET BARNES) w/eGFR CKD-EPI L AB: CBC WITH DIFF 3. A bdominal mass I maging: CT ABD and PELV W CON I maging: XR ABD FLAT UP_PA CH * Labs: * L ab: GLUCOSE - IN OFFICE (Collection Date & Time - 12/19/2024) Value Reference Range G lucose 88 74 - 106 MG/DL * Karen Melgoza 10:51:26 AM EDT > fasting * Procedure Codes: 8 2948 GLUCOSE;BLOOD,REGNT.STRIP * Preventive Medicine: Screenings/Counseling: B [place] ACTION PLAN Above Normal BMI Follow-up D ietary management education, guidance, and counseling See treatment section of progress note for complete details of management plan. * * Electronic signature of Luke Fisher MD, [id number] on 12/19/2024 at 11:47 AM EDT Sign off status: Pending Visit Status: C HK (Check Out) * Provider: Jose Fisher ([facility])MD Date: 0 12/19/2024 Generated for Printi ng/Faxing/eTransmitting on: 0 12/19/2024 11:47 AM EDT History and Physical Notes * HPI (History of Present Illness) Category Sub-Category Detail Notes Category Not es General Not sure abotu FH - thyroid or DM _but trobule focusing and fatigue unable to maintain a good weight - some gibbs - but assoc with eating - saw GI - had EGD a-- all good Examination Category Sub-Category Detail Notes Category Not es Physical Exam GENERAL: well developed, well nourished, in no acute distress HEAD: normocephalic/atraum atic EYES: pupils equal, round and reactive to light, conjunctivae and sclerae normal EARS: no deformity or lesi on of external ear, canals and TM appear normal bilaterally, TM's intact, not inflamed with normal light reflex, hearing grossly normal to conversational speech NOSE: no deformity, discha rge, inflammation, or lesions MOUTH: mucous membranes billie st, normal oropharynx and posterior pharynx without lesions or exudates, tongue normal, dentition normal NECK: neck supple, no mass es or palpable cervical nodes, trachea midline, thyroid without nodules, masses, tenderness, or enlargement CHEST: no chest wall deform ity, no chest wall tenderness LUNGS: normal respiratory e ffort and clear to auscultation, no wheezes, rales, or rhonchi, good air exchange CARDIO: regular rate and rhy thm, normal S1 and S2, nor murmur, rub, or gallop PULSES: normal capillary ref ill ABDOMEN: some abd disention - no masses neded - RECTAL: MUSCULOSKELETAL: no deformity or scol iosis noted, normal range of motion, joints normal, no erythema, edema, effusion, or ecchymosis EXTREMITY: no clubbing, cyanosi s, edema, or deformity with normal ROM in both upper and lower bilateral extremities NEUROLOGIC: grossly normal SKIN: no rashes, ulceratio ns, or suspicious lesions LYMPH NODES: no cervical adenopat hy, nodes normal MENTAL STATUS: alert and oriented x 3, normal mood and affect
--- OUTSIDE RECORDS SUMMARY | 2024-12-19 11:46 | XMS_ITS | Encounter Summary ---
Author Organization [facility] Address [address] [facility] [place] [address] Care Team Providers Care Press Operator [employer] Name Role Phone Unallocated, Noms Provider Primary Care Provi alin Encounter Details Date Type Department Care Team (Late st Contact Info) Description 12/09/2024 Telephone [facility] [address] [facility] [address] [place] [phone] Areli Ferrer LPN [address] [place] [address] Social History Tobacco Use Types Packs/Day Years Used Date Smoking Tobacco: Never Smokeless Tobacco: Never Alcohol Use Standard Drinks/Week Comments Not Currently 0 (1 standard drink = 0.6 oz pur e alcohol) AUDIT-C Answer Date Recorded Q1: How often do you have a drink containing alcohol? Never 09/04/2023 Q2: How many drinks containi ng alcohol do you have on a typical day when you are drinking? Patient does not drink Q3: How often do you have si x or more drinks on one occasion? Never 09/04/2023 PHQ-2 Answer Date Recorded Patient Health Questionnaire-2 Score 0 09/27/2023 Comments No Sex and Gender Information Value Date Recorded Sex Assigned at Female 09/03/2023 7:04 PM EDT Legal Sex Female 6:43 PM EDT Gender Identity Female 09/03/2023 7:04 PM EDT Sexual Orientation Not on file documented as of this encounter Miscellaneous Notes * Telephone Encounter - Areli Ferrer LPN - 12/09/2024 10:32 AM EDT Pt requesting appt with RAFFY, she reports she is experiencing bloating for the past few months, and reports experiencing pain low in her pubic area and to the left side. X'2 weeks. She states the painis intermittent and can last for several mins to an hour, but has been happening daily. Pt was referred to GI for bloating issues, they did both a EGD and Colonoscopy that were both neg for any acuteprocess. Pt reports she only takes Lexapro. She had TLH in 2021, and did not have any issues until recently . Pt denies any Bleeding, N/V She reports she is so bloated I look like I'm 6 mo Reviewed pt chart, see this is ongoing issue, however pain in new. Scheduled pt for In house US and f/ up appt. With Raffy 12/29/24 Will forward to provider to review. documented in this encounter Plan of Treatment Upcoming Encounters Date Type Department Care Team (Late st Contact Info) Description 12/29/2024 9:30 AM EDT Ancillary Procedure [facility] [address] [place] [address] 12/29/2024 10:30 AM EDT Office Visit [facility] [address] [place] [address] Alejandro Alvarez, DO [address] [place] [address] documented as of this encounter Visit Diagnoses Not on filedocumented in this encounter Care Teams Press Operator [employer] Relationship Specialty Start Date End Date Unallocated, Noms Provider, [place] [address] PCP - General Family Medicine 09/04/23 documented as of this encounter
--- OUTSIDE RECORDS SUMMARY | 2024-12-19 11:46 | XMS_ITS | Clinical Summary ---
Author Organization [facility] Address [address] [address] [place] [address] Care Team Providers Care Contracting Support Specialist Name Role Phone Unallocated, Noms Provider Primary Care Provi alin Allergies Active Allergy Reactions Criticality Noted Date Comments Ciprofloxacin 07/02/2017 Other Reaction(s): Unknown Medications escitalopram (Lexapro) 20 MG tablet TAKE 1 TABLET BY MOUTH EVERY DAY FOR 90 DAYS Active valACYclovir (Valtrex) 500 MG tabletIndication s:HSV infection Take 1 tablet (500 mg) by mouth Daily 90 tablet 3 09/04/2023 Active Flibanserin (Addyi) 100 MG tabletIndication s:Low libido Take 1 tablet by mouth Daily 3 tablet 3 09/27/2023 Active Encounters Date Type Department Care Team Description 12/09/2024 Telephone [facility] [address] [facility] [address] [place] [phone] Areli Ferrer LPN from Last 3 Months Family History Medical History Relation Name Comments Heart failure Maternal Grandfather . Cancer Maternal Grandmother . Diabetes Mother . Ovarian cancer Mother's Sister 1 .no Breast cancer Mother's Sister 2 . Cancer Other family hx of ov tanesha cancer Relation Name Status Comments Father Alive Maternal Grandfather . Maternal Grandmother . Mother . Alive Mother's Sister 1 .no Mother's Sister 2 . Other Social History Tobacco Use Types Packs/Day Years Used Date Smoking Tobacco: Never Smokeless Tobacco: Never Tobacco Cessation:Counseling Given: Yes Alcohol Use Standard Drinks/Week Comments Not Currently [...] PM EDT Sexual Orientation Not on file Last Filed Vital Signs Vital Sign Reading Time Taken Comments Blood Pressure 120/74 09/04/2023 2:32 PM EDT Pulse - - Temperature - - Respiratory Rate - - Oxygen Saturation - - Inhaled Oxygen Concentration - - Weight 71.7 kg (158 lb) 09/27/2023 1:26 PM EDT Height 158.8 cm (5' 2.5 ) 05/25/2022 12:00 PM ES T Body Mass Index 28.44 05/25/2022 12:00 PM EST Plan of Treatment Upcoming Encounters Date Type Department Care Team (Late st Contact Info) Description 12/29/2024 9:30 AM EDT Ancillary Procedure [facility] [address] [facility] [address] [place] [address] 12/29/2024 10:30 AM EDT Office Visit [facility] [address] [facility] [address] [place] [phone] Alejandro Alvarez, [address] [facility] [address] [place] [address] Health Maintenance Due Date Last Done Comments Influenza Vaccine (Season Ended) 2025 Cervical Cancer Screening Discontinued HPV/Cotest Discontinued 09/04/2023, 12/23, 07/19/2021, Additional history exists Pap Smear Discontinued 09/04/2023 Procedures Procedure Name Priority Date/Time Associated Diagnosis Comments THINPREP TIS PAP AND HPV MRNA E6/E7 Routine 09/04/2023 3:41 PM EDT Screening for malignant neoplasm of cervix Encounter for gynecological examination without abnormal finding from Last 3 Months or Most Recently Relevant to Health Maintenance Results * THINPREP TIS PAP AND HPV MRNA E6/E7 (09/04/2023 3:41 PM EDT) CLINICAL INFORMATION [facility] Comment:None given LMP [facility] Comment:NONE GIVEN PREV. PAP [facility] Comment:NONE GIVEN PREV. BX [facility] Comment:NONE GIVEN SOURCE [facility] Comment:None given STATEMENT OF ADEQUACY [facility] Comment: Satisfactory for evaluation. Endocervical/transformation zone component absent. INTERPRETATION/RESU LT [facility] Comment: Cytology Results: Negative for intraepithelial lesion or malignancy. COMMENT [facility] Comment: This Pap test has been evaluated with computer assisted technology. 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 (ALWAYS MESSAGE) [facility] Comment: EXPLANATORY NOTE: The Pap is a screening test for cervical cancer. It is not a diagnostic test and is subject to false negative and false positive results. It is most reliable when a satisfactory sample, regularly obtained, is submitted with relevant clinical findings and history, and when the Pap result is evaluated along with historic and current clinical information. HPV MRNA E6/E7 Not Detected Not Detected [facility] Comment: Methodology: Patch Finisher-Mediated Amplification This assay detects E6/E7 viral messenger RNA (mRNA) from 14 high-risk HPV types (16,18,31,33,35,39,45,51,52,56,58,59,66,68). Cervical sources are required for HPV testing. If a vaginal source from a patient who has had a total hysterectomy with removal of cervix was submitted, please contact the testing laboratory for alternative testing options. For additional information, please refer to http://education.Net[employer]/faq/XSL255f3 (This link if provided for information/ educational purposes only.) Swab 09/04/2023 3:41 PM EDT 09/05/2023 3:00 AM EDT Narrative Resulting Agency Comment Performing Organization Information Site ID: [id number] Name: [facility] Address: [address] [place] [phone] Director: Niels Miller MD us Blayne Valencia MD LAB CYTOLOGY ORDERABLES Final Result [facility] from Last 3 Months or Most Recently Relevant to Health Maintenance Insurance [employer] Care Teams Contracting Support Specialist Relationship Specialty Start Date End Date Unallocated, Noms Provider, [address] [place], [place] [id number] PCP - General Family Medicine 09/04/23
--- OUTSIDE RECORDS SUMMARY | 2024-12-19 11:51 | XMS_ITS | CCD ---
Author Organization [facility] Care Team Providers Care Aluminum Siding Mechanic Name Role Phone MD Malu Fisher Primary Care Provider [phone] DO Alejandro Alvarez Attending Provider Alejandro Alvarez Admitting Unavailable Alejandro Alvarez Attending Unavailable Malu Fisher Primary Care Unavailable Alejandro Alvarez Admitting Unavailable Kim, Alejandro Attending Unavailable Malu Fisher Primary Care [...] Consulting Unavailteodoro DIAZ, DR LACEY Velazquez Admitting Unavailabl e DISHA, DR CHRISTINA Camara Consulting Unavailable Malu Fisher Primary Care Physician [phone] GAB SANCHEZ Attending Unavailable GAB SANCHEZ Referring Unavailable GAB SANCHEZ Referring Unavailable MoSandy willoughbyamad A. Attending Unavailable Mouchli, Mohamad A. Referring Unavailable Mouchgwen, Mohamad A. Admitting Unavailable Mofartun Mohamad A. Attending Unavailable Mofartun, Mohamad A. Admitting Unavailable Halley Ratliff H Attending Unavailable Mofartun, Mohamad A. Attending Unavailable Sandy Tarangoamad A. Attending Unavailable Sea Tarangod ADane Attending Unavailable Unavailable Unavailable Unavailable Allergies Allergy Classification Reported Allergen(s) Allergy Type Date of Onset Reaction(s) Facility Quinolones (antibiotic) (1 source) Ciprofloxacin; Translations: [ciprofloxacin] Drug Allergy [facility] (10 sources) Ciprofloxacin; Translations: [ciprofloxacin] Drug Allergy 12-03-2018 [facility] (1 source) Ciprofloxacin Drug Allergy [facility] Repository Medications Current Medications Medication Drug Class(es) Dates Sig (Normalized) Sig (Original) acetaminophen 325 mg / HYDROcodone bitartrate 5 mg oral tablet (1 source) Opioid Agonist Start: 04-27-2022 take 1 tablet by mouth every six hours Hydrocodone-Chase taminophen Active 1 TAB PO Q6H 12 April 27, 2022 cholestyramine resin 4000 mg powder for oral suspension (3 sources) Bile Acid Sequestrant Start: 10-08-2023 Questran 4 g/9 g oral powder = 1 packet(s), Oral, TID, # 90 EA, Refills(s) 0, [id number], 160, cm, 10/08/23 14:31:00 EDT, Height/Length Dosing, 73.6, kg, 10/08/23 14:31:00 EDT, Weight Dosing Start Date: 10/08/23 Status: Ordered colesevelam hydrochloride 625 mg oral tablet (2 sources) Bile Acid Sequestrant Start: 11-21-2023 take 3 tablets by mouth twice daily Welchol 625 mg Tab 1,875 mg = 3 tab(s), Oral, BID, # 540 tab(s), Refills(s) 0, Pharmacy: [facility]/pharmacy #[id number], 160, cm, 11/21/23 15:07:00 EDT, Height/Length Dosing, 73, kg, 11/21/23 15:07:00 EDT, Weight Dosing Start Date: 11/21/23 Status: Ordered Bentyl (3 sources) Anticholinergic Start: 06-30-2017 Bentyl 20 mg, Refills(s) 0 Start Date: 06/30/17 Status: Ordered Start: 06-29-2017 End: 12-03-2018 take 20 mg by mouth four times daily Dicyclomine Discontinued 20 MG PO Four times daily June 29, 2017 1:59pm December 03, 2018 11:33am escitalopram 20 mg oral tablet (6 sources) Serotonin Reuptake Inhibitor Start: 10-08-2023 take 20 mg by mouth once daily Lexapro 20 mg, Oral, Daily, Refills(s) 0, Depression Start Date: 10/08/23 Status: Ordered Start: 10-08-2023 Lexapro Oral, Daily, Refills(s) 0 Start Date: 10/08/23 Status: Ordered Start: 04-27-2022 take 1 tablet by alicia th once daily Escitalopram Oxalate (Lexapro) 10 mg [...] 03, 2018 12:00am April 27, 2022 8:55am loperamide hydrochloride 2 mg oral capsule (4 sources) Opioid Agonist Start: 11-21-2023 take 1 capsule by mouth every four hours Imodium 2 mg oral capsule 2 mg = 1 cap(s), Oral, q4hr, # 90 cap(s), Refills(s) 0, Pharmacy: [facility]/pharmacy #[id number], 160, cm, 11/21/23 15:07:00 EDT, Height/Length Dosing, 73, kg, 11/21/23 15:07:00 EDT, Weight Dosing Start Date: 11/21/23 Status: Ordered Start: 06-29-2017 End: 12-03-2018 Loperamide (Imodium A-D) 2 m g capsule Discontinued 2 MG PO EVERY 1-2 HOURS June 29, 2017 1:00am December 03, 2018 11:33am after each loose stool until symptoms controlled; do not exceed 16 mg total dose in 24 hrs Zofran (3 sources) Serotonin-3 Receptor Antagonist Start: 06-30-2017 Zofran Refills(s) 0 Start Date: 06/30/17 Status: Ordered Start: 06-29-2017 End: 12-03-2018 take 1 tablet by mouth every eight hours Ondansetron (Zofran Odt) 4 mg tablet,disintegrating Discontinued 4 MG PO Q8H 9 3 June 29, 2017 1:00am December 03, 2018 11:33am pantoprazole 40 mg delayed release oral tablet (6 sources) Proton Pump Inhibitor Start: 06-30-2017 take 1 [...] tablet Discontinued 1 TAB PO Q6H 10 2 August 05, 2019 April 27, 2022 6:13am May take 1-2 tabs q 6 hours prn pain Start: 12-03-2018 End: 08-05-2019 take 1 tablet by mouth every eight hours Oxycodone-Acetaminophen (Percocet) 5-325 mg tablet Discontinued 1 TAB PO Q8H 7 3 December 03, 2018 August 05, 2019 7:17am tamsulosin hydrochloride 0.4 mg oral capsule (3 sources) alpha-Adrenergic Thania Start: 12-03-2018 End: 08-05-2019 take 1 capsule by mouth once daily at bedtime Tamsulosin (Flomax) 0.4 mg capsule Discontinued 0.4 MG PO Daily at bedtime 7 7 December 03, 2018 12:00am August 05, 2019 7:17am Problems Active Problems Problem Classification Problem Date Documented Da te Episodic/Chronic Abdominal pain (5 sources) Abdominal pain; Translations: [Unspecified abdominal pain] Onset: 11-21-2023 06-29-2017 Episodic Calculus of urinary tract (3 sources) Kidney stone; Translations: [Calculus of kidney] 12-03-2018 Episodic Malaise and fatigue (6 sources) Fatigue; Translations: [Other fatigue] Onset: 10-05-2023 Episodic Menstrual disorders (1 source) Excessive and frequent menstruation with regular cycle; Translations: [Excessive and frequent menstruation with regular cycle] Onset: 11-03-2022 Chronic Noninfectious gastroenteritis (5 sources) Noninfectious enteritis; Translations: [Noninfective gastroenteritis and colitis, unspecified] Onset: 10-08-2023 Episodic Other female genital disorders (1 source) Dyspareunia; Translations: [Other specified dyspareunia] Onset: 10-08-2023 Chronic Other gastrointestinal disorders (4 sources) Swollen abdomen; Translations: [Abdominal distension (gaseous)] Onset: 10-05-2023 Episodic Other gastrointestinal disorders (7 sources) Abdominal bloating 10-05-2023 Episodic Other nervous system disorders (1 source) Acute [...] MALIG NEOPLASM OF BREAST] Onset: 08-11-2022 Episodic Residual codes; unclassified (1 source) Pelvic organ finding; Translations: [Acquired absence of both cervix and uterus] Onset: 10-08-2023 Episodic Residual codes; unclassified (1 source) Early satiety; Translations: [Early satiety] Onset: 10-08-2023 Episodic Residual codes; unclassified (1 source) Acquired absence of organ; Translations: [Acquired absence of other specified parts of digestive tract] Onset: 10-08-2023 Episodic Sprains and strains (2 sources) Unspecified [...] [CONTACT W/AND (SUSP) EXPOS COVID-19] Onset: 07-17-2022 Unclassified (2 sources) Finding of sensation of abdomen 11-21-2023 Past or Other Problems Problem Classification Problem Date Documented Da te Episodic/Chronic Unclassified (1 source) COUGH, UNSPECIFIED; Translations: [COUGH, UNSPECIFIED] Onset: 07-13-2022 Results Test Name Value Interpretation Reference Range Facility Ambulatory Visit Summaryon 0 11-21-2023 Ambulatory Visit Summary TALIA RIVERA :1985 Visit Date:11/21/2023 Ambulatory Visit Instructions Your Diagnosis Abdominal bloating, Bloating Chronic diarrhea Abdominal cramping Your Care Team Attending Physician - Elda Tarango MD Primary Care Physician - Malu Fisher MD This Is Your Medications List colesevelam (Welchol 625 mg Tab) loperamide (Imodium 2 mg oral capsule) Contact prescribing physician if questions or concerns escitalopram (Lexapro) pantoprazole (Protonix 40 mg Tab-DR) Procedures Performed Colonoscopy (11/05/2023), Esophagogastroduodenoscop y (11/05/2023), section, Gallbladder, Hysterectomy. Discharge Vitals Heart Rate (Peripheral) 91 Respiratory Rate 16 Blood Pressure 114/82 Height 160 cm Height 63 in Weight 73 kg Weight 160.6 lb BMI 28.52 What to do next Scheduled Follow-Up Appointments Sunday 1:45 PM EDT With: Emelina HARLEY, Elda Dewey Where: [facility] Gastroenterology Office/Clin ic Noteon 11-21-2023 Gastroenterology Office/Clinic Note Chief Complaint follow up egd/colon HPI Staff Patient is a 38 year old female here today to review results from EGD and colonoscopy. Colonoscopy Findings: 1. Small internal hemorrhoids seen on retroflexion 2. Normal colon, random biopsies were obtained to rule out microscopic colitis 3. Normal Terminal ileum Recommendations: Repeat colonoscopy:: In 10 years. EGD: Z-line was irregular at 38 cm Mild reflux esophagitis Small hiatal hernia Mild erythema in the prepyloric region consistent with gastropathy status post biopsies Mild erythema in the duodenal bulb consistent with duodenitis status post biopsies Pathology: A: STOMACH, BIOPSY: - Gastric antral and fundic gland mucosa with reactive gastropathy - Negative for intestinal metaplasia or dysplasia - Negative for H. pylori (immunohistochemical staining) Note: Appropriate positive control reviewed for H. pylori immunostaining. B: DUODENUM, BIOPSY: - Duodenal mucosa with focal gastric foveolar metaplasia C: COLON, RANDOM BIOPSY: - Colonic mucosa with benign lymphoid aggregates Dr Tarango Assessment/Plan: 10/08/2023 1. Abdominal bloating (R14.0: Abdominal distension (gaseous)) Ordered: cholestyramine, = 1 packet(s), Oral, TID, # 90 EA, Refills(s) 0, Pharmacy: [facility] #[id number], 160, cm, 10/08/23 14:31:00 EDT, Height/Length Dosing, 73.6, kg, 10/08/23 14:31:00 EDT, Weight Dosing Calprotectin, Fecal Celiac Disease Comprehensive Clostridium Difficile PCR Colonoscopy (Hospital Procedure) EGD Endoscopy (Hospital Procedure) Enteric Panel by PCR H. pylori Stool Ag O & P Exam, Routine Pancreatic Elastase, Fecal 2. Fatigue (R53.83: Other fatigue) 3. Chronic diarrhea (K52.9: Noninfective gastroenteritis and colitis, unspecified) 4. S/P cholecystectomy (Z90.49: Acquired absence of other specified parts of digestive tract) 5. S/P hysterectomy (Z90.710: Acquired absence of both cervix and uterus) 6. Dyspareunia due to medical condition in female patient (N94.19: Other specified dyspareunia) 7. Early satiety (R68.81: Early satiety) 8. Epigastric pain Obtain celiac panel, stool calprotectin, ova and parasites, C. difficile, stool culture, pancreatic elastase, and H. pylori stool antigen Start Questran twice daily and advised to space out from other medications by 4 hours Might benefit from EGD with stomach and small bowel biopsies and colonoscopy with random colon biopsies and TI evaluation if she does not improve with Questran and if the above workup is negative Might benefit from gastric emptying test in the future Celiac Panel: 10/15/2023 Antigliadin IgA: 3 (10/15/23) Antigliadin Ig (10/15/23) Endomysial Antibody IgA: Negative (10/15/23) IgA Quant: 151 (10/15/23) t-Transglutaminase IgA: <2 (10/15/23) t-Transglutaminase IgG: <2 (10/15/23) Stool Studies: 10/15/2023 Reference Laboratory Testing Antigliadin IgA * 3 unit(s) Antigliadin IgG * 3 unit(s) Calprotectin, Fecal * <5 mcg/gm Endomysial Antibody IgA Negative IgA Quant * 151 mg/dL Ova/Para Exam Rt * Final report Result 1 * Comment Pancreatic Elastase, Fecal * 267 t-Transglutaminase IgA * <2 unit/mL t-Transglutaminase IgG * <2 unit/mL H. pylori Stool Ag * Negative Molecular Diagnostics Campylobacter group * Not Detected Salmonella species * Not Detected Shigella species Not Detected Shiga Toxin 1 Not Detected Shiga Toxin 2 Not Detected Shiga Tox Interp Negative Vibrio Group Not Detected Rotavirus A Not Detected Norovirus GI/GII Not Detected Yersinia enterocolitica Not Detected Cdiff Specimen Acceptable Unacceptable Order Cancelled YES History of Present Illness I have reviewed HPI staff note, most recent labs and imaging, more than 30 minutes spent reviewing the chart, during encounter, placing orders and counseling the patient. pt still with diarrhea no gallbladder since 2018 watery diarrhea and more than 8 times a day worse in the last 1-1.5 years abd cramping with diarrhea did not try the powder for diarrhea Review of Systems All systems reviewed, negative except as mentioned above Physical Exam Vitals & Measurements HR: 91(Peripheral) RR: 16 BP: 114/82 HT: 63 in HT: 160 cm WT: 73 kg WT: 160.6 lb BMI: 28.52 General: alert, no acute distress HEENT: atraumatic normocephalic Cardiovascular: regular rate and rhythm, normal peripheral perfusion Respiratory: Lungs CTA, respirations non labored Extremities: no deformity, no trauma Abdomen: Benign, soft, tender nondistended Assessment/Plan 1. Abdominal bloating, (R14.0: Abdominal distension (gaseous))Bloating Ordered: cholestyramine, = 1 packet(s), Oral, TID, # 90 EA, Refills(s) 0, Pharmacy: [facility] #[id number], 160, cm, 10/08/23 14:31:00 EDT, Height/Length Dosing, 73.6, kg, 10/08/23 14:31:00 EDT, Weight Dosing colesevelam, 1,875 mg = 3 tab(s), Oral, BID, # 540 tab(s), Refills(s) 0, Pharmacy: [facility]/pharmacy #[id number], 160, cm, 11/21/23 15:07:00 EDT, Height/Length Dosing, (more content not included)... [facility] Comment on above: Result Comment: Elec tronically Signed By: Emelina HARLEY, Elda Dewey\.br\Date and Time Signed: 11/21/23 15:36 EDT Progress Note-Physicianon Progress Note-Physician Patient: TALIA RIVERA Age: 38 years Sex: Female : 1985 Associated Diagnoses: None Author: Romero So Jr., DO Preoperative Information Anesthesia history: Patient history: No prior anesthetic problems. Informed consent: Signed by patient. Re-evaluation prior to induction: Initial evaluation reviewed: No significant change. Review of Systems Respiratory: Negative except as documented in history of present illness. Cardiovascular: Negative except as documented in history of present illness. Health Status Allergies: Allergic Reactions (Selected) Severity Not Documented Ciprofloxacin- Hives., Allergies (1) Active Severity Reaction ciprofloxacin Hives Current medications: (Selected) Prescriptions Prescribed Protonix 40 mg Tab-DR: 40 mg = 1 tab(s), Oral, Daily, # 30 tab(s), Refills(s) 0 Questran 4 g/9 g oral powder: = 1 packet(s), Oral, TID, # 90 EA, Refills(s) 0, Pharmacy: [facility] #[id number], 160, cm, 10/08/23 14:31:00 EDT, Height/Length Dosing, 73.6, kg, 10/08/23 14:31:00 EDT, Weight Dosing Documented Medications Documented Lexapro: 20 mg, Oral, Daily, Refills(s) 0, Depression, Home Medications (3) Active Lexapro 20 mg, Oral, Daily Protonix 40 mg Tab-DR 40 mg = 1 tab(s), Oral, Daily Questran 4 g/9 g oral powder 1 packet(s), Oral, TID , No qualifying data available Problem list: All Problems Abdominal bloating / SNOMED CT 803136297 / Confirmed Fatigue / SNOMED CT 518938269 / Confirmed Histories Past Medical History: No active or resolved past medical history items have been selected or recorded. Procedure history: Colonoscopy (632882283) on 11/05/2023 at 38 Years. Esophagogastroduodenoscop y (755283647) on 11/05/2023 at 38 Years. section (19364530). Hysterectomy (244614778). Gallbladder (14724720). Social History Social & Psychosocial Habits Alcohol 10/08/2023 Risk Assessment: Denies Alcohol Use Substance Abuse 10/08/2023 Risk Assessment: Denies Substance Abuse Tobacco 10/08/2023 Risk Assessment: High Risk 10/08/2023 Tobacco Use: Never (less than 100 in l . Physical Examination VS/Measurements Airway: Mallampati classification: II (soft palate, fauces, uvula visible). Respiratory: Lungs are clear to auscultation, Respirations are non-labored. Cardiovascular: Regular rhythm. Plan [place] [employer]esthesiologists (ASA) physical status classification: Class II. Anesthetic Preoperative Plan: Anesthesia General, and -TIVA. [facility] Comment on above: Result Comment: Elec tronically Signed By: Romero So Jr., DO\.br\Date and Time Signed: 11/09/23 07:13 EDT Progress Note-Physician Patient: TALIA RIVERA Age: 38 years Sex: Female : 1985 Associated Diagnoses: None Author: Romero So Jr., DO Preoperative Information Anesthesia history: Patient history: No prior anesthetic problems. Informed consent: Signed by patient. Re-evaluation prior to induction: Initial evaluation reviewed: No significant change. Review of Systems Respiratory: Negative except as documented in history of present illness. Cardiovascular: Negative except as documented in history of present illness. Health Status Allergies: Allergic Reactions (Selected) Severity Not Documented Ciprofloxacin- Hives., Allergies (1) Active Severity Reaction ciprofloxacin Hives Current medications: (Selected) Prescriptions Prescribed Protonix 40 mg Tab-DR: 40 mg = 1 tab(s), Oral, Daily, # 30 tab(s), Refills(s) 0 Questran 4 g/9 g oral powder: = 1 packet(s), Oral, TID, # 90 EA, Refills(s) 0, Pharmacy: [facility] #[id number], 160, cm, 10/08/23 14:31:00 EDT, Height/Length Dosing, 73.6, kg, 10/08/23 14:31:00 EDT, Weight Dosing Documented Medications Documented Lexapro: 20 mg, Oral, Daily, Refills(s) 0, Depression, Home Medications (3) Active Lexapro 20 mg, Oral, Daily Protonix 40 mg Tab-DR 40 mg = 1 tab(s), Oral, Daily Questran 4 g/9 g oral powder 1 packet(s), Oral, TID , No qualifying data available Problem list: All Problems Abdominal bloating / SNOMED CT 170453935 / Confirmed Fatigue / SNOMED CT 196160079 / Confirmed Histories Past Medical History: No active or resolved past medical history items have been selected or recorded. Procedure history: Colonoscopy (501664078) on 11/05/2023 at 38 Years. Esophagogastroduodenoscop y (820322819) on 11/05/2023 at 38 Years. section (72316659). Hysterectomy (802871620). Gallbladder (27375005). Social History Social & Psychosocial Habits Alcohol 10/08/2023 Risk Assessment: Denies Alcohol Use Substance Abuse 10/08/2023 Risk Assessment: Denies Substance Abuse Tobacco 10/08/2023 Risk Assessment: High Risk 10/08/2023 Tobacco Use: Never (less than 100 in l . Physical Examination VS/Measurements Airway: Mallampati classification: II (soft palate, fauces, uvula visible). Respiratory: Lungs are clear to auscultation, Respirations are non-labored. Cardiovascular: Regular rhythm. Plan [place] [employer]esthesiologists (ASA) physical status classification: Class II. Anesthetic Preoperative Plan: Anesthesia General, and -TIVA. [facility] Comment on above: Result Comment: Elec tronically Signed By: Romero So Jr., DO.claude\Date and Time Signed: 11/09/23 07:12 EDT IntraOperative Documentson 0 11-08-2023 IntraOperative Documents [id number] [facility] Consenton 11-06-2023 Consent [id number] [facility] Discharge Instructionson Discharge Instructions [id number] [facility] Main OR Intraoperative Recor don 11-06-2023 Main OR Intraoperative Record IntraOp Document Type FT Summary Primary Physician: Elda Tarango MD Finalized Date/Time: 11/06/23 08:17:43 Pt. Name: TALIA RIVERA Bobby Valdez/Sex: 1985 Female Med Rec #: [id number] Physician: Elda Tarango MD Financial #: [id number] Pt. Type: O Room/Bed: / Admit/Disch: 11/05/23 07:45:43 - 11/05/23 23:59:59 Institution: Case Times FT Entry 1 Patient Times In Room 11/05/23 09:35:00 Out Room 11/05/23 09:58:00 Procedure Times Start 11/05/23 09:39:00 Stop 11/05/23 09:55:00 Anesthesia Times Start 11/05/23 09:35:00 Stop 11/05/23 09:58:00 Time at [facility] 11/05/23 09:48:00 Last Modified By: Saji ROCHA, Alem Morillo 11/05/23 09:58:15 General Comments: 0944 EGD completed/ALLIERN 0945 Colonoscopy began/ALLIERN 11/06/23 Chart opened for charge review per Raffy Umana RN. [place] Case Attendance FT Entry 1 Entry 2 Entry 3 Case Attendee Deppen LEATHER PATCHER, Orin Lennon RN, Luda Brown Role Performed LEATHER PATCHER Poultry Killer - Primary Staff - Other Time In 11/05/23 09:35:00 11/05/23 09:35:00 11/05/23 09:39:00 Time Out 11/05/23 09:58:00 11/05/23 09:58:00 11/05/23 09:58:00 Procedure EGD AND COLONOSCOPY(.) EGD AND COLONOSCOPY(.) EGD AND COLONOSCOPY(.) Comments Dr. So supervising Help in room. procedure. Last Modified By: Alem Lennon RN, RN, Alem Hays RN 11/05/23 09:58:19 11/05/23 09:58:19 11/05/23 09:58:19 Entry 4 Entry 5 Case Attendee Mirella MCKEON, Virginia Tarango MD, Elda Paz Role Performed Scrub - Primary Surgeon - Primary Time In 11/05/23 09:35:00 11/05/23 09:35:00 Time Out 11/05/23 09:58:00 11/05/23 09:58:00 Procedure EGD AND COLONOSCOPY(.) EGD AND COLONOSCOPY(.) Comments Last Modified By: Saji ROCHA, Alem Lennon RN, Alem Morillo 11/05/23 09:58:19 11/05/23 09:58:19 Perioperative Protocols FT Pre-Care Text: Implements protective measures prior to operative or invasive procedure, confirms identity before the operative or invasive procedure, verifies operative procedure, surgical site, and laterality Entry 1 Procedure(s) EGD AND COLONOSCOPY(.) Patient Identity Birthday, ID Band Verified (select at Check, Patient least 2): Participation Consents / H and P Anesthesia Consent, Operative Site N/A Verified HandP, Surgery/Procedure Marking Verified Consent Surgical Site No Laterality Verified n/a Verified Procedure Verified Yes Correct Patient Yes Position Verified Availability Equipment, Medication Prep Dry n/a Verified (If Applicable) PreOp Antibiotic No Time Out Deppen Orin DIEGO, Given Participants Alem Lennon RN, Schafer CST, Alexandria M, Mouchli MD, Elda Dewey Time Out Complete 11/05/23 09:36:00 Outcomes Met? Yes Last Modified By: Alem Lennon RN 11/05/23 09:37:19 Post-Care Text: The patient is free from signs and symptoms of injury caused by extraneous objects Allergy Information FT Pre-Care Text: Verifies allergies Entry 1 Allergies Reviewed? Yes Allergies Reviewed Self/Patient With Outcomes Met? Yes Last Modified By: Alem Lennon RN 11/05/23 09:37:26 Post-Care Text: The patient received appropriate medication(s) safely administered during the perioperative period Surgical Procedures FT Entry 1 Procedure Description Procedure EGD AND COLONOSCOPY Modifiers . Surgeon Description EGD with gastric biopsy and duodenal biopsy. Colonoscopy with random colon biopsy. Primary Procedure Yes Primary Surgeon Elda Tarango MD Start 11/05/23 09:39:00 Stop 11/05/23 09:55:00 Anesthesia Type General Surgical Service Gastroenterology Wound Class 2 - Clean-Contaminated Last Modified By: Alem Lennon RN 11/05/23 09:55:54 General Case Data FT Pre-Care Text: Classifies surgical wound, implements aseptic technique, initiates traffic control Entry 1 Case Information OR ENDO 1 FT Case Level Level 2 Wound Class 2 - Clean-Contaminated Specialty Gastroenterology ASA Class 2 Preop Diagnosis BLOATING, CHRONIC Postop Same As Preop No DIARRHEA Postop Diagnosis EGD- mild esophagitis, Outcomes Met? Yes mild gastropathy, mild duodenitis and small hiatal hernia. Colonoscopy- internal hemorrhoids. Last Modified By: Lyndsay ROCHA, BSN, Alyson 11/06/23 08:17:18 Post-Care Text: The patient is free from signs and symptoms of infection Skin Assessment (Pre Procedure) FT Pre-Care Text: Implements protective measures to prevent skin/ tissue injury due to thermal or mechanical sources Evaluates for signs and symptoms of physical injury to skin and tissue Entry 1 Skin Integrity Intact, [place], Warm, and Skin Abnormality No Dry Outcomes Met? Yes Last Modified By: Alem Lennon RN 11/05/23 09:38:02 Post-Care Text: The patient is free from signs and symptoms of injury caused by extraneous objects Patient Positioning FT Pre-Care Text: Identifies physical alterations that require additional precautions for procedure-s (more content not included)... [facility] Postoperative Documentson Postoperative Documents [id number] [facility] Colonoscopy Procedure Report on 11-05-2023 Colonoscopy Procedure Report Patient: TALIA RIVERA Age: 38 years Sex: Female : 1985 Associated Diagnoses: None Author: Edla Tarango MD Pre-Procedure Procedure Date 11/05/2023 09:59:00 . Procedure Type: Colonoscopy with biopsy. Procedure provider Performed by Elda Tarango MD. Current history and physical Documented on chart. section (). Hysterectomy ([id number]). Gallbladder ([id number]).. Past Medical History No active or resolved past medical history items have been selected or recorded.. Family History Entire family history is negative.. Procedure History section (). Hysterectomy ([id number]). Gallbladder ([id number]).. Colorectal neoplasm risk assessment Average risk. Informed Consent After discussing the rationale, risks and benefits, and alternatives to this procedure, the patient provided signed consent for the procedure. Pre-procedure diagnosis: Diarrhea, clinically significant. Medications (Selected) Inpatient Medications Ordered Sodium Chloride 0.9% IV Samantha 1000 mL 1,000 mL: 1,000 mL, IV, 20 mL/hr, Routine, Start date 11/05/23 6:39:00 EDT, 50 hour(s), Total volume (mL): 1,000, 73.6 kg, 1.81, m2 Prescriptions Prescribed Protonix 40 mg Tab-DR: 40 mg = 1 tab(s), Oral, Daily, # 30 tab(s), Refills(s) 0 Questran 4 g/9 g oral powder: = 1 packet(s), Oral, TID, # 90 EA, Refills(s) 0, Pharmacy: [facility] #[id number], 160, cm, 10/08/23 14:31:00 EDT, Height/Length Dosing, 73.6, kg, 10/08/23 14:31:00 EDT, Weight Dosing Documented Medications Documented Lexapro: 20 mg, Oral, Daily, Refills(s) 0, Depression ASA Classification: Class II. . Monitoring: See anesthesia record. . Procedure The procedure was performed in the hospital. See anesthesia record for sedation given during procedure. The patient was positioned starting in the left lateral decubitus position. Endoscope type used was a pediatric-size. The endoscope was lubricated then introduced through the anus. The scope was advanced to the terminal ileum. No difficulties encountered during the procedure. The bowel preparation quality was good and was adequate (see polyps greater than or equal to 6 millimeters). The patient tolerated the procedure well. Last colonoscopy: none Time to cecum: 3 min Time of withdrawal: 7 min Findings 1. Small internal hemorrhoids seen on retroflexion 2. Normal colon, random biopsies were obtained to rule out microscopic colitis 3. Normal Terminal ileum Images Procedure images: Rec_hd_video_2023__T __[id number].jpg Rec_hd_video_T [id number].jpg Rec1_hd_video_2023__T __171.jpg Rec1_hd_video_2023__T __707.jpg Rec1_hd_video_2023__T _848.jpg . Post-Procedure Complications: none. Estimated blood loss: Minimal. Specimens: sent to pathology. Devices/ implants: none left in place. Impression and Plan small internal hemorrhoids Recommendations: Repeat colonoscopy:: In 10 years. Follow-up:: in clinic for 1-2 weeks when pathology is available. Diet:: Previous. Medication resumption:: Continue current medications, Avoid NSAIDs. Return to activities:: After 24 hours. Education and Follow-up: Counseled: Patient, Family. [facility] Comment on above: Other Comment: Elvira lau Attachment - attachment storage system not supported [id number] Can be viewed in source systemMissing Attachment - attachment storage system not supported [id number] Can be viewed in source systemMissing Attachment - attachment storage system not supported [id number] Can be viewed in source systemMissing Attachment - attachment storage system not supported [id number] Can be viewed in source systemMissing Attachment - attachment storage system not supported [id number] Can be viewed in source system Consent for Treatmenton 10-23 Consent for Treatment [id number] [facility] Discharge Instructionson Discharge Instructions TALIA RIVERA :1985 Visit Date:11/05/2023 Inpatient Discharge Instructions Your Care Team Admitting Physician - Elda Tarango MD Referring Physician - Elda Tarango MD Reason for Your Visit BLOATING, CHRONIC DIARRHEA Your Diagnosis Esophagitis Gastropathy Hemorrhoids, internal Tests Performed Pathology Tissue Exam -- Results Pending -- Please visit your patient portal for your results or contact your primary care physician. This Is Your Medications List cholestyramine (Questran 4 g/9 g oral powder) escitalopram (Lexapro) pantoprazole (Protonix 40 mg Tab-DR) Procedure History Colonoscopy (11/05/2023), Esophagogastroduodenoscop y (11/05/2023), section, Gallbladder, Hysterectomy. What to do next Instructions From Your Doctor No qualifying data available. New Follow Up Appointments after Discharge Follow Up with Elda Tarango MD, [facility], [facility] When: Comments: -Office to call for pathology results. Call for any problems. [phone] Where: [address] [place] [address], [address] [place] [address]- [phone] Business (1) Medications What How Much When Why Instructions Next Dose Unchanged cholestyramine (Questran 4 g/ 9 g oral powder) 1 Packets By Mouth 3 times a day Abdominal bloating Fatigue Chronic diarrhea S/P cholecystectomy S/P hysterectomy Dyspareunia due to medical condition in female patient Unchanged escitalopram (Lexapro) 20 Milligram By Mouth Every day Unchanged pantoprazole (Protonix 40 mg Tab-DR) 1 Tablets By Mouth Every day Test Results No qualifying data available. Allergies ciprofloxacin (Hives) Problems Ongoing - Any problem that you are currently receiving treatment for. Abdominal bloating Fatigue Education Materials Colonoscopy Care After Surgery Please read the instructions outlined below and refer to this sheet in the next few weeks. These discharge instructions provide you with general information on caring for yourself after you leave the hospital. Your doctor may also give you specific instructions. While your treatment has been planned according to the most current medical practices available, unavoidable complications occasionally occur. If you have any problems or questions after discharge, please call your doctor. ACTIVITY You may resume your regular activity, but move at a slower pace for the next 24 hours. Take frequent rest periods for the next 24 hours. Walking will help get rid of the air and reduce the bloated feeling in your abdomen (belly). No driving for 24 hours (because of the anesthesia (medicine) used during the test). You may shower. Do not sign any important legal documents or operate any machinery for 24 hours (because of the anesthesia used during the test). NUTRITION Drink plenty of fluids. You may resume your normal diet as instructed by your doctor. Begin with a light meal and progress to your normal diet. Heavy or fried foods are harder to digest and may make you feel nauseated (sick to your stomach). Avoid alcoholic beverages for 24 hours or as instructed. MEDICATIONS You may resume your normal medications unless your doctor tells you otherwise. WHAT YOU CAN EXPECT TODAY Some feelings of bloating in the abdomen. Passage of more gas than usual. Spotting of blood in your stool or on the toilet paper. FOLLOW-UP Your doctor will discuss the results of your test with you. SEEK IMMEDIATE MEDICAL ATTENTION IF: There is more than a spotting of blood in your stool. There is abdominal distention (your abdomen is swollen). There is vomiting. You have a temperature over 101.5 F. There is abdominal pain or discomfort that is severe or gets worse throughout the day. Endoscopy Care After Procedure Please read the instructions outlined below and refer to this sheet in the next few weeks. These discharge instructions provide you with general information on caring for yourself after you leave the hospital. Your doctor may also give you specific instructions. While your treatment has been planned according to the most current medical practices available, unavoidable complications occasionally occur. If you have any problems or questions after discharge, please call your doctor. ACTIVITY ? You may resume your regular activity but move at a slower pace for the next 24 hours. ? Take frequent rest periods for the next 24 hours. ? Walking will help expel (get rid of) the air and reduce the bloated feeling in your abdomen. ? No driving for 24 hours (because of the anesthesia (medicine) used during the test). ? You may shower. ? Do not sign any important legal documents or operate any machinery for 24 hours (because of the anesthesia used during the test). NUTRITION ? Drink plenty of fluids. ? You may resume your normal diet. ? Begin with a light meal and progress to your normal diet. ? Avoid alcoholic bever (more content not included)... Normal [facility] Comment on above: Result Comment: Elec tronically Signed By: Tremayne ROCHA, Hiwot Osuna\.br\Date and Time Signed: 11/05/23 10:05 EDT EGDon 11-05-2023 Esophagogastroduodenosco py Patient: TALIA RIVERA Age: 38 years Sex: Female : 1985 Associated Diagnoses: None Author: Elda Tarango MD Pre-Procedure Procedure Date 11/05/2023 09:57:00 . Procedure Type: Esophagogastroduodenoscop y with biopsy. Procedure provider Performed by Elda Tarango MD. Current history and physical Documented on chart. Informed Consent After discussing the rationale, risks and benefits, and alternatives to this procedure, the patient provided signed consent for the procedure. Pre-procedure diagnosis: Bloating and diarrhea. Medications (Selected) Inpatient Medications Ordered Sodium Chloride 0.9% IV Samantha 1000 mL 1,000 mL: 1,000 mL, IV, 20 mL/hr, Routine, Start date 11/05/23 6:39:00 EDT, 50 hour(s), Total volume (mL): 1,000, 73.6 kg, 1.81, m2 Prescriptions Prescribed Protonix 40 mg Tab-DR: 40 mg = 1 tab(s), Oral, Daily, # 30 tab(s), Refills(s) 0 Questran 4 g/9 g oral powder: = 1 packet(s), Oral, TID, # 90 EA, Refills(s) 0, Pharmacy: [facility] #[id number], 160, cm, 10/08/23 14:31:00 EDT, Height/Length Dosing, 73.6, kg, 10/08/23 14:31:00 EDT, Weight Dosing Documented Medications Documented Lexapro: 20 mg, Oral, Daily, Refills(s) 0, Depression Anticoagulant/antiplatele t None. ASA Classification: Class II. . Monitoring: See anesthesia record. . Procedure The procedure was performed in the hospital. See anesthesia record for sedation given during procedure. The patient was positioned starting in the left lateral decubitus position and with safety measures. Endoscope type used was a pediatric-size, introduced orally, advanced to the 2nd portion of the duodenum. No difficulty was encountered during the procedure. Views were excellent. The patient tolerated the procedure well. Findings Z-line was irregular at 38 cm Mild reflux esophagitis Small hiatal hernia Mild erythema in the prepyloric region consistent with gastropathy status post biopsies Mild erythema in the duodenal bulb consistent with duodenitis status post biopsies Images Procedure images: Rec1_hd_video_2023__T [id number].jpg Rec1_hd_video_2023__T 08_[id number].jpg Rec1_hd_video_2023__13T 08_[id number].jpg Rec1_hd_video_2023__T 08_49_[id number].jpg Rec1_hd_video_2023__T 08_49_[id number].jpg Rec1_hd_video_2023__T 08_[id number].jpg Rec1_hd_video_2023__T 08_[id number].jpg . Post-Procedure Complications: none. Estimated blood loss: minimal. Specimens: sent to pathology. Devices/ implants: none left in place. Impression and Plan Small hiatal hernia Mild esophagitis Mild gastropathy Mild duodenitis Recommendations: -Resume previous diet -Resume home medications -Await pathology results, follow in GI clinic in 1-2 after discharge [facility] Comment on above: Other Comment: Elvira lau Attachment - attachment storage system not supported [id number] Can be viewed in source systemMissing Attachment - attachment storage system not supported [id number] Can be viewed in source systemMissing Attachment - attachment storage system not supported [id number] Can be viewed in source systemMissing Attachment - attachment storage system not supported [id number] Can be viewed in source systemMissing Attachment - attachment storage system not supported [id number] Can be viewed in source systemMissing Attachment - attachment storage system not supported [id number] Can be viewed in source systemMissing Attachment - attachment storage system not supported [id number] Can be viewed in source system Main OR PACU I Recordon 10-23 Main OR PACU I Record PACU Phase I Docum ent Type FT Summary Primary Physician: Elda Tarango MD Finalized Date/Time: 11/05/23 10:31:58 Pt. Name: TALIA RIVERA/Sex: 1985 Female Med Rec #: [id number] Physician: Elda Tarango MD Financial #: [id number] Pt. Type: O Room/Bed: / Admit/Disch: 11/05/23 07:45:43 - Institution: Case Times PACU I FT Pre-Care Text: Identifies barriers to communication and implements measures to provide psychological support Develops individualized plan of care, and ensures continuity of care Maintains patient's dignity and privacy, and maintains patient confidentiality Identifies and reports philosophical, cultural, and spiritual beliefs and values Identifies individual values and wishes concerning care Implements aseptic technique, and administers prescribed antibiotic therapy and immunizing agents as ordered Evaluates postoperative tissue perfusion Implements thermoregulation measures, and monitors body temperature Evaluates postoperative respiratory status Evaluates postoperative cardiac status Evaluates postoperative neurological status Assesses pain control, collaborated in initiating patient-controlled analgesia and implements alternative methods of pain control Verifies allergies, administers prescribed medications and solutions, evaluates response to medications Entry 1 In PACU I 11/05/23 09:58:00 Discharge from PACU 11/05/23 10:28:00 I Outcomes Met? Yes Last Modified By: Tremayne ROCHA, Hiwot Osuna 11/05/23 10:31:35 Post-Care Text: The patient demonstrates knowledge of the expected response to the operative or invasive procedure The patient's care is consistent with the individualized perioperative plan of care The patient's right to privacy is maintained The patient's value system, lifestyle, ethnicity, and culture are considered, respected, and incorporated into the perioperative plan of care The patient participates in decisions affecting his or her perioperative plan of care The patient is free from signs and symptoms of infection The patient has wound/tissue perfusion consistent with or improved from baseline levels established preoperatively The patient is at or returning to normothermia at the conclusion of the immediate postoperative period The patient's respiratory function is consistent with or improved from baseline levels established preoperatively The patient's cardiovascular status is consistent with or improved from baseline levels established preoperatively The patient's cardiovascular status is consistent with or improved from baseline levels established preoperatively The patient demonstrates and/or reports adequate pain control throughout the perioperative period The patient received appropriate medication(s), safely administered during the perioperative period Acuity Level PACU I FT Entry 1 Start Time 11/05/23 09:58:00 Stop Time 11/05/23 10:28:00 Acuity Level Acuity Level I Last Modified By: Hiwot Casper RN 11/05/23 10:31:46 Finalized By: Hiwot Casper RN Document Signatures Signed By: Hiwot Casper RN 11/05/23 10:31 Hiwot Casper RN 11/05/23 10:31 [facility] Main OR Preoperative Recordo n 11-05-2023 Main OR Preoperative Record Holding Area Document Type FT Summary Primary Physician: Elda Tarango MD Finalized Date/Time: 11/05/23 08:10:02 Pt. Name: TALIA RIVERA/Sex: 1985 Female Med Rec #: [id number] Physician: Elda Tarango MD Financial #: [id number] Pt. Type: O Room/Bed: / Admit/Disch: 11/05/23 07:45:43 - Institution: Case Times Holding FT Pre-Care Text: Verifies consent for planned procedure, identifies individual values and wishes concerning care, includes family members in perioperative teaching Secures patient's records' belongings, and valuables, maintains patient's dignity and privacy, and maintains patient confidentiality Entry 1 In Holding 11/05/23 08:05:00 Outcomes Met? Yes Last Modified By: Obie Ruvalcaba RN 11/05/23 08:08:49 Post-Care Text: The patient participates in decisions affecting his or her perioperative plan of care The patient's right to privacy is maintained Surgery Checklist FT Entry 1 Patient Birthday, ID Band Procedure History and Physical, Identification: Check, Patient Verification: Surgical Consent, With Participation Patient NPO after Midnight: No Date/Time: 11/05/23 04:00:00 Results Reviewed clear- yellow liquid Personal Items: Jewelry Comments: bowel results Personal Items clothing, shoes, nose Limitations: none Comment: ring Complaints of Pain: No Pain Comment: denies Operative Site n/a Marked By: n/a Marking: Location: n/a Availability Equipment Verified: Does Patient Smoke Yes If Yes to Smoking. vapes Cigars or Cigarettes. How much per day? Patient states Yes Comment - Adult Mother in law- Jolanta postop adult Supervision supervision available Case Cancelled in No Holding Area see comments below for reason Last Modified By: Obie Ruvalcaba RN 11/05/23 08:10:00 General Comments: pt finished bowel prep at 0400, per patient nothing to eat or drink since MSRN Finalized By: Obie Ruvalcaba RN Document Signatures Signed By: Obie Ruvalcaba RN 11/05/23 08:10 Normal [facility] Monitor Recordon 11-05-2023 Monitor Record [id number] Normal [facility] Monitor Record [id number] Normal [facility] Patient Education - Texton 0 11-05-2023 Patient Education - Text Colonoscopy Care After Surgery Please read the instructions outlined below and refer to this sheet in the next few weeks. These discharge instructions provide you with general information on caring for yourself after you leave the hospital. Your doctor may also give you specific instructions. While your treatment has been planned according to the most current medical practices available, unavoidable complications occasionally occur. If you have any problems or questions after discharge, please call your doctor. ACTIVITY You may resume your regular activity, but move at a slower pace for the next 24 hours. Take frequent rest periods for the next 24 hours. Walking will help get rid of the air and reduce the bloated feeling in your abdomen (belly). No driving for 24 hours (because of the anesthesia (medicine) used during the test). You may shower. Do not sign any important legal documents or operate any machinery for 24 hours (because of the anesthesia used during the test). NUTRITION Drink plenty of fluids. You may resume your normal diet as instructed by your doctor. Begin with a light meal and progress to your normal diet. Heavy or fried foods are harder to digest and may make you feel nauseated (sick to your stomach). Avoid alcoholic beverages for 24 hours or as instructed. MEDICATIONS You may resume your normal medications unless your doctor tells you otherwise. WHAT YOU CAN EXPECT TODAY Some feelings of bloating in the abdomen. Passage of more gas than usual. Spotting of blood in your stool or on the toilet paper. FOLLOW-UP Your doctor will discuss the results of your test with you. SEEK IMMEDIATE MEDICAL ATTENTION IF: There is more than a spotting of blood in your stool. There is abdominal distention (your abdomen is swollen). There is vomiting. You have a temperature over 101.5 F. There is abdominal pain or discomfort that is severe or gets worse throughout the day. Endoscopy Care After Procedure Please read the instructions outlined below and refer to this sheet in the next few weeks. These discharge instructions provide you with general information on caring for yourself after you leave the hospital. Your doctor may also give you specific instructions. While your treatment has been planned according to the most current medical practices available, unavoidable complications occasionally occur. If you have any problems or questions after discharge, please call your doctor. ACTIVITY ? You may resume your regular activity but move at a slower pace for the next 24 hours. ? Take frequent rest periods for the next 24 hours. ? Walking will help expel (get rid of) the air and reduce the bloated feeling in your abdomen. ? No driving for 24 hours (because of the anesthesia (medicine) used during the test). ? You may shower. ? Do not sign any important legal documents or operate any machinery for 24 hours (because of the anesthesia used during the test). NUTRITION ? Drink plenty of fluids. ? You may resume your normal diet. ? Begin with a light meal and progress to your normal diet. ? Avoid alcoholic beverages for 24 hours or as instructed by your caregiver. MEDICATIONS ? You may resume your normal medications unless your caregiver tells you otherwise. WHAT YOU CAN EXPECT TODAY ? You may experience abdominal discomfort such as a feeling of fullness or ?gas? pains. FOLLOW-UP ? Your doctor will discuss the results of your test with you. seek immediate medical attention if any of the following occur: ? Excessive nausea (feeling sick to your stomach) and/or vomiting. ? Severe abdominal pain and distention (swelling). ? Trouble swallowing. ? Temperature over 100 F (37.8? C). ? Rectal bleeding or vomiting of blood. Document Released: 01/23/2005 Document Re-Released: 12/03/2006 ExitCare? Patient Information ?2009 [employer] Gastroenterology Hiatal Hernia A hiatal hernia occurs when part of the stomach slides above the muscle that separates the abdomen from the chest (diaphragm). A person can be born with a hiatal hernia (congenital), or it may develop over time. In almost all cases of hiatal hernia, only the top part of the stomach pushes through the diaphragm. Many people have a hiatal hernia with no symptoms. The larger the hernia, the more likely it is that you will have symptoms. In some cases, a hiatal hernia allows stomach acid to flow back into the tube that carries food from your mouth to your stomach (esophagus). This may cause heartburn symptoms. The development of heartburn symptoms may mean that you have a condition called gastroesophageal reflux disease (GERD). What are the causes? This condition is caused by a weakness in the opening (hiatus) where the esophagus passes through the diaphragm to attach to the upper part of the stomach. A person may be born with a weakness in the hiatus, or a weakness can develop over time. What increases th (more content not included)... Normal [facility] Progress Note-Physicianon Progress Note-Physician Patient: TALIA RIVERA Age: 38 years Sex: Female : 1985 Associated Diagnoses: None Author: Romero So Jr., DO Postoperative Information Postoperative disposition: Postoperative disposition: Home. Optimetrix number: Optimetrix number [id number]. Anesthetic utilized: General. Physical Examination Vital Signs 11/05/2023 10:22 EDT Heart Rate Monitored 80 bpm Respiratory Rate Monitored 13 br/min Systolic Blood Pressure 99 mmHg Diastolic Blood Pressure 68 mmHg SpO2 97 % 11/05/2023 10:10 EDT Heart Rate Monitored 89 bpm Respiratory Rate Monitored 16 br/min Systolic Blood Pressure 112 mmHg Diastolic Blood Pressure 89 mmHg SpO2 100 % 11/05/2023 10:05 EDT Heart Rate Monitored 75 bpm Respiratory Rate Monitored 18 br/min Systolic Blood Pressure 98 mmHg Diastolic Blood Pressure 65 mmHg SpO2 98 % 11/05/2023 10:00 EDT Heart Rate Monitored 82 bpm Respiratory Rate Monitored 17 br/min Systolic Blood Pressure 102 mmHg Diastolic Blood Pressure 70 mmHg SpO2 96 % 11/05/2023 9:58 EDT Heart Rate Monitored 84 bpm Respiratory Rate Monitored 18 br/min Systolic Blood Pressure 105 mmHg Diastolic Blood Pressure 67 mmHg SpO2 95 % 11/05/2023 9:55 EDT Heart Rate Monitored 86 bpm bpm Respiratory Rate 19 br/min br/min Respiratory Rate Monitored 18 br/min br/min SpO2 95 % % Pain Assessment: Controlled. General: Awake, Alert, Appropriate. Respiratory: Adequate air exchange, Non-labored. Cardiovascular: Stable, Normal peripheral perfusion. Neurological: Neurologic exam at baseline. No changes.. Assessment Anesthetic outcome No anesthetic complications noted. No nausea/vomiting. Review / Management Condition: Stable. Plan Transfer/Discharge: Transfer/Discharge Discharge when meets criteria ( From PACU to Ambulatory Surgery Unit, and To home ). Normal [facility] Comment on above: Result Comment: Elec tronically Signed By: Romero So Jr., DO\.br\Date and Time Signed: 11/05/23 11:36 EDT Insurance Correspondenceon 0 10-25-2023 Insurance Correspondence [id number] Normal [facility] Calprotectin, Fecalon 2023 Calprotectin (Stl) [Mass/Mass] <5 Invalid Interpretation Code 0-120 [facility] Comment on above: Result Comment: Conc entration Interpretation Follow-Up < 5 - 50 ug/g Normal None >50 -120 ug/g Borderline Re-evaluate in 4-6 weeks >120 ug/g Abnormal Repeat as clinically indicated Performed at: [facility] [address] [id number] MD Fuad Leonard Performed By: #### 3 [id number], [id number], [id number], [id number], [id number], [id number], [id number] #### [facility] [address] [place] [address] H. pylori Stool Agon 024 H. pylori Ag IA Ql (Stl) Negative Invalid Interpretation Code Negative [facility] Comment on above: Result Comment: Perf ormed at: [address] [id number] PhD Iglesia Baltazar Performed By: #### 3 [id number], [id number], [id number], [id number], [id number], [id number], [id number] #### [facility] [address] [place] [address] O & P EXAM, ROUTINE, REFLEXo n 10-22-2023 Ova and parasites identified Concentration Nom (Stl) Comment Invalid Interpretation Code [facility] Comment on above: Result Comment: No o va, cysts, or parasites seen. One negative specimen does not rule out the possibility of a parasitic infection. Performed at: [address] [id number] PhD Iglesia Baltazar Performed By: #### 3 [id number], [id number], [id number], [id number], [id number], [id number], [id number] #### [facility] [address] [place] [address] O & P Exam, Routineon 2023 Ova and parasites identified LM Nom (Unsp spec) Final report Invalid Interpretation Code [facility] Comment on above: Result Comment: Thes e results were obtained using wet preparation(s) and trichrome stained smear. This test does not include testing for Cryptosporidium parvum, Cyclospora, or Microsporidia. Performed at: [address] [id number] PhD Iglesia Baltazar Performed By: #### 3 [id number], [id number], [id number], [id number], [id number], [id number], [id number] #### [facility] [address] [place] [address] Pancreatic Elastase, Fecalon 10-22-2023 Elastase.pancreatic (Stl) [Mass/Mass] 267 Invalid Interpretation Code >200 [facility] Comment on above: Result Comment: Noa re Pancreatic Insufficiency: <100 Moderate Pancreatic Insufficiency: 100 - 200 Normal: >200 Performed at: [facility] [address] [place], [place] [id number] MD Fuad Leonard Performed By: #### 3 [id number], [id number], [id number], [id number], [id number], [id number], [id number] #### [facility] [address] [place] [address] Celiac Disease Comprehensive on 10-16-2023 Endomysium IgA Ql (S) Negative Invalid Interpretation Code Negative [facility] Comment on above: Performed By: #### 3 [id number], [id number], [id number], [id number], [id number], [id number], [id number] #### [facility] [address] [place] [address] Gliadin peptide IgA Qn (S) 3 unit(s) Invalid Interpretation Code 0-19 [facility] Comment on above: Result Comment: Nega tive 0 - 19 Weak Positive 20 - 30 Moderate to Strong Positive >30 Performed By: #### 3 [id number], [id number], 3120485951, 1374496542, 0130703876, 1615214551, [id number] #### [facility] [address] [place] [address] Gliadin peptide IgG Qn (S) 3 unit(s) Invalid Interpretation Code 0-19 [facility] Comment on above: Result Comment: Nega tive 0 - 19 Weak Positive 20 - 30 Moderate to Strong Positive >30 Performed By: #### 3 [id number], 35462973, 6388880481, 7726635622, 3989298468, 9950183040, [id number] #### [facility] [address] [place] [address] IgA [Mass/Vol] 151 mg/dL Invalid Interpretation Code 87-352 [facility] Comment on above: Result Comment: Perf ormed at: [facility] [address] [id number] PhD Iglesia Baltazar Performed By: #### 3 [id number], [id number], 6411384704, 1180723235, [id number], [id number], [id number] #### [facility] [address] [place] [address] tTG IgA Qn (S) <2 Invalid Interpretation Code 0-3 [facility] Comment on above: Result Comment: Nega tive 0 - 3 Weak Positive 4 - 10 Positive >10 Tissue Transglutaminase (tTG) has been identified as the endomysial antigen. Studies have demonstr- ated that endomysial IgA antibodies have over 99% specificity for gluten sensitive enteropathy. Performed By: #### 3 [id number], 45716055, 6943768429, 5479679383, 2333959642, 1160045078, 67470158 #### [facility] [address] [place] [address] tTG IgG Qn (S) <2 Invalid Interpretation Code 0-5 [facility] Comment on above: Result Comment: Nega tive 0 - 5 Weak Positive 6 - 9 Positive >9 Performed By: #### 3 [id number], 55014151, 1308146771, 9163979368, 6205922220, 9800238235, 44506301 #### [facility] [address] [place] [address] Enteric Panel by PCRon 10-15 C. coli+jejuni+upsaliensis DNA JESSICA+non-probe Ql (Stl) Not detected Normal [facility] Comment on above: Result Comment: Test ing was performed utilizing reverse licensed embalmer (RT), polymerase chain reaction (PCR), and array hybridization to detect specific gastrointestinal microbial nucleic acid gene sequences associated with the following pathogenic bacteria and viruses:Campylobacter Group (composed of C. coli, C. jejuni, and C. meenu), Salmonella species, Shigella species (including S. dysenteriae, S. boydii, S. sonnei and S. flexneri), Vibrio Group (composed of V. cholera and V. parahaemolyticus), Yersinia enterocolitica, Norovirus GI/GII, and Rotavirus A. In addition, EPdetects Shiga toxin 1 gene and Shiga toxin 2 gene virulence markers. Shiga toxin producing E. coli (STEC) typically harbor one or both genes that encode for Shiga toxins 1 and 2. Campylobacter group, Salmonella species, Shigella species, Vibrio group, Rotavirus A, Shiga Toxin 1, Shiga Toxin 2, Norovirus GI/GII, and Yersinia enterocolitica were tested by Verigene nulcleic acid test. Performed By: #### 3 [id number], [id number], 9957833496, 7711503069, [id number], 6712092722, [id number] #### [facility] [address] [place] [address] E. coli stx1+stx2 genes JESSICA+non-probe Ql (Stl) Negative Normal [facility] Comment on above: Performed By: #### 3 [id number], 27773052, 1530543624, 9931933066, 8829157397, [id number], [id number] #### [facility] [address] [place] [address] Enteric Panel by PCR Negative Normal [facility] Enteric Panel Intrl QC Pass Normal [facility] Comment on above: Result Comment: Test ing was performed utilizing reverse licensed embalmer (RT), polymerase chain reaction (PCR), and array hybridization to detect specific gastrointestinal microbial nucleic acid gene sequences associated with the following pathogenic bacteria and viruses:Campylobacter Group (composed of C. coli, C. jejuni, and C. meenu), Salmonella species, Shigella species (including S. dysenteriae, S. boydii, S. sonnei and S. flexneri), Vibrio Group (composed of V. cholera and V. parahaemolyticus), Yersinia enterocolitica, Norovirus GI/GII, and Rotavirus A. In addition, EPdetects Shiga toxin 1 gene and Shiga toxin 2 gene virulence markers. Shiga toxin producing E. coli (STEC) typically harbor one or both genes that encode for Shiga toxins 1 and 2. Performed By: #### 3 [id number], 92010577, 4438401366, 1960743842, 3543513975, 9477710264, 15083406 #### [facility] [address] [place] [address] Norovirus genogroup I+II RNA JESSICA+non-probe Ql (Stl) Not detected Normal [facility] Comment on above: Performed By: #### 3 [id number], 45380788, 6519674059, 7528168867, 5979804651, 6873998562, 51303459 #### [facility] [address] [place] [address] Rotavirus A RNA JESSICA+non-probe Ql (Stl) Not detected Normal [facility] Comment on above: Performed By: #### 3 [id number], 83282830, 0899605159, 6983352548, 3884608679, 2855864519, 72956452 #### [facility] [address] [place] [address] S. enterica+bongori DNA JESSICA+non-probe Ql (Stl) Not detected Normal [facility] Comment on above: Result Comment: This test result should be correlated with clinical presentations and medical history by a healthcare provider to determine its clinical significance. Performed By: #### 3 [id number], 95096351, 7636671914, 0429896839, 4441643035, 7283887050, 84334749 #### [facility] [address] [place] [address] Shigella species+EIEC invasion plasmid antigen H ipaH gene JESSICA+non-probe Ql (Stl) Not detected Normal [facility] Comment on above: Performed By: #### 3 [id number], 97290641, 7856185019, 0532131179, 6788438899, 8661943927, 65082729 #### [facility] [address] [place] [address] V. cholerae+parahaemolyticu s+vulnificus DNA JESSICA+non-probe Ql (Stl) Not detected Normal [facility] Comment on above: Performed By: #### 3 [id number], 14183840, 6339583887, 7860126733, 8005582271, 3117870993, 35850661 #### [facility] [address] [place] [address] Y. enterocolitica DNA JESSICA+non-probe Ql (Stl) Not detected [facility] Comment on above: Performed By: #### 3 [id number], 49986690, 2967389676, 9565964345, 6493724516, 4102265876, 40415155 #### [facility] [address] [place] [address] CDiff PCRon 10-15-2023 C. difficile toxin A+B Ql (Stl) YES Normal [facility] Comment on above: Performed By: #### 3 [id number], 01428444, 0131964839, 9957596928, 6540254199, 3512452474, 24361133 #### [facility] [address] [place] [address] CDiff PCR Unable to perform te st due to consistency of stool. C. Difficile testing will only be performed on diarrheal (unformed) stool unless ileus due to C. difficile is expected. Reference: Clinical Practice Guidelines for Clostridium difficile Infection in Adults, Infection and Hospital Epidemiology October 2009, Vol 31, No 5. [facility] Consent for Treatmenton 09-24 Consent for Treatment [id number] [facility] Ambulatory Visit Summaryon 0 10-08-2023 Ambulatory Visit Summary TALIA RIVERA :1985 Visit Date:10/08/2023 Ambulatory Visit Instructions Your Diagnosis Abdominal bloating Fatigue Chronic diarrhea S/P cholecystectomy S/P hysterectomy Dyspareunia due to medical condition in female patient Early satiety Your Care Team Attending Physician - Emelina HARLEY, Elda Dewey Primary Care Physician - Malu Fisher MD This Is Your Medications List cholestyramine (Questran 4 g/9 g oral powder) Contact prescribing physician if questions or concerns escitalopram (Lexapro) pantoprazole (Protonix 40 mg Tab-DR) Procedures Performed section, Gallbladder, Hysterectomy. Discharge Vitals Heart Rate (Peripheral) 89 Respiratory Rate 16 Blood Pressure 124/83 Height 160 cm Height 63 in Weight 73.6 kg Weight 161.92 lb BMI 28.75 What to do next You Need to Complete the Following Calprotectin, Fecal, Stool, Routine collect, 10/08/23, Order for future visit, Nurse collect, Abdominal bloating Invalid Interpretation Code Chronic diarrhea [facility] Gastroenterology Office/Clin ic Noteon 10-08-2023 Gastroenterology Office/Clinic Note Chief Complaint ref by srikanth bloating, diarrhea, fatigue HPI Staff Patient is a 38 year old female who was referred by Srikanth for bloating and fatigue, nausea watery, oily diarrhea - some days its 8-9 times daily of diarrhea constant gas painful bowel movements. can not eat meals, takes about 3-5 bites. Hx of cholecystectomy 2017. Hx of hysterectomy 2021. Denies previous EGD/Colonoscopy. No fam. hx colon cancer. PCP ordered a CT and US of the abdomen - not completed yet. PCP note/referral states she is c/o fatigue and bloating. Cannot eat like she normally does . Having pain with intercourse but no other GI complaints. Previous work up: No previous stool or celiac testing. US RUQ 09/10/23 @ [facility]: Impression: Unremarkable sonographic appearance of the liver. Cholecystectomy. History of Present Illness I have reviewed HPI staff note, most recent labs and imaging, more than 30 minutes spent reviewing the chart, during encounter, placing orders and counseling the patient. PT with constant diarrhea no normal BM for a long time s/p efrain in 2018 PT with pain during bowel movements +++ bloating fatigue all the times pt could get gagging and nausea eating gluten and greasy food upsets her stomach Lots of issues with olive oil Pt used to drink etod when she was young Early satiety Review of Systems PHQ Score Initial Depression Screen Score: 0 SCORE All systems reviewed, negative except as mentioned above Physical Exam Vitals & Measurements HR: 89(Peripheral) RR: 16 BP: 124/83 HT: 63 in HT: 160 cm WT: 73.6 kg WT: 161.92 lb BMI: 28.75 General: alert, no acute distress HEENT: atraumatic normocephalic Cardiovascular: regular rate and rhythm, normal peripheral perfusion Respiratory: Lungs CTA, respirations non labored Extremities: no deformity, no trauma Abdomen: Benign, soft, tender nondistended Assessment/Plan 1. Abdominal bloating (R14.0: Abdominal distension (gaseous)) Ordered: cholestyramine, = 1 packet(s), Oral, TID, # 90 EA, Refills(s) 0, Pharmacy: [facility] #[id number], 160, cm, 10/08/23 14:31:00 EDT, Height/Length Dosing, 73.6, kg, 10/08/23 14:31:00 EDT, Weight Dosing Calprotectin, Fecal Celiac Disease Comprehensive Clostridium Difficile PCR Colonoscopy (Hospital Procedure) EGD Endoscopy (Hospital Procedure) Enteric Panel by PCR H. pylori Stool Ag O & P Exam, Routine Pancreatic Elastase, Fecal 2. Fatigue (R53.83: Other fatigue) Ordered: cholestyramine, = 1 packet(s), Oral, TID, # 90 EA, Refills(s) 0, Pharmacy: [facility] #[id number], 160, cm, 10/08/23 14:31:00 EDT, Height/Length Dosing, 73.6, kg, 10/08/23 14:31:00 EDT, Weight Dosing Calprotectin, Fecal Celiac Disease Comprehensive Clostridium Difficile PCR Colonoscopy (Hospital Procedure) EGD Endoscopy (Hospital Procedure) Enteric Panel by PCR H. pylori Stool Ag O & P Exam, Routine Pancreatic Elastase, Fecal 3. Chronic diarrhea (K52.9: Noninfective gastroenteritis and colitis, unspecified) Ordered: cholestyramine, = 1 packet(s), Oral, TID, # 90 EA, Refills(s) 0, Pharmacy: [facility] #[id number], 160, cm, 10/08/23 14:31:00 EDT, Height/Length Dosing, 73.6, kg, 10/08/23 14:31:00 EDT, Weight Dosing Calprotectin, Fecal Celiac Disease Comprehensive Clostridium Difficile PCR Colonoscopy (Hospital Procedure) EGD Endoscopy (Hospital Procedure) Enteric Panel by PCR H. pylori Stool Ag O & P Exam, Routine Pancreatic Elastase, Fecal 4. S/P cholecystectomy (Z90.49: Acquired absence of other specified parts of digestive tract) Ordered: cholestyramine, = 1 packet(s), Oral, TID, # 90 EA, Refills(s) 0, Pharmacy: [facility] #[id number], 160, cm, 10/08/23 14:31:00 EDT, Height/Length Dosing, 73.6, kg, 10/08/23 14:31:00 EDT, Weight Dosing Calprotectin, Fecal Celiac Disease Comprehensive Clostridium Difficile PCR Colonoscopy (Hospital Procedure) EGD Endoscopy (Hospital Procedure) Enteric Panel by PCR H. pylori Stool Ag O & P Exam, Routine Pancreatic Elastase, Fecal 5. S/P hysterectomy (Z90.710: Acquired absence of both cervix and uterus) Ordered: cholestyramine, = 1 packet(s), Oral, TID, # 90 EA, Refills(s) 0, Pharmacy: [facility] #[id number], 160, cm, 10/08/23 14:31:00 EDT, Height/Length Dosing, 73.6, kg, 10/08/23 14:31:00 EDT, Weight Dosing Calprotectin, Fecal Celiac Disease Comprehensive Clostridium Difficile PCR Colonoscopy (Hospital Procedure) EGD Endoscopy (Hospital Procedure) Enteric Panel by PCR H. pylori Stool Ag O & P Exam, Routine Pancreatic Elastase, Fecal 6. Dyspareunia due to medical condition in female patient (N94.19: Other specified dyspareunia) Ordered: cholestyramine, = 1 packet(s), Oral, TID, # 90 EA, Refills(s) 0, Pharmacy: [facility] #[id number], 160, cm, 10/08/23 14:31:00 EDT, Height/Length Dosing, 73.6, kg, 10/08/23 14:31:00 EDT, Weight Dosing Calprotectin, Fecal Celiac Disease Comprehensive Clostridium Difficile PCR Colonoscopy (Hospital Procedure) EGD Endoscopy ( (more content not included)... Normal [facility] Comment on above: Result Comment: Elec tronically Signed By: Emelina HARLEY, Elda Farrell.br\Date and Time Signed: 10/08/23 14:41 EDT US RENAL COMPLETEon 09-10-19 US RENAL COMPLETE US RUQ History: Bloating for 4 months. History of cholecystectomy. Technique: Sonography of the right upper quadrant was performed. Comparison: CT 03/10/2022 Result: Pancreas: Normal sonographic appearance of the visualized portions. Liver: Normal echogenicity, echotexture, surface contour. No focal lesion. Gallbladder: Cholecystectomy Biliary Ducts: No intrahepatic or extrahepatic bile duct dilation. CBD measures 0.7 cm. Right Kidney: See below. Ascites: None. IMPRESSION: Impression: Unremarkable sonographic appearance of the liver. Cholecystectomy. US RENAL COMPLETE History: Kidney stones Technique: Sonography of the kidneys and bladder was performed. Comparison: CT 03/10/2022. Result: Right Kidney: -Renal length: 8.7 cm. -Parenchyma: Normal echogenicity and normal thickness. -Collecting System: No hydronephrosis. -Calculus: Small calculi with the largest measuring 3 to 4 mm, similar to prior CT. -Lesion: None. Left Kidney: -Renal length: 9.5 cm. -Parenchyma: Normal echogenicity and normal thickness. -Collecting System: No hydronephrosis. -Calculus: No echogenic, shadowing calculus. -Lesion: None. Bladder: -Prevoid volume of 450 ml. -Postvoid volume of 0 ml, for postvoid residual of 0%. -Bilateral ureteral jets visualized. -No bladder wall thickening. Impression: Small nonobstructing right renal calculi, unchanged from prior CT. ELECTRONICALLY SIGNED BY: Ole Benjamin MD Normal Not Available US RUQon 09-10-2023 US RUQ US RUQ History: Bloating for 4 months. History of cholecystectomy. Technique: Sonography of the right upper quadrant was performed. Comparison: CT 03/10/2022 Result: Pancreas: Normal sonographic appearance of the visualized portions. Liver: Normal echogenicity, echotexture, surface contour. No focal lesion. Gallbladder: Cholecystectomy Biliary Ducts: No intrahepatic or extrahepatic bile duct dilation. CBD measures 0.7 cm. Right Kidney: See below. Ascites: None. IMPRESSION: Impression: Unremarkable sonographic appearance of the liver. Cholecystectomy. US RENAL COMPLETE History: Kidney stones Technique: Sonography of the kidneys and bladder was performed. Comparison: CT 03/10/2022. Result: Right Kidney: -Renal length: 8.7 cm. -Parenchyma: Normal echogenicity and normal thickness. -Collecting System: No hydronephrosis. -Calculus: Small calculi with the largest measuring 3 to 4 mm, similar to prior CT. -Lesion: None. Left Kidney: -Renal length: 9.5 cm. -Parenchyma: Normal echogenicity and normal thickness. -Collecting System: No hydronephrosis. -Calculus: No echogenic, shadowing calculus. -Lesion: None. Bladder: -Prevoid volume of 450 ml. -Postvoid volume of 0 ml, for postvoid residual of 0%. -Bilateral ureteral jets visualized. -No bladder wall thickening. Impression: Small nonobstructing right renal calculi, unchanged from prior CT. ELECTRONICALLY SIGNED BY: Ole Benjamin MD Normal Not Available Consent for Treatmenton 06-26 Consent for Treatment [id number]#[id number] Normal [facility] Discharge Instructionson Discharge Instructions [id number]#[id number] Normal [facility] ED Clinical Summaryon 2023 ED Clinical Summary (Inserted Image. Ursula ble to display) [place] [id number] ED Clinical Summary Person Information Name: TALIA RIVERA [facility] Age: 37 Years : 1985 Sex: Female Language: Azeri PCP: Malu Fisher MD Marital Status: Visit Id: Visit Reason: Wrist pain-swelling; Shoulder pain-swelling; RIGHT WRIST PAIN - FALL Speciality: Acuity: 4 Enc Type: Emergency Med Service: Emergency Arrival: 07/19/2023 12:12:38 Discharge: 07/19/2023 13:42:54 LOS: 000 01:30 Checkin: 07/19/2023 12:12:38 Checkout: 07/19/2023 13:42:54 Dispo Type: Home (Routine DC) EVENTS: Event Name Event Status Request Date/Time Start Date/Time Complete Date/Time Arrive Complete 07/19/2023 12:12:38 07/19/2023 12:12:38 07/19/2023 12:12:38 Document Home Meds Request 07/19/2023 12:12:38 Triage Complete 07/19/2023 12:12:38 07/19/2023 12:26:50 07/19/2023 12:26:50 X-Ray Complete 07/19/2023 12:30:17 07/19/2023 12:34:29 07/19/2023 12:55:39 Wet Read Request 07/19/2023 12:55:39 Dr Exam Complete 07/19/2023 13:14:43 07/19/2023 13:14:43 07/19/2023 13:14:43 Registration Complete 07/19/2023 13:14:43 07/19/2023 13:17:02 07/19/2023 13:33:58 Bed Assign Complete 07/19/2023 13:17:02 07/19/2023 13:17:02 07/19/2023 13:17:02 RN Exam Complete 07/19/2023 13:17:02 07/19/2023 13:32:12 07/19/2023 13:32:12 Meds Admin Complete 07/19/2023 13:27:20 07/19/2023 13:33:28 Reg Complete Request 07/19/2023 13:33:58 Reg Bed Request Complete 07/19/2023 13:33:58 07/19/2023 13:33:58 07/19/2023 13:33:58 Discharge Complete 07/19/2023 13:37:18 07/19/2023 13:43:08 07/19/2023 13:43:08 Transfer Complete 07/19/2023 13:43:08 07/19/2023 13:43:08 07/19/2023 13:43:08 ADDRESS: [address] [place] [phone] PHYS DOC NOTES: MEDICAL INFORMATION: Prescriptions Given: Medications to Continue with No Changes Other Medications dicyclomine (Bentyl) 20 Milligram. ondansetron (Zofran) pantoprazole (Protonix 40 mg Tab-DR) 1 Tablets By Mouth every day. Refills: 0. PATIENT EDUCATION INFORMATION: Instructions: Wrist Splint or Brace, Adult; Wrist Sprain, Adult; Shoulder Sprain Follow up: With: Address: When: [place] [address] Business (1) In 3 days 07/22/2023 Comments: If the pain does not get better in the next few days follow-up with Dr. Martell. If the pain gets worse or return to the emergency room. With: Address: When: Malu Fisher [address] [facility] [facility] [facility], [place] [address] Business (1) In 3 days DIAGNOSIS: 1:Right wrist sprain; 2:Sprain of right shoulder Normal [facility] ED Note-Physicianon 07-19-19 ED Note-Physician Basic Information Time Seen: Gaudencio Banuelos, Halley Rivera 07/19/2023 13:14 Chief Complaint Pt states that she tripped over a baby gate at like 10 this morning. Pt fell and landed on his right side. History of Present Illness The patient is a 37-year-old female who presented to the emergency room with right wrist pain and right shoulder pain. The patient states earlier this morning she tripped over a baby gate that she had for dog protection and she fell. The patient denies hitting her head. She is complaining of pain on the right wrist and mild pain on right shoulder. The patient denies any neck pain, denies any back pain. She denies taking any pain medication. She denies any other associated symptoms or any other complaints. Review of Systems Additional ROS info: Except as noted in the above Review of Systems and in the History of Present Illness all other systems have been reviewed and are negative or noncontributory. Physical Exam Vitals & Measurements T: 36.8 ?C(Oral) HR: 90(Peripheral) RR: 18 BP: 135/83 SpO2: 98% HT: 160.02 cm WT: 68.2 kg BMI: 26.63 General: alert, no acute distress Skin: warm, dry Head: no trauma, normocephalic Neck: Trachea midline, no tenderness Eye: normal conjunctiva, sclera clear Cardiovascular: regular rate and rhythm Respiratory: Lungs CTA, respirations non labored, breath sounds equal, Extremities: no deformity, there is mild swelling on the dorsal aspect of the right wrist. There is tenderness on the dorsal aspect of the right wrist. No tenderness in the snuffbox. Limited range of motion of the right wrist due to the pain. There is mild tenderness anterior to the shoulder. Full range of motion of the shoulder. Neurological: Alert and oriented, speech normal, no focal neuro deficits Psychiatric: cooperative, affect appropriate for age, Procedure Velcro thumb spica splint on the right wrist applied. Neurovascular was reexamined post-splint application was intact. Medical Decision Making MEDICAL DECISION MAKING Number and Complexity of Problems Differential Diagnosis: [] [facility] Data External documents reviewed: [] My EKG interpretation: [] My CT interpretation: [] My X-ray interpretation: [] My Ultrasound interpretation: [] Decision rules/scores evaluated: [] Discussed with: [] Treatment and Disposition ED Course: The patient presented with right wrist and right shoulder injury. More likely she sprained the wrist and shoulder. The x-ray shows no fracture no dislocation. The patient was given ibuprofen in the emergency room. She was placed on Velcro wrist splint. Will discharge patient home. She will take ibuprofen for pain [id number]. Will have her follow-up with with primary doctor and Ortho if her pain does not get any better. She is instructed to return to the emergency room if her pain gets worse or any new symptoms. Shared decision making: [] Code status: [] Assessment/Plan 1. Right wrist sprain (S63.501A: Unspecified sprain of right wrist, initial encounter) 2. Sprain of right shoulder (S43.401A: Unspecified sprain of right shoulder joint, initial encounter) Orders: ibuprofen, 600 mg = 1 tab(s), Tab, Oral, Once, Stop date 07/19/23 13:27:00 EST, STAT, Start date 07/19/23 13:27:00 EST, 07/19/23 13:27:00 EST Splint Application Wrist XR Shoulder Complete Right XR Wrist 3+ Views Right Medications Administered Given ibuprofen 600 mg Tab, 600 mg, Oral Disposition Plan Patient Discharge Condition Stable Discharge Disposition Discharge home Discharge Prescription List Prescriptions No active prescription medications Follow-up With When Contact Information Hari Martell In 3 days 07/22/2023 EST [address] [place] [address]- Business (1) Additional Instructions: If the pain does not get better in the next few days follow-up with Dr. Martell. If the pain gets worse or return to the emergency room. Malu Fisher In 3 days [address] [facility] [address] [place] [phone]- Business (1) Additional Instructions: Patient Education Wrist Splint or Brace, Adult Wrist Sprain, Adult Shoulder Sprain Problem List/Past Medical History Ongoing No qualifying data Historical No qualifying data Procedure/Surgical History section. Medications Inpatient No active inpatient medications Home Bentyl, 20 mg Protonix 40 mg Tab-DR, 40 mg= 1 tab(s), Oral, Daily Zofran Allergies ciprofloxacin (Hives) Social History Alcohol - Denies Alcohol Use, 07/19/2023 Substance Abuse - Denies Substance Abuse, 07/19/2023 Tobacco - High Risk, 07/19/2023 Lab Results No qualifying data available. Diagnostic Results XR Shoulder Complete Right * Preliminary * 07/19/23 13:14:52 : No fracture, dislocation or other acute abnormality Read By: Halley Ratliff M.D. XR Wrist 3+ Views Right * Preliminary (more content not included)... Normal [facility] Comment on above: Result Comment: Elec tronically Signed By: Halley Ratliff M.D.\.br\Date and Time Signed: 07/19/23 13:39 EST ED Patient Education Noteon 07-19-2023 ED Patient Education Note Orthopedics Wrist Splint or Brace, Adult A wrist splint or brace is a device that prevents your wrist from moving. A splint supports your wrist like a cast, but is more flexible and can be adjusted more easily than a cast. A wrist brace provides support as well but is generally less rigid. A brace is given for termination clerk use while a splint is given for [...] wrist splint or brace may be worn: ? To support your wrist. ? To protect your injury. ? To prevent further injury. ? To prevent movement. ? To reduce pain. ? To help with healing. It is important [...] and can cause permanent damage. Symptoms include: ? Pain that is getting worse. ? Tingling and numbness. ? Changes in skin color, including paleness or a bluish color. ? Cold fingers. Other problems can include: ? Skin irritation that can cause itching, rash, skin sores, or skin infection. ? Wrist stiffness. This can occur if you have worn a splint for a long time. ? Wrist weakness. How to wear your wrist [...] brace and how long to wear it. ? Wear the splint or brace as told by your health care provider. Remove it only as told by your health care provider. ? Loosen the splint or brace if your fingers tingle, become numb, or turn cold and blue. ? Do not stick anything inside the splint or brace to scratch your skin. Doing that increases your risk of infection. ? Check the skin under the splint or brace for any redness or blisters every time you take off the splint. Tell your health care provider about any concerns. ? Keep the splint clean. ? If the splint or brace is not waterproof: ? Do not let it get wet. ? Cover it with a watertight covering when you take a bath or a shower. General recommendations ? Do not put pressure on any part of the splint until it is fully hardened. This may take several hours. ? Follow directions from your health care provider or the splint medical translator for cleaning and caring for your splint or brace. It is important to clean it regularly. Make sure it is completely dry before putting in on. Follow these instructions at home: Managing pain, stiffness, and swelling ? If directed, put ice on the injured area. ? If you a have a removable splint or brace, remove it as told by your health care provider. ? Put ice in a plastic bag. ? Place a towel between your skin and the bag. ? Leave the ice on for 20 minutes, 2?3 times a day. ? Remove the ice if your skin turns bright red. This is very important. If you cannot feel pain, heat, or cold, you have a greater risk of damage to the area. ? Move your fingers often to avoid stiffness and to lessen swelling. ? Raise the injured area above the level of your heart while you are sitting or lying down. Activity ? Do exercises as told by your health care provider. ? Ask your health care provider when it is safe to drive with a splint or brace on your wrist. ? Return to your normal activities as told by your health care provider. Ask your health care provider what activities are safe for you. General instructions ? Do not use the injured hand to do heavy work, such as lifting, pulling, or pushing. ? Do not use any products that contain nicotine or tobacco, such as cigarettes, e-cigarettes, and chewing tobacco. These can delay bone healing. If you need help quitting, ask your health care provider. ? Take uxpw-gup-edfreun and prescription medicines only as told by your health care provider. ? Keep all follow-up visits. This is important. Contact a health care provider if: ? You have wrist pain or swelling that does not go away. ? The skin around or under your splint becomes red, itchy, or moist. ? You have chills or a fever. ? Your splint or brace feels too tight or too loose. ? Your splint or brace gets damaged. Get help right away if: ? You have pain that is getting worse. ? You have (more content not included)... Normal [facility] ED Patient Summaryon 024 ED Patient Summary (Inserted Image. Ursula ble to display) [place] [id number] Patient Discharge Instructions Person Information Name: TALIA RIVERA Age: 37 Years Arrival Date: 07/19/2023 12:12:38 Discharge Diagnosis: 1:Right wrist sprain; 2:Sprain of right shoulder Primary Care Physician: Malu Fisher MD Provider Information Primary Provider: Halley Ratliff M.D. Advanced Digital Solutions Architect:None The exam and treatment you received in the Emergency Department were for an urgent problem and are not intended as complete care. It is important that you follow up with a doctor, nurse practitioner, or physician?s records management assistant for ongoing care. If your symptoms become worse or you do not improve as expected and you are unable to reach your usual health care provider, you should return to the Emergency Department. We are available 24 hours a day. TALIA RIVERA has been given the following list of patient education materials, prescriptions and follow-up instructions: Follow-up Instructions: With: Address: When: Hari Martell [address] [place], [place] [id number] Business (1) In 3 days 07/22/2023 Comments: If the pain does not get better in the next few days follow-up with Dr. Martell. If the pain gets worse or return to the emergency room. With: Address: When: Malu Fisher [address] [place] [address] [place] [phone] Business (1) In 3 days In the event that this physician does not participate in your insurance network, please consult with your insurance company to find a nearby participating provider. Patient Education Materials: Wrist Splint or Brace, Adult; Wrist Sprain, Adult; Shoulder Sprain A MESSAGE TO ALL PATIENTS REGARDING OPIOIDS PRESCRIPTION OPIOIDS: WHAT YOU NEED TO KNOW Prescription opioids can be used to help relieve lwiulwto-cx-pjsruy pain and are often prescribed following a surgery or injury, or for certain health conditions. These medications can be an important part of the treatment but also come with serious risks. It is important to work with your healthcare provider to make sure you are getting the safest, most effective care. WHAT ARE THE RISKS AND SIDE EFFECTS OF OPIOID USE? Prescription opioids carry serious risks of addiction and overdose, especially with prolonged use. An opioid overdose, often marked by slowed breathing, can cause sudden . The use of prescription opioids can have a number of side effects as well, even when taken as directed: ? Tolerance?meaning you might need to take more of the medication for the same pain relief ? Physical dependence?meaning you have symptoms of withdrawal when a medication is stopped ? Increased sensitivity to pain ? Constipation ? Nausea, vomiting, and dry mouth ? Sleepiness and dizziness ? Confusion ? Depression ? Low levels of testosterone that can result in lower sex drive, energy, and strength ? Itching and sweating RISKS ARE GREATER WITH: ? History of drug misuse, substance use disorder, or overdose ? Mental health conditions (such as depression or anxiety) ? Sleep apnea ? Older age (65 years and older) ? Avoid alcohol while taking prescription opioids. Also, unless specifically advised by your health care provider, medications to avoid include: ? Benzodiazepines (such as Xanax or Valium) ? Muscle relaxants (such as Soma or Flexeril) ? Hypnotics (such as Ambien or Lunesta) ? Other prescription opioids KNOW YOUR OPTIONS Talk to your health care provider about ways to manage your pain that don?t involve prescription opioids. Some of these options may actually work better and have fewer risks and side effects. Options may include: ? Pain relievers such as acetaminophen, ibuprofen, and naproxen ? Some medication that are also used for depression or seizures ? Physical therapy and exercise ? Cognitive behavioral therapy, a psychological, goal-directed approach, in which patients learn how to modify physical, behavioral, and emotional triggers of pain and stress. IF YOU ARE PRESCRIBED OPIOIDS FOR PAIN: ? Never take opioids in greater amounts or more often than prescribed. ? Follow up with your primary health care provider. o Work together to create a plan on how to manage your pain. o Talk about ways to help manage your pain that don?t involve prescription opioids. o Talk about any and all concerns and side effects. ? Help prevent misuse and abuse o Never sell or share prescription opioids. o Never use another person?s prescription opioids. ? Store prescription opioids in a secure place and out of reach of others (this may include visitors, children, friends, and family). ? Safely dispose of unused prescription opioids: Find your community drug take-back program or your pharmacy mail-back program, or flush them down the toilet, following guidance from the Food and Drug Ad (more content not included)... Normal [facility] XR Shoulder Complete Righton 07-19-2023 XR Shoulder Complete Right Exam Date/Time: 07/19/2023 12:55 EST Reason for Exam: Pain, Traumatic Report IMPRESSION: No acute findings. EXAMINATION/TECHNIQUE: XR Shoulder Complete Right HISTORY: Right shoulder pain. Fall. COMPARISON: None RESULT: No evidence for acute fracture. No dislocation. Glenohumeral and acromioclavicular joint spaces appear maintained. Visualized thorax unremarkable. Soft tissues unremarkable. No other significant abnormality. Ordering Provider: Halley Ratliff FINAL REPORT Dictated: 07/19/2023 1:38 pm Ole Benjamin MD. Signed (Electronic Signature): 07/19/2023 1:38 pm Signed by: Ole Benjamin MD Transcribed by: FANNY Technologist: KEVIN Technical Comments Radiation Dose: Ka,r in mGy = na DAP = na Normal [facility] XR Wrist 3+ Views Righton XR Wrist 3+ Views Right Exam Date/Time: 07/19/2023 12:55 EST Reason for Exam: Pain, Traumatic Report IMPRESSION: Punctate density adjacent to the ulnar styloid as discussed. EXAMINATION/TECHNIQUE: XR Wrist 3+ Views Right HISTORY: Fall with right wrist pain. COMPARISON: None RESULT: Punctate density near the ulnar styloid, with differential including tiny avulsed fracture fragment versus accessory ossicle. Correlate with point tenderness. Otherwise no evidence for fracture. No dislocation. Soft tissues unremarkable. No other significant abnormality. Ordering Provider: Halley Ratliff FINAL REPORT Dictated: 07/19/2023 1:39 pm Ole Benjamin MD Signed (Electronic Signature): 07/19/2023 1:39 pm Signed by: Ole Benjamin MD Transcribed by: FANNY Technologist: KEVIN Technical Comments Radiation Dose: Ka,r in mGy = na DAP = na Normal [facility] CBC AUTO DIFFon 11-07-2022 BASO # 0.0 103/ul Normal 0.0-0.1 [facility] Comment on above: Performed By: #### C BC #### [facility] [address] [place] [address] Dr. Javy Jack Basophils/100 WBC (Bld) 0.4 % Normal 0.2-2.0 [facility] Comment on above: Performed By: #### C BC #### [facility] [address] [place] [address] Dr. Javy Jack EO # 0.2 103/ul Normal 0.0-0.7 [facility] Comment on above: Performed By: #### C BC #### [facility] [address] [place] [address] Dr. Javy Jack Eosinophils/100 WBC (Bld) 2.0 % Normal 0.9-7.0 [facility] Comment on above: Performed By: #### C BC #### [facility] [address] [place] [address] Dr. Javy Jack Erythrocyte distribution width (RBC) [Ratio] 12.5 % Normal 11.0-15.0 [facility] Comment on above: Performed By: #### C BC #### [facility] [address] [place] [address] Dr. Javy Jack Hematocrit (Bld) [Volume fraction] 43.7 % Normal 36.0-48.0 [facility] Comment on above: Performed By: #### C BC #### [facility] [address] [place] [address] Dr. Javy Jack Hemoglobin (Bld) [Mass/Vol] 14.2 g/dL Normal 12.0-16.0 [facility] Comment on above: Performed By: #### C BC #### [facility] [address] [place] [address] Dr. Javy Jack IG # 0.01 10e3/ul Normal 0.00-0.03 [facility] Comment on above: Performed By: #### C BC #### [facility] [address] [place] [address] Dr. Javy Jack IG % 0.1 % Normal 0.0-0.5 [facility] Comment on above: Performed By: #### C BC #### [facility] [address] [place] [address] Dr. Javy Jack LYMPH # 2.5 103/ul Normal 1.2-3.8 [facility] Comment on above: Performed By: #### C BC #### [facility] [address] [place] [address] Dr. Javy Jack Lymphocytes/100 WBC (Bld) 33.8 % Normal 20.5-60.0 [facility] Comment on above: Performed By: #### C BC #### [facility] [address] [place] [address] Dr. Javy Jack MANUAL DIFF REQ NO Normal [facility] Comment on above: Performed By: #### C BC #### [facility] [address] [place] [address] Dr. Javy Jack MCH (RBC) [Entitic mass] 30.1 pg Normal 26.7-34.0 [facility] Comment on above: Performed By: #### C BC #### [facility] [address] [place] [address] Dr. Javy Jack MCHC (RBC) [Mass/Vol] 32.5 g/dL Normal 29.9-35.2 [facility] Comment on above: Performed By: #### C BC #### [facility] [address] [place] [address] Dr. Javy Jack MCV (RBC) [Entitic vol] 92.8 fL Normal 81.0-99.0 [facility] Comment on above: Performed By: #### C BC #### [facility] [address] [place] [address] Dr. Javy Jack MONO # 0.7 103/ul Normal 0.3-0.8 [facility] Comment on above: Performed By: #### C BC #### [facility] [address] [place] [address] Dr. Javy Jack Monocytes/100 WBC (Bld) 9.3 % Normal 1.7-12.0 [facility] Comment on above: Performed By: #### C BC #### [facility] [address] [place] [address] [address] Javy Jack NEUT # 4.1 103/ul Normal 1.4-6.5 [facility] Comment on above: Performed By: #### C BC #### [facility] [address] [place] [address] Dr. Javy Jack Neutrophils/100 WBC (Bld) 54.4 % Normal 43.0-75.0 [facility] Comment on above: Performed By: #### C BC #### [facility] [address] [place] [address] Dr. Javy Jack Platelet mean volume (Bld) [Entitic vol] 10.1 fL Normal 9.5-13.5 [facility] Comment on above: Performed By: #### C BC #### [facility] [address] [place] [address] Dr. Javy Jack PLT 366 103/ul Normal 150-450 [facility] Comment on above: Performed By: #### C BC #### [facility] [address] [place] [address] Dr. Javy Jack RBC 4.71 106/ul Normal 4.20-5.40 [facility] Comment on above: Performed By: #### C BC #### [facility] [address] [place] [address] Dr. Javy Jack WBC 7.5 103/ul Normal 4.0-11.0 [facility] Comment on above: Performed By: #### C BC #### [facility] [address] [place] [address] ABD/PELVIS WO CONon [...] enlargement of the right kidney. Mild right hydroureteronephrosis extending to a 3 mm stone in [...] CHRISTINA GAUTHIER Date: 2022-11-07 09:05 Normal [facility] ER URINE PROFILEon 3 Bilirubin Ql (U) Negative Normal NEGATIVE [facility] Comment on above: Performed By: #### SERA DARBY #### [facility] [address] [place] [address] Dr. Javy Jack Clarity (U) CLEAR Normal CLEAR [facility] Comment on above: Performed By: #### SERA DARBY #### [facility] [address] [place] [address] Dr. Javy Jack Color (U) YELLOW Normal YELLOW [facility] Comment on above: Performed By: #### SERA DARBY #### [facility] [address] [place] [address] Dr. Javy Jack ERUKEI A micrscopic examina tion will be performed if indicated. Normal [facility] Comment on above: Performed By: #### SERA DARBY #### [facility] [address] [place] [address] Dr. Javy Jack Glucose Ql (U) Negative Normal NEGATIVE [facility] Comment on above: Performed By: #### SERA DARBY #### [facility] [address] [place] [address] Dr. Javy Jack Hemoglobin Ql (U) MODERATE Abnormal NEGATIVE [facility] Comment on above: Performed By: #### E RUR, UMICRO #### [facility] [address] [place] [address] Dr. Javy Jack Ketones Ql (U) TRACE Abnormal NEGATIVE [facility] Comment on above: Performed By: #### E RUR, UMICRO #### [facility] [address] [place] [address] Dr. Javy Jack LEUKOCYTES Negative Normal NEGATIVE [facility] Comment on above: Performed By: #### E RUR, UMICRO #### [facility] [address] [place] [address] Dr. Javy Jack Nitrite Ql (U) Negative Normal NEGATIVE [facility] Comment on above: Performed By: #### E HEBER, UMICRO #### [facility] [address] [place] [address] Dr. Javy Jack pH (U) 5.5 [pH] Normal 5-9 [facility] Comment on above: Performed By: #### E HEBER, UMICRO #### [facility] [address] [place] [address] Dr. Javy Jack SPEC GRAVITY >=1.030 Abnormal 1.005-<=1. 025 [facility] Comment on above: Performed By: #### Harika BUCK, UMICRO #### [facility] [address] [place] [address] Dr. Javy Jack UA PROTEIN Negative Normal NEGATIVE/ TRACE [facility] Comment on above: Performed By: #### E RUR, UMICRO #### [facility] [address] [place] [address] Dr. Javy Jack UR MICRO IND INDICATED Normal [facility] Comment on above: Performed By: #### E RUR, UMICRO #### [facility] [address] [place] [address] Dr. Javy Jack Urobilinogen Qn (U) 0.2 {Felecia'U}/dL Normal 0.2 - 1. 0 [facility] Comment on above: Performed By: #### E RUR, UMICRO #### [facility] [address] [place] [address] Dr. Javy Jack URINE MICROSCOPIC ONLYon BACTERIA TRACE Abnormal NONE SEEN [facility] Comment on above: Performed By: #### Harika BUCK, UMICRO #### [facility] [address] [place] [address] Dr. Javy Jack Bacteria identified Cx Nom (U) NOT INDICATED Normal [facility] Comment on above: Performed By: #### Harika BUCK, UMICRO #### [facility] [address] [place] [address] Dr. Javy Jack CAST NONE SEEN Normal NONE SEEN [facility] Comment on above: Performed By: #### Harika BUCK UMICRO #### [facility] [address] [place] [address] Dr. Javy Jack Crystals LM Nom (Urine sed) NONE SEEN Normal NONE SEEN [facility] Comment on above: Performed By: #### Harika BUCK UMICRO #### [facility] [address] [place] [address] Dr. Javy Jack Epithelial cells LM Ql (Urine sed) FEW Abnormal NONE SEEN /RARE [facility] [facility] Comment on above: Performed By: #### Harika BUCK UMICRO #### [facility] [address] [place] [address] Dr. Javy Jack MUCOUS TRACE Abnormal NONE SEEN [facility] Comment on above: Performed By: #### Harika BUCK UMICRO #### [facility] [address] [place] [address] Dr. Javy Jack RBC 5-10 Abnormal 0-2 [facility] Comment on above: Performed By: #### Harika BUCK UMICRO #### [facility] [address] [place] [address] Dr. Javy Jack WBC NONE SEEN Normal NONE SEEN [facility] Comment on above: Performed By: #### Harika BUCK UMICRO #### [facility] [address] [place] [address] Dr. Javy Jack MG MAMM SCREEN 3D YEISON CADon 08-04-2022 MG MAMM SCREEN 3D YEISON CAD Patient: TALIA ARENAS Exam Date: 08/04/2022 : 1985 Gender:F Ordering : DR MALU FISHER . Admission #: [id number] Family : Order #: [id number] CLICK HERE TO VIEW EXAM RADIOLOGY REPORT PROCEDURE: MAMMOGRAM SCREENING 3D BILATERAL CAD COMPARISON: None. INDICATIONS: Screening mammography Calculator Name NCI Breast Cancer Risk Assessment Tool 5 Year Breast Cancer Risk Not Reported. Lifetime Breast Cancer Risk Not Reported. Personal Breast Cancer No Personal Ovarian Cancer No Treatments None Family Cancers None LOCATION: [facility] BREAST COMPOSITION: Heterogeneously dense,which may obscure small [...] MD on 08/04/2022 at 13:44 Normal [facility] INSULINon 07-19-2022 Insulin 23.9 uIU/mL Normal 2.6-24.9 [facility] Comment on above: Performed By: #### I NSULIN ####[facility] [address] [place], [place] [address]MpDr. Javy Jack CBC AUTO DIFFon 07-18-2022 BASO # 0.0 103/ul Normal 0.0-0.1 [facility] Comment on above: Performed By: #### C BC #### [facility] [address] [address] [address] Javy Jack Basophils/100 WBC (Bld) 0.4 % Normal 0.2-2.0 [facility] Comment on above: Performed By: #### C BC #### [facility] [address] [place], [place] [address] Dr. Javy Jack EO # 0.1 103/ul Normal 0.0-0.7 [facility] Comment on above: Performed By: #### C BC #### [facility] [address] [place] [address] Dr. Javy Jack Eosinophils/100 WBC (Bld) 1.9 % Normal 0.9-7.0 [facility] Comment on above: Performed By: #### C BC #### [facility] [address] [place] [address] Dr. Javy Jack Erythrocyte distribution width (RBC) [Ratio] 12.4 % Normal 11.0-15.0 [facility] Comment on above: Performed By: #### C BC #### [facility] [address] [place] [address] Dr. Javy Jack Hematocrit (Bld) [Volume fraction] 42.5 % Normal 36.0-48.0 [facility] Comment on above: Performed By: #### C BC #### [facility] [address] [place] [address] Dr. Javy Jack Hemoglobin (Bld) [Mass/Vol] 14.1 g/dL Normal 12.0-16.0 [facility] Comment on above: Performed By: #### C BC #### [facility] [address] [place] [address] Dr. Javy Jack IG # 0.02 10e3/ul Normal 0.00-0.03 [facility] Comment on above: Performed By: #### C BC #### [facility] [address] [place] [address] Dr. Javy Jack IG % 0.3 % Normal 0.0-0.5 [facility] Comment on above: Performed By: #### C BC #### [facility] [address] [place] [address] Dr. Javy Jack LYMPH # 1.9 103/ul Normal 1.2-3.8 [facility] Comment on above: Performed By: #### C BC #### [facility] [address] [place] [address] Dr. Javy Jack Lymphocytes/100 WBC (Bld) 28.0 % Normal 20.5-60.0 [facility] Comment on above: Performed By: #### C BC #### [facility] [address] [place] [address] Dr. Javy Jack MANUAL DIFF REQ NO Normal [facility] Comment on above: Performed By: #### C BC #### [facility] [address] [place] [address] Dr. Jayv Jack MCH (RBC) [Entitic mass] 29.6 pg Normal 26.7-34.0 [facility] Comment on above: Performed By: #### C BC #### [facility] [address] [place] [address] Dr. Javy Jack MCHC (RBC) [Mass/Vol] 33.2 g/dL Normal 29.9-35.2 [facility] Comment on above: Performed By: #### C BC #### [facility] [address] [place] [address] Dr. Javy Jack MCV (RBC) [Entitic vol] 89.1 fL Normal 81.0-99.0 [facility] Comment on above: Performed By: #### C BC #### [facility] [address] [place] [address] Dr. Javy Jack MONO # 0.6 103/ul Normal 0.3-0.8 [facility] Comment on above: Performed By: #### C BC #### [facility] [address] [place] [address] Dr. Javy Jack Monocytes/100 WBC (Bld) 8.6 % Normal 1.7-12.0 [facility] Comment on above: Performed By: #### C BC #### [facility] [address] [place] [address] Dr. Javy Jack NEUT # 4.1 103/ul Normal 1.4-6.5 [facility] Comment on above: Performed By: #### C BC #### [facility] [address] [place] [address] Dr. Javy Jack Neutrophils/100 WBC (Bld) 60.8 % Normal 43.0-75.0 [facility] Comment on above: Performed By: #### C BC #### [facility] [address] [place] [address] Dr. Javy Jack Platelet mean volume (Bld) [Entitic vol] 9.6 fL Normal 9.5-13.5 [facility] Comment on above: Performed By: #### C BC #### [facility] [address] [place] [address] Dr. Javy Jack PLT 359 103/ul Normal 150-450 [facility] Comment on above: Performed By: #### C BC #### [facility] [address] [address] [address] Javy Jack RBC 4.77 106/ul Normal 4.20-5.40 [facility] Comment on above: Performed By: #### C BC #### [facility] [address] [place] [address] Dr. Javy Jack WBC 6.8 103/ul Normal 4.0-11.0 [facility] Comment on above: Performed By: #### C BC #### [facility] [address] [place] [address] Dr. Javy Jack FREE THYROXINE INDEX T7on FTI 3.07 Normal 1.30-4.50 [facility] Comment on above: Performed By: #### T SH, T7, LIPID, CMP #### [facility] [address] [place] [address] Dr. Javy Jack T3U 33.0 % Normal 30.0-39.0 [facility] Comment on above: Performed By: #### T SH, T7, LIPID, CMP #### [facility] [address] [place] [address] Dr. Javy Jack T4 [Mass/Vol] 9.30 ug/dL Normal 4.80-13.90 [facility] Comment on above: Performed By: #### T SH, T7, LIPID, CMP #### [facility] [address] [place] [address] Dr. Javy Jack GLYCOHEMOGLOBIN A1Con 2022 ADA RECOMMENDATION SEE BELOW Normal [facility] Comment on above: Result Comment: ADA RECOMMENDED LIMIT 4.0 - 6.0 ADA THERAPEUTIC TARGET < 7.0 ACTION SUGGESTED > 7.0 Performed By: #### A 1C #### [facility] [address] [place] [address] Dr. Javy Jack Glucose [Mass/Vol] 108 mg/dL Normal [facility] Comment on above: Performed By: #### A 1C #### [facility] [address] [place] [address] Dr. Javy Jack HbA1c (Bld) [Mass fraction] 5.4 % Normal 4.5-6.2 [facility] Comment on above: Performed By: #### A 1C #### [facility] [address] [place] [address] Dr. Javy Jack IRONon 07-18-2022 Iron [Mass/Vol] 92.0 ug/dL Normal 50.0-170.0 [facility] Comment on above: Performed By: #### I MILAGROS #### [facility] [address] [place] [address] Dr. Javy Jack LIPID PROFILEon 07-18-2022 CHOL-HDL RATIO NORM SEE BELOW Normal [facility] Comment on above: Result Comment: 3.3 - 4.4 LOW RISK 4.4 - 7.1 AVERAGE RISK 7.1 - 11.0 MODERATE RISK >11.0 HIGH RISK Performed By: #### T SH, T7, LIPID, CMP #### [facility] [address] [place] [address] Dr. Javy Jack Cholesterol [Mass/Vol] 162 mg/dL Normal <=200 Th [facility] Comment on above: Performed By: #### T SH, T7, LIPID, CMP #### [facility] [address] [place] [address] Dr. Javy Jack Cholesterol in HDL [Mass/Vol] 51 mg/dL Normal 40-60 [facility] Comment on above: Performed By: #### T SH, T7, LIPID, CMP #### [facility] [address] [place] [address] Dr. Javy Jack Cholesterol in LDL [Mass/Vol] 89.6 mg/dL Normal [facility] Comment on above: Performed By: #### T SH, T7, LIPID, CMP #### [facility] [address] [address] [address] Javy Jack Cholesterol.total/Choles terol in HDL [Mass ratio] 3.2 {ratio} Normal [facility] Comment on above: Performed By: #### T SH, T7, LIPID, CMP #### [facility] [address] [address] [address] Javy Jack HDL NORMAL > or = 60 mg/dl - LO W CARDIOVASCULAR RISK <40 mg/dl - HIGH CARDIOVASCULAR RISK Normal [facility] Comment on above: Performed By: #### T SH, T7, LIPID, CMP #### [facility] [address] [address] [address] Javy Jack LDL CALC NORMAL SEE BELOW Normal [facility] Comment on above: Result Comment: <100 mg/dl OPTIMAL 100 - 129 mg/dl NEAR OR ABOVE OPTIMAL 130 - 159 mg/dl BORDERLINE HIGH 160 - 189 mg/dl HIGH >190 mg/dl VERY HIGH Performed By: #### T SH, T7, LIPID, CMP #### [facility] [address] [address] [address] Javy Jack Triglyceride [Mass/Vol] 107 mg/dL Normal <=150 T [facility] Comment on above: Performed By: #### T SH, T7, LIPID, CMP #### [facility] [address] [address] [address] Javy Jack VLDL CALC 21.4 mg/dL Normal [facility] Comment on above: Performed By: #### T SH, T7, LIPID, CMP #### [facility] [address] [address] [address] Javy Jack PROF 14(COMP METB)on 023 Albumin [Mass/Vol] 3.7 g/dL Normal 3.4-5.0 [facility] Comment on above: Performed By: #### T SH, T7, LIPID, CMP ####[facility] [address] [address]Dr. Javy Jack Albumin/Globulin [Mass ratio] 1.1 {ratio} Normal [facility] Comment on above: Performed By: #### T SH, T7, LIPID, CMP ####[facility] [address] [address]Dr. Javy Jack ALP [Catalytic activity/Vol] 109 U/L Normal 46-116 [facility] Comment on above: Performed By: #### T SH, T7, LIPID, CMP ####[facility] [address] [address]Dr. Javy Jack ALT [Catalytic activity/Vol] 33 U/L Normal 14-59 [facility] Comment on above: Performed By: #### T SH, T7, LIPID, CMP ####[facility] [address] [address]Dr. Javy Jack Anion gap [Moles/Vol] 12.6 mmol/L Normal Th [facility] Comment on above: Performed By: #### T SH, T7, LIPID, CMP ####[facility] [address] [place], [place] [address]Dr. Javy Jack AST [Catalytic activity/Vol] 15 U/L Normal 15-37 [facility] Comment on above: Performed By: #### T SH, T7, LIPID, CMP ####[facility] [address] [place], [place] [address]Dr. Javy Jack Bilirubin [Mass/Vol] 0.3 mg/dL Normal 0.2-1.0 [facility] Comment on above: Performed By: #### T SH, T7, LIPID, CMP ####[facility] [address] [place], [place] [address]Dr. Javy Jack Calcium [Mass/Vol] 9.0 mg/dL Normal 8.5-10.1 [facility] Comment on above: Performed By: #### T SH, T7, LIPID, CMP ####[facility] [address] [place], [place] [address]Dr. Javy Jack Chloride [Moles/Vol] 102 mmol/L Normal 98-107 [facility] Comment on above: Performed By: #### T SH, T7, LIPID, CMP ####[facility] [address] [place], [place] [address]Dr. Javy Jack CO2 [Moles/Vol] 27.1 mmol/L Normal 21.0-32.0 [facility] Comment on above: Performed By: #### T SH, T7, LIPID, CMP ####[facility] [address] [place], [place] [address]Dr. Javy Jack Creatinine [Mass/Vol] 0.61 mg/dL Normal 0.55-1.02 [facility] Comment on above: Performed By: #### T SH, T7, LIPID, CMP ####[facility] [address] [place], [place] [address]Dr. Javy Jack EGFR-AF NIGERIAN >60 Normal >=60 [facility] Comment on above: Performed By: #### T SH, T7, LIPID, CMP ####[facility] [address] [place], [place] [address]Dr. Javy Jack EGFR-NON AF NIGERIAN >60 Normal >=60 [facility] Comment on above: Performed By: #### T SH, T7, LIPID, CMP ####[facility] [address] [place], [place] [address]Dr. Javy Jack Globulin (S) [Mass/Vol] 3.3 g/dL Normal [facility] Comment on above: Performed By: #### T SH, T7, LIPID, CMP ####[facility] [address] [place], [place] [address]Dr. Javy Jack Glucose [Mass/Vol] 122 mg/dL Critically high 74-106 [facility] Comment on above: Performed By: #### T SH, T7, LIPID, CMP ####[facility] [address] [place], [place] [address]Dr. Javy Jack Potassium [Moles/Vol] 3.7 mmol/L Normal 3.5-5.1 [facility] Comment on above: Performed By: #### T SH, T7, LIPID, CMP ####[facility] [address] [place], [place] [address]Dr. Javy Jack Protein [Mass/Vol] 7.0 g/dL Normal 6.4-8.2 [facility] Comment on above: Performed By: #### T SH, T7, LIPID, CMP ####[facility] [address] [address]Dr. Javy Jack Sodium [Moles/Vol] 138 mmol/L Normal 136-145 [facility] Comment on above: Performed By: #### T SH, T7, LIPID, CMP ####[facility] [address] [address]Dr. Javy Jack Urea nitrogen [Mass/Vol] 9.0 mg/dL Normal 7.0-18.0 [facility] Comment on above: Performed By: #### T SH, T7, LIPID, CMP ####[facility] [address] [address]Dr. Javy Jack Urea nitrogen/Creatinine [Mass ratio] 14.8 mg/mg Normal [facility] Comment on above: Performed By: #### T SH, T7, LIPID, CMP ####[facility] [address] [address]Dr. Javy Jack TSHon 07-18-2022 TSH 1.115 uIU/mL Normal 0.358-3.74 0 [facility] Comment on above: Performed By: #### T SH, T7, LIPID, CMP ####[facility] [address] [address]Dr. Javy Jack [facility] SARS-CoV-2 (COVID-19) RNA JESSICA+probe Ql (Unsp spec) Not detected Normal NOT DETECTED [facility] Comment on above: Result Comment: When diagnostic [...] for this test is supported by the Personnel Clerk of Health and Human Service's declaration that [...] be used). Performed By: #### C VDTBH ####[facility] [address] [place], [place] [address]Dr. Javy Jack INFLUENZA A AND B AGon 07-13 INFLUANEGH SEE BELOW Normal [facility] Comment on above: Result Comment: Nega tive for Flu A protein angiten. Infection due to Flu A cannot be ruled out. Flu A angiten in the sample may be below the detection limit of the test. Performed By: #### I NFLUAB ####[facility] [address] [place], [place] [address]Dr. Javy Jack INFLUBNEGH SEE BELOW Normal [facility] Comment on above: Result Comment: Nega tive for Flu B protein antigen. Infection due to Flu B cannot be ruled out. Flu B antigen in the sample may be below the detection limit of the test. Performed By: #### I NFLUAB ####[facility] [address] [place], [place] [address]Dr. Javy [facility] INFLUENZA A AG Negative Normal NEGATIVE SEE COMMENT [facility] Comment on above: Performed By: #### I NFLUAB ####[facility] [address] [place], [place] [address]Dr. Javy [facility] INFLUENZA B AG Negative Normal NEGATIVE SEE COMMENT [facility] Comment on above: Performed By: #### I NFLUAB ####[facility] [address] [place], [place] [address]Dr. Javy Jack HCG ( test) Josefa osuna Ql (U)Ordered By: Christina Anderson on 04-27-2022 HCG ( test) Ql (U) Negative [facility] HCG,Urineon 04-27-2022 Beta HCG ( test) Ql (U) Negative Normal [facility] Comment on above: Result Comment: PERF ORMED BY: [facility] [address] [place] [id number] PATHOLOGIST ASSISTANT TO THE DEAN TAYLOR AMARAL M.D. Performed By: #### U [facility] #### [address] [id number] [facility] Dean 04-27-2022 L ----- Specimen: [id number] Received: 04/27/22 Status: SRIDEVI Alfa Num: [id number] Spec Type: Surgical Subm Dr: Alejandro Alvarez DO Tissues: A Uterus w/ or w/o tubes ovaries except neoplastic or prolap (UTERUS, CERVIX A Uterus w/ or w/o tubes ovaries-neoplastic Procedures: HE/Karina, Gross/Micro L5, Gross/Micro L2 Age/ Patient Sex Location Account Attending Physician Talia Rivera 36/F [place] [id number] Alejandro Alvarez DO SPEC NUM: [id number] RECD: 04/27/22 STATUS: SRIDEVI GRIMM NUM: [id number] DICK: 04/27/[address] [facility] [address]: Alejandro Alvarez DO ENTERED: 04/27/22 [facility] DR: JOHNNIE TYPE: Surgical DEPT: S ORDERED: HE/7, Gross/Micro L5, Gross/Micro L2 ORDERED: HE/7, Gross/Micro L5, Gross/Micro L2 Pathological Diagnosis Uterus with cervix and bilateral fallopian tubes, total hysterectomy and bilateral salpingectomy: - Cervix with dilated vessels. - Late secretory phase endometrium. - Myometrium and serosa with no significant histopathology. - Bilateral fallopian tubes with hydrosalpinx and inclusion cyst. - No evidence of dysplasia, hyperplasia or malignancy identified. Clinical Information Menorrhagia, pelvic pain, hydrosalpinx, gram [id number] Gross Description Received in formalin labeled with [...] The lumen is dilated to 0.4 cm. [employer] Worker sections are Specimen: [id number] Received: 04/27/22 Status: SRIDEVI Grimm Num: [id number] Spec Type: Surgical Subm Dr: Alejandro Alvarez DO Tissues: A Uterus w/ or w/o tubes ovaries except neoplastic or prolap (UTERUS, CERVIX A Uterus w/ or w/o tubes ovaries-neoplastic Procedures: HE/7, Gross/Micro L5, Gross/Micro L2 Patient: Talia Rivera [id number] (Continued) Specimen: [id number] Received: 04/27/22 (Continued) Gross Description (Continued) Signed (signature on file) Rajat Taylor MD 04/28/22 1102 Specimen: [id number] Received: 04/27/22 Status: SRIDEVI Grimm Num: [id number] Spec Type: Surgical Subm Dr: Alejandro Alvarez DO Tissues: A Uterus w/ or w/o tubes ovaries except neoplastic or prolap (UTERUS, CERVIX A Uterus w/ or w/o tubes ovaries-neoplastic Procedures: HE/Karina, Gross/Micro L5, Gross/Micro L2 Patient: Talia Rivera [id number] (Continued) Specimen: [id number] Received: 04/27/22 (Continued) Gross Description (Continued) submitted [...] support the above pathologic diagnosis. CPT Codes 46176 Specimen: [id number] Received: 04/27/22 Status: SRIDEVI Grimm Num: [id number] Spec Type: Surgical Subm Dr: Alejandro Alvarez, Tissues: A Uterus w/ or w/o tubes ovaries except neoplastic or prolap (UTER (more content not included)... Normal [facility] COVID[place] [facility] [place] SARS-CoV-2 (COVID-19) RNA JESSICA+probe Ql (Unsp spec) Negative Normal Negative [facility] Comment on above: Order Comment: Healt hcare Worker?: N Result Comment: Testing for SARS-CoV-2 by RT-PCR This test was developed and its performance characteristics determined by [employer]) and validated at the [facility]. This test has not been FDA cleared [...] is terminated or revoked sooner. PERFORMED BY: [place] [address] PATHOLOGIST ASSISTANT TO THE DEAN TAYLOR AMARAL M.D. Performed By: #### C OVID 19 [facility] #### [address] COVID-19 Positive/NegativeOr dered By: Alejandro Alvarez on 04-25-2022 SARS-CoV-2 (COVID-19) N gene JESSICA+probe Ql (Resp) Negative Negative [facility] Comment on above: Testing for SARS-CoV -2 by RT-PCRThis test was developed and its performance characteristics determined by [employer]) and validated at the [facility]. This test has not been FDA cleared [...] the authorization is terminated or revoked sooner. CT Abdomen/Pelvis w/ Contras ton 03-10-2022 CT [...] by Gregg Porter on 03/10/2022 1536 Normal [facility] Specialist US RUQon 02-22-2022 US RUQ HISTORY: Abdominal [...] by Ole Benjamin on 02/22/2022 0935 Normal [facility] Vital Signs Date Time Vital Sign Value Performing Clinician Facility 11-21-2023 15:04-0400 Blood Pressure Location PT [facility] Inti Selarasthao Tarango [facility] 11-21-2023 15:04-0400 Diastolic blood pressure 82 mm[Hg] Elda Tarango [facility] 11-21-2023 15:04-0400 Heart rate 91 /min Elda Tarango [facility] 11-21-2023 15:04-0400 Respiratory rate 16 /min Elda Tarango [facility] 11-21-2023 15:04-0400 Systolic blood pressure 114 mm[Hg] Mohamad Mouchli [facility] 11-05-2023 10:22-0400 Diastolic blood pressure 68 mm[Hg] Mohamad Mouchli [facility] 11-05-2023 10:22-0400 Heart rate 80 /min Mohamad Mouchli [facility] 11-05-2023 10:22-0400 Respiratory rate 13 /min Mohamad Mouchli [facility] 11-05-2023 10:22-0400 SaO2% (BldA) [Mass fraction] 97 % Mohamad Mouchli [facility] [facility]23 10:22-0400 Systolic blood pressure 99 mm[Hg] Mohamad Mouchli [facility] 11-05-2023 10:10-0400 Diastolic blood pressure 89 mm[Hg] Mohamad Mouchli [facility] 11-05-2023 10:10-0400 Heart rate 89 /min Mohamad Mouchli [facility] 11-05-2023 10:10-0400 Respiratory rate 16 /min Mohamad Mouchli [facility] 11-05-2023 10:10-0400 SaO2% (BldA) [Mass fraction] 100 % Mohamad Mouchli [facility] 11-05-2023 10:10-0400 Systolic blood pressure 112 mm[Hg] Mohamad Mouchli [facility] 11-05-2023 10:05-0400 Diastolic blood pressure 65 mm[Hg] Mohamad Mouchli [facility] 11-05-2023 10:05-0400 Heart rate 75 /min Mohamad Mouchli [facility] 11-05-2023 10:05-0400 Respiratory rate 18 /min Mohamad Mouchli [facility] 11-05-2023 10:05-0400 SaO2% (BldA) [Mass fraction] 98 % Mohamad Mouchli [facility] 11-05-2023 10:05-0400 Systolic blood pressure 98 mm[Hg] Mohamad Mouchli [facility] 11-05-2023 09:55-0400 Respiratory rate 19 /min Mohamad Mouchli [facility] 11-05-2023 09:50-0400 Respiratory rate 18 /min Mohamad Mouchli [facility] 11-05-2023 09:45-0400 Respiratory rate 16 /min Mohamad Mouchli [facility] 11-05-2023 08:15-0400 Blood Pressure Location Mohamad Mouchli [facility] 11-05-2023 08:15-0400 Body temperature 97.52 [degF] Mohamad Mouchli [facility] 10-08-2023 14:27-0400 Blood Pressure Location Mohamad Mouchli [facility] 10-08-2023 14:27-0400 Diastolic blood pressure 83 mm[Hg] Mohamad Mouchli [facility] 10-08-2023 14:27-0400 Heart rate 89 /min Mohamad Mouchli [facility] 10-08-2023 14:27-0400 Respiratory rate 16 /min Elda Tarango [facility] 10-08-2023 14:27-0400 Systolic blood pressure 124 mm[Hg] Elda Tarango [facility] 07-19-2023 12:23-0500 Body temperature 98.24 [degF] [facility] 07-19-2023 12:23-0500 Diastolic blood pressure 83 mm[Hg] [facility] 07-19-2023 12:23-0500 Heart rate 90 /min [facility] 07-19-2023 12:23-0500 Respiratory rate 18 /min [facility] 07-19-2023 12:23-0500 SaO2% (BldA) [Mass fraction] 98 % [facility] 07-19-2023 12:23-0500 Systolic blood pressure 135 mm[Hg] [facility] 04-27-2022 14:07-0400 Diastolic blood pressure 68 mm[Hg] MD Malu Fisher Work Phone: [facility] 04-27-2022 14:07-0400 Heart rate 90 /min MD Malu Fisher Work Phone: [facility] 04-27-2022 14:07-0400 SaO2% (BldA) [Mass fraction] 96 % MD Malu Fisher Work Phone: [facility] 04-27-2022 14:07-0400 Systolic blood pressure 107 mm[Hg] MD Malu Fisher Work Phone: [facility] 04-27-2022 13:07-0400 Inhaled oxygen flow rate 2 L/min MD Malu Fisher Work Phone: [facility] 04-27-2022 12:49-0400 Body temperature 98.1 [degF] MD Malu Fisher Work Phone: [facility] 04-27-2022 10:35-0400 Respiratory rate 16 /min MD Malu Fisher Work Phone: [facility] 04-27-2022 07:08-0400 Body height 160.02 cm MD Malu Fisher Work Phone: [facility] 04-27-2022 07:08-0400 Body mass index (BMI) [Ratio] 26.5 kg/m2 MD Malu Fisher Work Phone: [facility] 04-27-2022 07:08-0400 Body weight 68.03 kg MD Malu Fisher Work Phone: [facility] Encounters Encounter Date Encounter Type Care Provider Facility Start: 01-21-2024 End: 01-21-2024 ambulatory Elda Tarango Facility:[facility] Start: 01-21-2024 End: 01-21-2024 Patient encounter procedure Elda Tarango [facility] Start: 11-21-2023 End: 11-21-2023 ambulatory Elda Tarango Facility:[facility] Start: 11-21-2023 End: 11-21-2023 Patient encounter procedure Elda Tarango [facility] Start: 11-05-2023 End: 11-05-2023 ambulatory Elda Tarango Facility[facility] Start: 11-05-2023 End: 11-05-2023 Patient encounter procedure Elda Tarango [facility] Start: 10-15-2023 End: 10-15-2023 ambulatory Elda Tarango Facility:[facility] Start: 10-15-2023 End: 10-15-2023 Patient encounter procedure Elda Tarango [facility] Start: 10-08-2023 End: 10-08-2023 ambulatory Elda Tarango Facility:[facility] Start: 10-08-2023 End: 10-08-2023 Patient encounter procedure Elda Tarango [facility] Start: 09-10-2023 End: 09-11-2023 ambulatory PENOLA P SANCHEZ Not Available Start: 09-10-2023 End: 09-11-2023 ambulatory PENOLA P SANCHEZ Not Available Start: 09-04-2023 End: 09-04-2023 ambulatory PENOLA P SANCHEZ Not Available Start: 07-19-2023 End: 07-19-2023 Emergency department patient visit Halley Ratliff [facility] Start: 11-07-2022 End: 11-07-[address] MALU FISHER . Facility:[facility] Start: 08-04-2022 End: 08-05-[address] MALU FISHER . Facility:[facility] Start: 07-20-2022 Encounter for genera l adult medical examination without abnormal findings DR MALU FISHER . [facility] Start: 07-18-2022 End: 07-19-[address] MALU FISHER . Facility:[facility] Start: 07-18-2022 End: 07-19-2022 Encounter for general adult medical examination without abnormal findings DR MALU FISHER . Facility:[facility] Start: 07-13-2022 End: 07-13-[address] MALU FISHER . Facility:[facility] Start: 04-27-2022 End: 04-27-2022 ambulatory Alejandro Toussainti Facility:[facility] Start: 04-27-2022 End: 04-27-2022 Admission to same day surgery center MD Malu Fisher Work Phone: [facility] [place] Start: 04-27-2022 End: 04-27-2022 ambulatory MD Malu Fisher Work Phone: [facility] Work Phone: Start: 04-25-2022 End: 04-25-2022 ambulatory Alejandro Visci Facility:[facility] Start: 04-25-2022 End: 04-25-2022 ambulatory MD Malu Fisher Work Phone: [facility] Work Phone: Start: 04-25-2022 End: 04-25-2022 Patient encounter procedure MD Malu Fisher Work Phone: [facility] Procedures Date Procedure Procedure Detail Performing Clinician Start: 11-05-2023 Colonoscopy Elda Tarango Start: 11-05-2023 Esophagogastroduodenoscopy Elda hidalgo Start: 04-27-2022 Total hysterectomy via vaginal approach MD Malu Fisher Work Phone: [facility] Gallbladder structur e (body structure) Elda Tarango Hysterectomy Elda Mofartun Plan of Treatment Date Care Activity Detail Author Start: 04-27-2022 [facility] Start: 04-27-2022 Hospital admission [facility] Start: 04-25-2022 [facility] Patient referral [facility] Work Phone: SARS-CoV-2 (COVID-19 ) N gene [Presence] in Respiratory specimen by JESSICA with probe detection [facility] Work Phone: Immunizations Immunization Date Immunization Notes Care Provider Danny escudero 02-21-1999 diphtheria and tetan us toxoids, adsorbed for pediatric use Elda Tarango [facility] 02-21-1999 measles, mumps and rubella virus vaccine Elda Tarango [facility] 11-10-1991 DTaP, unspecified formulation Sead Emelina [facility] 11-21-1988 Hib, unspecified formulation Elda Tarango [facility] 01-18-1988 measles, mumps and rubella virus vaccine Elda Tarango [facility] Payers Date Payer Category Payer Private Health Insurance [id number] 2022 Self-pay [id number] 1985 Unknown [id number] 1986 Unknown [id number] [id number] 1986 Unknown [id number] 1986 Unknown [id number] [id number] 1986 Unknown [id number] [id number] 1986 Unknown [id number] [id number] 1986 Unknown [id number] [id number] 1986 Unknown [id number] [id number] 1986 Unknown [id number] [id number] 1986 Unknown [id number] 2.16.840.1.672137.3.579.2.727 1986 Unknown [id number] [id number] 1986 Unknown [id number] [id number] 1986 Unknown [id number] [id number] 1959 Unknown [id number] 1959 Unknown [id number] 1959 Unknown [id number] Unknown [facility] [id number] Unknown [id number] [id number] Unknown [id number] Social History Date Type Detail Facility Tobacco smoking stat [facility] Unknown if ever smoked [facility] Start: 1985 Sex Assigned At Female F [facility] Start: 08-05-2019 End: 04-27-2022 Tobacco smoking status NHIS Smoker (finding) [facility] Tobacco smoking status No Smokin g Status Entered [facility] Sex Assigned At Female [facility] Start: 10-08-2023 End: 11-21-2023 Tobacco smoking status Never smoked tobacco (finding) [facility] Goals Date Patient Goal Desired Activity /State Functional Status Date Assessment Result Facility 11-21-2023 Functional Status N/A [facility] 11-05-2023 Functional Status N/A [facility] 10-08-2023 Functional Status N/A [facility] 07-19-2023 Functional Status N/A [facility] Clinical Notes 07-19-2023 to 11-06-2023 Note Date & Type Note Facility 11-06-2023 Note [id number] #[id number] [facility] 11-05-2023 Evaluation + Plan note Extrac shira from: Title:ANES Post-operative Note - General Author: Romero So Jr., DO Date:11/05/23 Plan Transfer/Discharge: Transfer/Discharge Discharge when meets criteria ( From PACU to Ambulatory Surgery Unit, and To home ). [facility]05-13-2024 Hospital Discharge instructions Patient Education 11/05/2023 10:04:42 Colonoscopy, Care After Surgery [facility] (CUSTOM) Colonoscopy Care After Surgery Please read the instructions outlined below and refer to this sheet in the next few weeks. These discharge instructions provide you with general information on caring for yourself after you leave thespital. Your doctor may also give you specific instructions. While your treatment has been planned according to the most current medical practices available, unavoidable complications occasionally occur. If you have any problems or questions after discharge, please call your doctor. ACTIVITY You may resume your regular activity, but move at a slower pace for the next 24 hours. Take frequent rest periods for the next 24 hours. Walking will help get rid of the air and reduce the bloated feeling in your abdomen (belly). No driving for 24 hours (because of the anesthesia (medicine) used during the test). You may shower. Do not sign any important legal documents or operate any machinery for 24 hours (because of the anesthesia used during the test). NUTRITION Drink plenty of fluids. You may resume your normal diet as instructed by your doctor. Begin with a light meal and progress to your normal diet. Heavy or fried foods are harder to digestand may make you feel nauseated (sick to your stomach). Avoid alcoholic beverages for 24 hours or as instructed. MEDICATIONS You may resume your normal medications unless your doctor tells you otherwise. WHAT YOU CAN EXPECT TODAY Some feelings of bloating in the abdomen. Passage of more gas than usual. Spotting of blood in your stool or on the toilet paper. FOLLOW-UP Your doctor will discuss the results of your test with you. SEEK IMMEDIATE MEDICAL ATTENTION IF: There is more than a spotting of blood in your stool. There is abdominal distention (your abdomen is swollen). There is vomiting. You have a temperature over 101.5 F. There is abdominal pain or discomfort that is severe or gets worse throughout the day. 11/05/2023 10:04:40 Endoscopy, Care After Procedure [facility] [place] [place]oscopy Care After Procedure Please read the instructions outlined below and refer to this sheet in the next few weeks. These discharge instructions provide you with general information on [facility] Your doctor may also give you specific instructions. While your treatment has been planned according to the most current medical practices available, unavoidable complications occasionally occur. If you have any problems or questions after discharge, please call your doctor. ACTIVITY You may resume your regular activity but move at a slower pace for the next 24 hours. Take frequent rest periods for the next 24 hours. Walking will help expel (get rid of) the air and reduce the bloated feeling in your abdomen. No driving for 24 hours (because of the anesthesia (medicine) used during the test). You may shower. Do not sign any important legal documents or operate any machinery for 24 hours (because of the anesthesia used during the test). NUTRITION Drink plenty of fluids. You may resume your normal diet. Begin with a light meal and progress to your normal diet. Avoid alcoholic beverages for 24 hours or as instructed by your caregiver. MEDICATIONS You may resume your normal medications unless your caregiver tells you otherwise. WHAT YOU CAN EXPECT TODAY You may experience abdominal discomfort such as a feeling of fullness or gas pains. FOLLOW-UP Your doctor will discuss the results of your test with you. SEEK IMMEDIATE MEDICAL ATTENTION IF ANY OF THE FOLLOWING OCCUR: Excessive nausea (feeling sick to your stomach) and/or vomiting. Severe abdominal pain and distention (swelling). Trouble swallowing. Temperature over 100 F (37.8 C). Rectal bleeding or vomiting of blood. Document Released: 01/23/2005 Document Re-Released: 12/03/2006 [employer] Patient Information 2010 [employer]. 11/05/2023 10:04:36 Hiatal Hernia Hiatal Hernia A hiatal hernia occurs when part of the stomach slides above the muscle that separates the abdomen from the chest (diaphragm). A person can be born with a hiatal hernia (congenital), or it may develop over time. In almost all cases of hiatal hernia, only the top part of the stomach pushes through the diaphragm. Many people have a hiatal hernia with no symptoms. The larger the hernia, the more likely it is that you will have symptoms. In some cases, a hiatal hernia allows stomach acid to flow back into the tube that carries food from your mouth to your stomach (esophagus). This may cause heartburn symptoms. The development of heartburn symptoms may mean that you have a condition called gastroesophageal reflux disease (GERD). What are the causes? This condition is caused by a weakness in the opening (hiatus) where the esophagus passes through the diaphragm to attach to the upper part of the stomach. A person may be born with a weakness in thehiatus, or a weakness can develop over time. What increases the risk? This condition is more likely to develop in: Older people. Age is a major risk factor for a hiatal hernia, especially if you are over the age of50. women. People who are overweight. People who have frequent constipation. What are the signs or symptoms? Symptoms of this condition usually develop in the form of GERD symptoms. Symptoms include: Heartburn. Upset stomach (indigestion). Trouble swallowing. Coughing or wheezing. Wheezing is making high-pitched whistling sounds when you breathe. Sore throat. Chest pain. Nausea and vomiting. How is this diagnosed? This condition may be diagnosed during testing for GERD. Tests that may be done include: X-rays of your stomach or chest. An upper gastrointestinal (GI) series. This is an X-ray exam of your GI tract that is taken after you swallow a chalky liquid that shows up clearly on the X-ray. Endoscopy. This is a procedure to look into your stomach using a thin, flexible tube that has a tiny camera and light on the end of it. How is this treated? This condition may be treated by: Dietary and lifestyle changes to help reduce GERD symptoms. Medicines. These may include: ?Uxbh-tci-cbqfscl antacids. ?Medicines that make your stomach empty more quickly. ?Medicines that block the production of stomach acid (H2 blockers). ?Stronger medicines to reduce stomach acid (proton pump inhibitors). Surgery to repair the hernia, if other treatments are not helping. If you have no symptoms, you may not need treatment. Follow these instructions at home: Lifestyle and activity Do not use any products that contain nicotine or tobacco. These products include cigarettes, chewing tobacco, and vaping devices, such as e-cigarettes. If you need help quitting, ask your health careprovider. Try to achieve and maintain a healthy body weight. Avoid putting pressure on your abdomen. Anything that puts pressure on your abdomen increases the amount of acid that may be pushed up into your esophagus. ?Avoid bending over, especially after eating. ?Raise the head of your bed by putting blocks under the legs. This keeps your head and esophagus higher than your stomach. ?Do not wear tight clothing around your chest or stomach. ?Try not to strain when having a bowel movement, when urinating, or when lifting heavy objects. Eating and drinking Avoid foods that can worsen GERD symptoms. These may include: ?Fatty foods, like fried foods. ?Hull fruits, like oranges or lemon. ?Other foods and drinks that contain acid, like orange juice or tomatoes. ?Spicy food. ?Chocolate. Eat frequent small meals instead of three large meals a day. This helps prevent your stomach from getting too full. ?Eat slowly. ?Do not lie down right after eating. ?Do not eat 1 2 hours before bed. Do not drink beverages with caffeine. These include cola, coffee, cocoa, and tea. Do not drink alcohol. General instructions Take tbug-lby-wofjliw and prescription medicines only as told by your health care provider. Keep all follow-up visits. Your health care provider will want to check that any new prescribed medicines are helping your symptoms. Contact a health care provider if: Your symptoms are not controlled with medicines or lifestyle changes. You are having trouble swallowing. You have coughing or wheezing that will not go away. Your pain is getting worse. Your pain spreads to your arms, neck, jaw, teeth, or back. You feel nauseous or you vomit. Get help right away if: You have shortness of breath. You vomit blood. You have bright red blood in your stools. You have black, tarry stools. These symptoms may be an emergency. Get help right away. Call 911. Do not wait to see if the symptoms will go away. Do not drive yourself to the hospital. Summary A hiatal hernia occurs when part of the stomach slides above the muscle that separates the abdomen from the chest. A person may be born with a weakness in the hiatus, or a weakness can develop over time. Symptoms of a hiatal hernia may include heartburn, trouble swallowing, or sore throat. Management of a hiatal hernia includes eating frequent small meals instead of three large meals a day. Get help right away if you vomit blood, have bright red blood in your stools, or have black, tarry stools. This information is not intended to replace advice given to you by your health care provider. Make sure you discuss any questions you have with your health care provider. Document Revised: 08/08/2022 Document Reviewed: 08/08/2022 [employer] Patient Education 2022 [email or web address]. 11/05/2023 10:04:31 Esophagitis Esophagitis Esophagitis is inflammation of the esophagus. The esophagus is the tube that carries food from the mouth to the stomach. Esophagitis can cause soreness or pain in the esophagus. This condition can make it difficult and painful to swallow. What are the causes? Most causes of esophagitis are not serious. Common causes of this condition include: Gastroesophageal reflux disease (GERD). This is when stomach contents move back up into the esophagus (reflux). Repeated vomiting. An allergic reaction, especially caused by food allergies (eosinophilic esophagitis). Injury to the esophagus by swallowing large pills with or without water, or swallowing certain types of medicines. Swallowing harmful chemicals, such as household cleaning products. Drinking a lot of alcohol. An infection of the esophagus. This most often occurs in people who have a weakened immune system. Radiation or chemotherapy treatment for cancer. Certain diseases such as sarcoidosis, Crohn's disease, and scleroderma. What are the signs or symptoms? Symptoms of this condition include: Difficult or painful swallowing. Pain with swallowing acidic liquids, such as citrus juices. You may also have pain when you burp. Chest pain and difficulty breathing. Nausea and vomiting. Pain in the abdomen. Weight loss. Ulcers in the mouth and white patches in the mouth (candidiasis). Fever. Coughing up blood or vomiting blood. Stool that is black, tarry, or bright red. How is this diagnosed? This condition may be diagnosed based on your medical history and a physical exam. You may also have other tests, including: A test to examine your esophagus and stomach with a small flexible tube with a camera (endoscopy). A test that measures the acidity level in your esophagus. A test that measures how much pressure is on your esophagus. A barium swallow or modified barium swallow to show the shape, size, and functioning of your esophagus. Allergy tests. How is this treated? Treatment for this condition depends on the cause of your esophagitis. In some cases, steroids or other medicines may be given to help relieve your symptoms or to treat the underlying cause of your condition. You may have to make some lifestyle changes, such as: Avoiding alcohol. Quitting any products that contain nicotine or tobacco. These products include cigarettes, chewing tobacco, and vaping devices, such as e-cigarettes. If you need help quitting, ask your health care provider. Changing your diet. Exercising. Changing your sleep habits and your sleep environment. Follow these instructions at home: Medicines Take xpnn-jul-cjdqjgs and prescription medicines only as told by your health care provider. Do not take aspirin, ibuprofen, or other NSAIDs unless your health care provider told you to do so. If you have trouble taking pills: ?Use a pill splitter to decrease the size of the pill. This will decrease the chance of the pill getting stuck or injuring your esophagus. ?Drink water after you take a pill. Eating and drinking Avoid foods and drinks that seem to make your symptoms worse. Follow a diet as recommended by your health care provider. This may involve avoiding foods and drinks such as: ?Coffee and tea, with or without caffeine. ?Drinks that contain alcohol. ?Energy drinks and sports drinks. ?Carbonated drinks or sodas. ?Chocolate and cocoa. ?Peppermint and mint flavorings. ?Garlic and onions. ?Horseradish. ?Spicy and acidic foods, including peppers, chili powder, salomon powder, vinegar, hot sauces, and barbecue sauce. ?Hull fruit juices and citrus fruits, such as oranges, yvrose, and limes. ?Tomato-based foods, such as red sauce, chili, salsa, and pizza with red sauce. ?Fried and fatty foods, such as donuts, italian fries, potato chips, and high-fat dressings. ?High-fat meats, such as hot dogs and fatty cuts of red and white meats, such as rib eye steak, sausage, ham, and murphy. ?High-fat dairy items, such as whole milk, butter, and cream cheese. Lifestyle Eat small, frequent meals instead of large meals. Avoid drinking large amounts of liquid with your meals. Avoid eating meals during the 2 3 hours before bedtime. Avoid lying down right after you eat. Do not exercise right after you eat. Do not use any products that contain nicotine or tobacco. These products include cigarettes, chewing tobacco, and vaping devices, such as e-cigarettes. If you need help quitting, ask your health careprovider. General instructions Pay attention to any changes in your symptoms. Let your health care provider know about them. Wear loose-fitting clothing. Do not wear anything tight around your waist that causes pressure on your abdomen. Raise (elevate) the head of your bed about 6 inches (15 cm). You may need to use a wedge to do this. Try relaxation strategies such as yoga, deep breathing, or meditation to manage stress. If you needhelp reducing stress, ask your health care provider. If you are overweight, reduce your weight to an amount that is healthy for you. Ask your health care provider for guidance about a safe weight loss goal. Keep all follow-up visits. This is important. Contact a health care provider if: You have new symptoms. You have unexplained weight loss. You have difficulty swallowing, or it hurts to swallow. You have wheezing or a cough that does not go away. Your symptoms do not improve with treatment. You have frequent heartburn for more than two weeks. Get help right away if: You have sudden severe pain in your arms, neck, jaw, teeth, or back. You suddenly feel sweaty, dizzy, or light-headed. You have chest pain or shortness of breath. You vomit and the vomit is green, yellow, or black, or it looks like blood or coffee grounds. Your stool is red, bloody, or black. You have a fever. You cannot swallow, drink, or eat. These symptoms may represent a serious problem that is an emergency. Do not wait to see if the symptoms will go away. Get medical help right away. Call your local emergency services (911 in the [place] Do not drive yourself to the hospital. Summary Esophagitis is inflammation of the esophagus. Most causes of esophagitis are not serious. Follow your health care provider's instructions about eating and drinking. Contact a health care provider if you have new symptoms, have weight loss, or coughing that does not stop. Get help right away if you have severe pain in the arms, neck, jaw, teeth, or back, or if you have chest pain, shortness of breath, or fever. This information is not intended to replace advice given to you by your health care provider. Make sure you discuss any questions you have with your health care provider. Document Revised: 12/20/2020 Document Reviewed: 12/20/2020 [employer] Patient Education 2022 [email or web address]. Follow Up Care 10/23/2023 10:33:24 With:Emelina HARLEY, SUMA [place], [facility] Address: [address], [address] [place] [address]- [phone] Business (1) When: Unknown Comments:-Office to call for pathology results. Call for any problems. [phone] [facility]04-22-2024 Evaluation + Plan note Diagnostic Tests Pending * Calprotectin, Fecal 10/15/23 * Celiac Disease Comprehensive 10/15/23 * Enteric Panel by PCR 10/15/23 * O & P Exam, Routine 10/15/23 * Pancreatic Elastase, Fecal 10/15/23 * H. pylori Stool Ag 10/15/23 [facility]04-15-2024 Evaluation + Plan note Future Scheduled Tests Laboratory* Pancreatic Elastase, Fecal 10/08/23 * Calprotectin, Fecal 10/08/23 * O & P Exam, Routine 10/08/23 * Celiac Disease Comprehensive 10/08/23 * H. pylori Stool Ag 10/08/23 * Clostridium Difficile PCR 10/08/23 * Enteric Panel by PCR 10/08/23 [facility] [id number] Hospital Discharge instructions Patient Education 07/19/2023 13:43:08 Wrist Splint [...] less rigid. A brace is given for [facility] use while a splintis given for short term use. Wrist splints [...] care provider about when to wear the splintor brace to make sure your wrist heals [...] to support your wrist without blocking your bloodsupply. How long you need to wear the [...] your health care provider or the splint medical translator for cleaning and caringfor your splint or brace. It is important [...] contain nicotine or tobacco, such as cigarettes, e- cigarettes, and chewing tobacco. These can delay bone healing. If you need help quitting, ask your health care provider. Take podr-lup-htjuzhe and prescription medicines only as told by [...] provider. Document Revised: 10/14/2020 Document Reviewed: 10/14/2020 [employer] Patient Education 2022 [email or web address]. 07/19/2023 13:43:08 Wrist Sprain, Adult Wrist Sprain, [...] have a splint, brace, or cast on yourwrist. Do exercises as told by your health care provider. Return to your normal activities as told by your health care provider. Ask your health care provider what activities are safe for you. General instructions Take ifsx-wcq-nepbzyq and prescription medicines only as told by your health care provider. Do not use any products that contain nicotine or tobacco, such as cigarettes, e- cigarettes, and chewing tobacco. These can delay healing. [...] provider. Document Revised: 10/18/2020 Document Reviewed: 10/18/2020 [employer] Patient Education 2022 [email or web address]. 07/19/2023 13:43:08 Shoulder Sprain Shoulder Sprain A shoulder sprain is a partial or complete tear in one of the tough, fiber-like tissues (ligaments)in the shoulder. The ligaments in the shoulder [...] Remove it only as told by your healthcare provider. Loosen the sling or brace if [...] you have a sling or brace on yourshoulder. If you were shown how to do any exercises, do them as told by your health care provider. General instructions If directed, put ice on the affected area. ?Put ice in a plastic bag. ?Place a towel between your skin and the bag. ?Leave the ice on for 20 minutes, 2 3 times a day. Take lcwn-wkx-xkixqqt and prescription medicines only as told by your health care provider. Do not use any products that contain nicotine or tobacco, such as cigarettes, e- cigarettes, and chewing tobacco. These can delay healing. [...] in one of the tough, fiber-like tissues (ligaments)in the shoulder. This condition may be caused [...] provider. Document Revised: 02/27/2022 Document Reviewed: 03/01/2022 [employer] Patient Education 2022 [email or web address]. Follow Up Care 07/19/2023 12:15:24 With:Hari Martell Address: [address] [place] [phone] Business (1) When:07/22/2023 13:36:53 Comments:If the pain does not get better in the next few days follow-up with Dr. Martell. If the pain gets worse or return to the emergency room. With:Malu Fisher Address: [address] [place] [phone] Business (1) When:Within 3 Day(s) [facility]01-25-2024 Evaluation + Plan noteExtracted from: Title:ED Note Author:Gaudencio Banuelos, Halley Gonzalez [...] Complete Right XR Wrist 3+ Views Right [facility] Future Appointments Appointment Date:01/21/2024 01:45:00 PM Scheduled Provider:Emelina HARLEY, Elda Dewey Location:[facility] App[facility]ment Type[facility] Follow Up [facility] Evaluation noteNo assessment information available [facility] Work Phone: Hospital course Narrative No data available for this section [facility] Additional Instructions DISCHARGE INSTRUCTIONS FOR [...] FOLLOW UP -[Please call the office at ([phone]) to make follow appointment before leaving the hospital]. -[4 Weeks] [ ][facility] Work Phone: Hospital Discharge instructions No data available for this section [facility] Progress note No data available for this section [facility] Assessments No Assessments Information Available Summary Purpose Family History No Family History Records Found Relationship Condition Age at Onset Recorded Date/T zeeshan grandparent Myocardial infarction Unknown Relationship Condition Age at Onset Recorded Date/T zeeshan grandparent Myocardial infarction Unknown Not Specified Diabetes mellitus Unknown grandparent Chronic obstructive pulmonary disease Unk nown Malignant neoplasm of lung Unknown Pulmonary emphysema Unknown Advance Directives No Advanced Directives Records Found Advance Directive Response Recorded Date/ Time Advance Directives No June 29, 2017 10:48am Chief Complaint and Reason for Visit Chief Complaint Menorrhagia, Pelvic Pain, Hydrosalpinx Chief Complaint Menorrhagia, Pelvic Pain, Hydrosalpinx Menorrhagia, Pelvic Pain, Hydrosalpinx Additional Source Comments INFORMATION SOURCE (unrecogn ized section and content) DATE CREATED AUTHOR 03/25/2022 [facility] dical Specialist DATE CREATED AUTHOR AUTHOR'S ORGANIZ ATION 05/02/2022 [facility] DATE CREATED AUTHOR AUTHOR'S ORGANIZ ATION 11/08/2022 [facility] DATE CREATED AUTHOR AUTHOR'S ORGANIZ ATION 09/15/2023 [facility] dical Specialists EPIC DATE CREATED AUTHOR AUTHOR'S ORGANIZ ATION 02/06/2024 [facility] Care Teams (unrecognized sec tion and content) Team Status: Inactive Member Role Status Dates Malu Fisher MD Primary Care Provider Active Alejandro Alvarez DO Attending Provider Active Team Status: Active Member Role Status Dates Malu Fisher MD Primary Care Provider Active Goals (unrecognized section and content) Goals may be documented in a n alternate section No data available for this section No data available for this section No data available for this section No data available for this section No data available for this section No data available for this section [...] BE BASED ON THE PRIMARY CLINICAL RECORDS. [employer] provides no warranty or guarantee of the accuracy or completeness of information in this document.
--- NOTE | 2024-12-19 11:56 | XR_ITS ---
The [address] [address] Patient Name: MEERA HADDAD MRN: [id number] date: 1985 Sex: F Assigned Patient Location: LAB Current Patient Location: LAB Accession/Order Number: [id number] Exam Date: 12/19/2024 12:48 Report Date: 12/19/2024 12:49 At the request of: MALU LEA MD Procedure: XR acute abdomen series XR acute abdomen series 12/19/2024 12:20 PM SIGNS AND SYMPTOMS: Abdominal pain PROTOCOL: Frontal radiographs of the chest, abdomen, and pelvis COMPARISON: 11/07/2022 FINDINGS: The trachea is midline. The heart and mediastinal structures are within normal limits. The lung parenchyma is clear. The bony thorax is intact. There is evidence of prior cholecystectomy in the right upper quadrant. There is a 1 to 2 mm stone in the inferior pole of the left renal collecting system. There is a nonobstructive bowel gas pattern. There is a moderate amount stool throughout colon. Vascular calcifications are present in the pelvis. There is a levoconvex curvature of the lumbar spine. XR/XR acute abdomen series IMPRESSION: No acute cardiopulmonary pathology. No bowel obstruction or free air. There is a 1 to 2 mm stone in the inferior pole of the left renal collecting system. There is a moderate amount stool throughout colon. Impression dictated by: Vinicio Kulkarni M.D. 12/19/2024 12:49 PM Dictation Location: [employer] Electronically authenticated by: [id number] Y Date: 12/19/2024 12:49
[2024-12-19 12:10] LABS: Basophils Percent Auto 0.5 % (0.2-2.0); Eosinophils Absolute Auto 0.1 10^3/uL (0.0-0.7); Eosinophils Percent Auto 1.5 % (0.9-7.0); Hematocrit 43.7 % (36.0-48.0); Hemoglobin 14.6 g/dL (12.0-16.0); Immature Granulocytes Abs Auto 0.01 10^3/uL (0.00-0.03); Immature Granulocytes Pct Auto 0.2 % (0.0-0.5); Lymphocytes Percent Auto 33.1 % (20.5-60.0); Mean Corpuscular HGB Conc 33.4 g/dL (29.9-35.2); Mean Corpuscular Hemoglobin 30.4 pg (26.7-34.0); Monocytes Absolute Auto 0.5 10^3/uL (0.3-0.8); Monocytes Percent Auto 8.4 % (1.7-12.0); Neutrophils Absolute Auto 3.5 10^3/uL (1.4-6.5); Neutrophils Percent Auto 56.3 % (43.0-75.0); Platelet Count 368 10^3/uL (150-450); Red Cell Distribution Width 11.9 % (11.0-15.0); White Blood Count 6.2 10^3/uL (4.0-11.0)
[2024-12-19 12:18] LABS: Estimated Average Glucose 105 mg/dL; Glycohemoglobin A1C 5.3 % (4.5-6.2)
[2024-12-19 13:22] LABS: Alanine Aminotransferase 22 U/L (14-59); Albumin Globulin Ratio 0.9; Albumin Level 3.4 g/dL (3.4-5.0); Alkaline Phosphatase 103 U/L (46-116); Amylase 45 U/L (25-115); Anion Gap 8.8; Aspartate Amino Transferase 14 U/L (15-37); BUN Creatinine Ratio 14.3; Bilirubin Total 0.4 mg/dL (0.2-1.0); Calcium 9.2 mg/dL (8.5-10.1); Carbon Dioxide 31.6 mmol/L (21.0-32.0); Chloride 105 mmol/L (98-107); Chol HDL Ratio 2.9; Cholesterol 145 mg/dL (<=200); Estimated GFR (African America >60 (>=60 mL/min/1.73m^2); Estimated GFR (Non-African Ame >60 (>=60 mL/min/1.73m^2); Free T3 2.99 pg/mL (2.18-3.98); Globulin 3.6 g/dL; Glucose 92 mg/dL (74-106); HDL Cholesterol 50 mg/dL (40-60); LDL Cholesterol Calculated 72.6 mg/dL; Potassium 4.4 mmol/L (3.5-5.1); Sodium 141 mmol/L (136-145); Thyroid Stimulating Hormone 1.256 uIU/mL (0.358-3.740); Triglycerides 112 mg/dL (<=150); VLDL CHOLESTEROL 22.4 mg/dL
[2024-12-20 06:08] LABS: Insulin 9.5 uIU/mL (2.6-24.9)
== END 2024-12-19 11:40 | disposition home or self-care (01) ==
PROVIDERS: PCP Family Medicine; Visit Provider Family Medicine
DX: Z00.00 Encounter for general adult medical examination without abnormal findings (principal); R63.1 Polydipsia; R19.00 Intra-abdominal and pelvic swelling, mass and lump, unspecified site; N20.0 Calculus of kidney
CPT/HCPCS: 36415; 74022; 80053; 80061; 82150; 83036; 83525; 83540; 83690; 84436; 84443; 84481; 85025